=== PATIENT | male | born 1935 | race Caucasian/White ===

== ENCOUNTER → 2017-01-08 | Outpatient (CLI) | payer OTHER, BC ==
[~2017-01-08] MED LIST: CARV25TA PO; CEPH500C2 PO; FINA5TAB; LISI-725 PO; TAMS0.4C38 PO; TORS10TA14 PO; WARF5TAB7 PO
[2017-01-08 12:57] LABS: BLOOD UREA NITROGEN 21 mg/dl (7-18); BUN/CREATININE RATIO 17.6 (10-20); CALCIUM 8.4 mg/dl (8.5-10.1); CARBON DIOXIDE 27 mmol/L (21-32); CHLORIDE 108 mmol/L (98-107); GLUCOSE 103 mg/dl (70-99); POTASSIUM 4.4 mmol/L (3.5-5.1); SODIUM 141 mmol/L (136-145)
== END | disposition home or self-care (01) ==
LOC: C.LABPVFM 09:54
PROVIDERS: ATTEND Internal Medicine Cardiovascular Disease
DX: I42.9 Cardiomyopathy, unspecified (principal)

== ENCOUNTER 2017-12-16 11:05 | Emergency (ER) | payer OTHER, BC ==
[~2017-12-16] VITALS: Ht 182.9 cm; Wt 94.5 kg
[~2017-12-16 11:05] MED LIST changes: -CEPH500C2 PO; -FINA5TAB; -LISI-725 PO; +LSN10 PO; +PRS5 PO; -TORS10TA14 PO
[2017-12-16 11:09] VITALS: TEMP 36.6; Ht 182.9 cm; Wt 94.5 kg
[2017-12-16] MEDS ORDERED: DIPHTHERIA/TETANUS/PERTUSSIS 0.5 ML SYR/VIAL IM. ONE (11:45)
[2017-12-16] MEDS ORDERED: WARF10TA4 PO (12:32)
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
[2017-12-16 13:00] VITALS: PULSE 70; O2SAT 98
[2017-12-16 13:43] VITALS: BP 96/64
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
== END 2017-12-16 13:45 | disposition home or self-care (01) ==
LOC: C.EDB 11:07 → C.EDD 13:45
DX: S51.812A Laceration without foreign body of left forearm, initial encounter (principal); S50.11XA Contusion of right forearm, initial encounter; Y04.8XXA Assault by other bodily force, initial encounter; Y07.499 Other family member, perpetrator of maltreatment and neglect; Z87.442 Personal history of urinary calculi; I48.91 Unspecified atrial fibrillation; I11.0 Hypertensive heart disease with heart failure; I50.9 Heart failure, unspecified; N40.0 Benign prostatic hyperplasia without lower urinary tract symptoms; Z95.0 Presence of cardiac pacemaker; I42.9 Cardiomyopathy, unspecified; Z98.890 Other specified postprocedural states; Z80.0 Family history of malignant neoplasm of digestive organs; Z80.43 Family history of malignant neoplasm of testis; Z79.899 Other long term (current) drug therapy; Z79.01 Long term (current) use of anticoagulants; Z23 Encounter for immunization

== ENCOUNTER 2018-05-16 12:18 | Inpatient (IN) ==
[2018-05-16] MEDS ORDERED: SODIUM CHLORIDE 0.9% 1000ML 1,000 ML IV SCH ×2 (13:15→14:45)
[2018-05-16 13:52] LABS: iSTAT Hemoglobin 12.6 g/dl (14.0-18.0); iSTAT Ionized Calcium 1.1 mmol/l (1.12-1.32)
[2018-05-16 13:54] LABS: Hematocrit (blood only) 33.3 % (42-52); Hemoglobin 11.9 g/dL (14.0-18.0); Mean Corpuscular Hgb Conc 35.7 g/dL (32-36); Mean Corpuscular Volume 87.2 fL (80-100); RDW Coefficient of Variation 16.8 % (11.5-14.5); RDW Standard Deviation 54.1 fL (36.4-46.3); Red Blood Count 3.82 M/uL (4.7-6.1); White Blood Count 8.77 K/uL (4.8-10.8)
--- NOTE | 2018-05-16 14:08 | XRay Report ---
XR chest 1V portable HISTORY: 83 years-old Male Sepsis acute sepsis COMPARISON: Chest radiograph 03/06/2018 TECHNIQUE: Portable AP view of the chest FINDINGS: Cardiac silhouette is enlarged, unchanged. Calcification of the thoracic aortic arch. Stable position ing of left subclavian pacer/AICD. Mild pulmonary vascular congestion without pneumothorax. Mild blun ting of the costophrenic angles is unchanged. Subsegmental bibasilar opacities. Degenerative changes of the shoulders and spine. IMPRESSION: 1. Cardiomegaly with pulmonary vascular congestion. 2. Trace pleural effusions with bibasilar opacities suggesting atelectasis or pneumonitis. The above report was generated using voice recognition software. It may contain grammatical, syntax o r spelling errors. Electronically signed by: Robin Gautam M.D. 05/16/2018 2:06 PM
[2018-05-16 14:16] LABS: Albumin Globulin Ratio 0.8 (0.9-2); Albumin Level 2.9 gm/dl (3.4-5.0); Bilirubin,Total 3.3 mg/dl (0.2-1); Calcium 8.7 mg/dl (8.5-10.1); Creatinine Clr Calc Pharmacy 21.7 ml/min; Est GFR (African American) 22.8; Est GFR (Non-African American) 19.7; Globulin 3.9 gm/dl (2.5-4.0); Potassium 3.9 mmol/L (3.5-5.1); Total Protein 6.8 gm/dl (6.4-8.2)
[2018-05-16 14:19] LABS: Basophils # (auto) 0.01 K/uL (0-0.2); Basophils % (auto) 0.1 %; Echinocytes 1+; Eosinophils % (auto) 1.1 %; Immature Granulocytes # (auto) 0.04 K/uL (0.00-0.02); Immature Granulocytes % (auto) 0.5 %; Lymphocytes # (auto) 0.99 K/uL (1.2-3.4); Lymphocytes % (auto) 11.3 %; Monocytes % (auto) 10.3 %; Neutrophils # (auto) 6.73 K/uL (1.4-6.5); Neutrophils % (auto) 76.7 %; Platelet Count 93 K/uL (130-400)
[2018-05-16 14:25] LABS: Appearance Urine Clear (Clear); Color Urine Orange; Glucose Urine UA Negative (Negative); Ketones Urine Trace (Negative); Leukocyte Esterase Urine Negative (Negative); Nitrite Urine Negative (Negative); Protein Urine 1+ (Negative); Urobilinogen Urine Negative (Negative)
[2018-05-16 14:26] LABS: Bilirubin Urine 1+ (Negative)
[2018-05-16 14:26] LABS: INR 2.8 (0.9-1.1); Partial Thromboplastin Ratio 1.6; Partial Thromboplastin Time 41.4 Seconds (21.0-31.0); Prothrombin Time 26.5 Seconds (9.0-12.0)
[2018-05-16 14:29] LABS: Ictotest Urine Positive (Negative)
[2018-05-16 14:41] LABS: RBC Urine >30 /hpf (0-4)
[2018-05-16 14:42] LABS: Bacteria Urine 3+ (Negative); Hyaline Casts Urine 0-5 /lpf (0-5)
--- NOTE | 2018-05-16 15:49 | Ultrasound Report ---
US gallbladder HISTORY: 83 years-old Male ro jack acute right upper quadrant abdominal pain COMPARISON: CT 10/08/2017, CTA chest 01/08/2015, CT abdomen and pelvis 12/11/2012, CT abdomen 12/01/2005. TECHNIQUE: Multiple real-time sonogram images of the abdominal right upper quadrant were obtained ass essing grayscale appearance and color flow FINDINGS: Pancreas isn't secured by bowel gas. Marginal nodularity of the liver compatible with cirrhosis. Incr eased echogenicity of the liver. Hyperechoic mass of the posterior right hepatic lobe, 1.5 x 1.4 x 1. 6 cm. This lesion may correlate with the previously noted 10 mm hypodense lesion of the right hepatic lobe seen on study from 12/01/2005 no intrahepatic biliary ductal dilation. Pulsatile flow noted with in the main portal vein. Gallbladder wall is thickened, 6 mm. No shadowing cholelithiasis. Common tatianna e duct is normal, 5 mm. Mild volume right upper quadrant abdominal ascites. Small right pleural effusion. Imaged right kidney is unremarkable without hydronephrosis. IMPRESSION: 1. Cirrhotic morphology of the liver with upper abdominal ascites and small right pleural effusion. 2. Mild gallbladder wall thickening without cholelithiasis. 3. Indeterminate hyperechoic 1.6 cm lesion of the posterior right hepatic lobe. The above report was generated using voice recognition software. It may contain grammatical, syntax o r spelling errors. Electronically signed by: Robin Gautam M.D. 05/16/2018 3:48 PM
--- NOTE | 2018-05-16 16:45 | History & Physical Report ---
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 1. Neurologic - Patient is AA&O, answers questions appropriately. Diffusely weak but nonfocal exam. Presently in no pain. He did report some transient visual deficit last week - X's in his field of vision - which has since resolved. * Continue to monitor neurologic status * Pain control as needed 2. Respiratory - Patient with no respiratory distress. Adequate oxygenation and ventilation on room air. CXR with pulmonary edema and pleural effusions most likely secondary to decompensated CHF to be addressed below. * Continue to monitor respiratory status, supplemental O2 as needed to maintain sats > 92% 3. Cardiovascular - patient with extensive cardiac history, notably NICM with severely depressed EF < 20%, NSVT with BiV AICD in place, Hypertension. He presents today with vague symptoms and hypotension. I suspect acute decompensated CHF as underlying etiology of patient's symptoms. His extremities are cool and edematous and he is hypotensive. Uncertain if he is compliant with his home medications. Patient present similarly in September 2017 - he was diuresed 8L during that time and had a therapeutic thoracentesis in which 1200mL was removed from the patient's right hemithorax - negative for malignancy. I suspect that the abnormalities in his LFTs are secondary to hepatic congestion from his underlying CHF rather than from a primary hepatic condition as well as his elevated BUN and Cr. A bedside ultrasound was performed by ER physician - patient with a small pericardial effusion, no evidence of tamponade Acute decompensated CHF: * Will admit to MICU due to hypotension and potential need for vasoactive medications * Lasix 40mg IV x 1 dose now - monitor response. If patient becomes more hypotensive with administration of Lasix he may require ionotrope support * Check 2D echocardiogram * Check BNP * Trend troponins - presently 0.08, possibly secondary to strain in setting of decompensated CHF * Consider Cardiology consultation - patient may benefit from RHC * Will hold Carvedilol and Lisinopril for now given hypotension * Patient was prescribed Spironolactone in the past but is not currently taking it - would most likely benefit from this medication * Daily weights, strict I/Os, daily BMP * Low Na diet as tolerated Dilated NICM with poor EF, history of NSVT: * ICD in place * Diuresis as above * Closely monitor electrolytes and optimize as needed * Coumadin anticoagulation - INR=2.8 today, continue to monitor Atrial fibrillation, patient with PFO - s/p ablation, pacer in place. Patient anticoagulated with Coumadin * Holding metoprolol for now in setting of hypotension * Continue Coumadin * Monitor INR daily - presently 2.8 4. GI - patient with abnormal LFTs, Tbili=3.3, AST=60, XS=792. These have been abnormal in the past. RUQ US obtained which reveals cirrhotic morphology of the liver with ascites. Mild gallbladder wall thickening without cholelithiasis and hyperechoic lesion of right hepatic lobe. 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 - patient with history of BPH with severe urinary retention as well as hematuria. Walton was placed in the ER, 300mL of bloody urine in the bag. Patient had similar hematuria during last hospital stay thought to be secondary to traumatic Walton placement. It resolved during hospital stay. No evidence of UTI. He has CKD stage III, Cr 2.83 today from 1.3 prior * Maintain Walton catheter for now * Monitor CBC q 8 hours in setting of hematuria * Follow urine culture * Holding Flomax for now in setting of hypotension * Patient may require Urology evaluation for hematuria in the future * Monitor BUN and Cr * Avoid nephrotoxic agents, renal dosing where appropriate 6. Heme - WBC=8.77, baseline of 3-4. H/H and platelets near baseline as well. Patient with hematuria as mentioned above. On coumadin anticoagulation for AF * Continue to monitor with CBC q 8 hours 7. ID - patient afebrile, no leukocytosis, lactate WNL, serum HCO3=22. Does not appear to be grossly infected at this time * Follow blood and urine cultures * Continue to monitor for evidence of infection * No antibiotics at this time 8. Endocrine - Patient with hypothyroidism listed on problem list. Is presently not on Synthroid * Check TFTs F/E/N - Diuresis - will administer 40mg Lasix IV and monitor response. Will most likely need additional dosing. Monitor electrolytes and replete as needed. Low Na diet as tolerated Ppx - Patient anticoagulated with Coumadin for AF, INR therapeutic at 2.8 Code -Full per discussion with patient Dispo - Admit to MICU (2) NICM (nonischemic cardiomyopathy): (3) Abnormal LFTs: (4) Chronic kidney disease, stage 3a: (5) BPH (benign prostatic hyperplasia): (6) Hypothyroidism: (7) Nonsustained ventricular tachycardia: History of Present Illness Chief Complaint: weakness, fatigue Primary Care Provider: NO PCP Mr. Rojas is an 83yo male with longstanding history of dilated NICM thought to be secondary to tachycardia from uncontrolled AF, severely reduced EF < 20%. Patient presents today with complaints of 5 days of fatigue, lethargy, weakness, decreased exercise tolerance as well as muscle soreness, nausea with one episode of nonbloody/nonbilious vomiting. He has diffuse abdominal distention and progression of bilateral LE edema and orthopnea. He presents to the ER today as a "Code Sepsis" secondary to hypotension on arrival - BP 84/57. He was administered 2L NSS with no improvement in blood pressure. Patient denies fevers, chills, cough, SOB. Denies diarrhea/constipation/abdominal pain. Denies dysuria/back pain. He states he just feels "sick". ER Course: NSS x 2 L, bedside US performed by ER attending February 11, 2003 - CARDIAC CATHETERIZATION - no occlusive CAD, dilated LV with EF 15%, severe global hypokinesis March 13, 2006 - [place]UL[place]IN [place]OL[place] [facility] [place] [facility] [place] of external defibrillator due to low EF and presence of NSVT December 28, 2011 - BiV ICD implantation October 09, 2017 - ECHO- EF less than 20%, significant four-chamber dilation, global thinning of LV velasquez with global hypokinesis, moderate MR, moderate TR, dilated IVC, bilateral pleural effusions Allergies Allergy/AdvReac Type Severity Reaction Status Date / Time atorvastatin Allergy Unknown GI SYMPTOMS Verified 05/16/18 15:45 simvastatin Allergy Unknown GI SYMPTOMS Verified 05/16/18 15:45 Home Medications Home Medications Medication Instructions Recorded Confirmed Type carvedilol 25 mg PO BID 02/18/18 05/16/18 History warfarin [Jantoven] 2.5 mg PO QPM 03/06/18 05/16/18 History lisinopril 5 mg PO QAM #15 tab 03/10/18 05/16/18 Rx furosemide 40 mg PO DAILY 05/16/18 05/16/18 History tamsulosin 0.4 mg PO BID 05/16/18 05/16/18 History Past Med/Surg History Medical History Lower extremity edema Pacemaker (Acute) BPH (benign prostatic hyperplasia) CKD (chronic kidney disease) Hypertension CHF (congestive heart failure) (Chronic) 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 Acetabular fracture UTI (urinary tract infection) Urinary retention Urinary tract infection Surgical History Previous back surgery S/P knee surgery Status post placement of cardiac pacemaker (Resolved) Biventricular ICD Family History Other Cancer Heart attack Heart disease No pertinent family history Social History marital status: Current Living Situation: Spouse Other Information That Helps Us Care for You: No Feels Safe at Home: Yes Safety Concerns: Feels Safe At This Time Smoking Status: Never smoker Hx Alcohol Use: No Hx Substance Use: No Beliefs That Will Affect Care: None Preferred Language: Macedonian Communication Ability: Effective Review of Systems Constitutional: + body aches, + fatigue, + malaise, + weakness, + anorexia and + insomnia Eyes: + blind spots Ear, Nose, Mouth, Throat: + sore throat Respiratory: + dyspnea; no cough, no chest congestion, no sputum production and no wheezing Cardiovascular: + orthopnea, + lightheadedness and + edema; no chest pain, no chest pain with activity, no palpitations and no syncope Gastrointestinal: + bloating, + nausea and + vomiting; no abdominal pain, no constipation and no melena Genitourinary (Male): no urinary frequency Integumentary: no rash Neurologic: no numbness Physical Exam 2 Vital Signs (Past 24 Hours): Last Vital Signs Temp 36.4 C L 05/16/18 13:44 Pulse 72 05/16/18 15:31 Resp 18 05/16/18 15:31 BP 93/55 L 05/16/18 15:31 Pulse Ox 94 05/16/18 15:31 Physical Exam: General: frail, elderly male resting comfortably in bed, AA&O , answering questions appropriately, NAD Skin: thin, intact, no rashes/lesions HEENT: NC/AT, PERRL, mild scleral icterus, EOMI, external ear nontender to palpation, slight hearing loss, dry mucus membranes, neck supple, +JVD to jaw, no thyromegaly Heart: distant heart sounds, +S1/S2, regular with ectopy, no m/r/g Lungs: decreased breath sounds in bilateral bases, no rales/rhonchi/wheezes, poor inspiratory effort Abd: +BS, soft, NT, tympanic to percussion with bulging flanks, +fluid wave and ascites Ext: cool extremities, 1+ pulses in bilateral LE, 2+ in upper extremities, 2+ edema of bilateral LE Neuro: AA&O, speech clear and appropriate, no facial droop, diffuse muscular weakness, no focal deficits Results & Data Laboratory Results Lab Results 05/16/18 05/16/18 05/16/18 Range/Units 13:32 13:32 13:32 WBC 8.77 (4.8-10.8) K/uL RBC 3.82 L (4.7-6.1) M/uL Hgb 11.9 L (14.0-18.0) g/dL POC Hgb (14.0-18.0) g/dl Hct 33.3 L (42-52) % POC Hct (42-52) % MCV 87.2 (80-100) fL MCH 31.2 (25-34) pg MCHC 35.7 (32-36) g/dL RDW Std Deviation 54.1 H (36.4-46.3) fL RDW Coeff of Thor 16.8 H (11.5-14.5) % Plt Count 93 L (130-400) K/uL MPV 11.0 H (7.4-10.4) fL Immature Gran % (Auto) 0.5 % Neut % (Auto) 76.7 % Lymph % (Auto) 11.3 % Vilas % (Auto) 10.3 % Eos % (Auto) 1.1 % Baso % (Auto) 0.1 % Immature Gran # (Auto) 0.04 H (0.00-0.02) K/uL Neut # (Auto) 6.73 H (1.4-6.5) K/uL Lymph # (Auto) 0.99 L (1.2-3.4) K/uL Vilas # (Auto) 0.90 H (0.11-0.59) K/uL Eos # (Auto) 0.10 (0-0.5) K/uL Baso # (Auto) 0.01 (0-0.2) K/uL Platelet Estimate Decreased (Normal) Echinocytes 1+ PT 26.5 H (9.0-12.0) Seconds INR 2.8 H (0.9-1.1) APTT 41.4 H (21.0-31.0) Seconds PTT Ratio 1.6 POC Sodium (135-144) mEq/L Sodium 136 (136-145) mmol/L POC Potassium (3.3-5.0) mEq/L Potassium 3.9 (3.5-5.1) mmol/L POC Chloride (101-112) mEq/L Chloride 103 (98-107) mmol/L Carbon Dioxide 22 (21-32) mmol/L POC Total CO2 (24-31) mEq/l Anion Gap 10.0 (3-11) POC Anion Gap (16-25) mmol/L POC BUN (7-18) mg/dl BUN 62 H (7-18) mg/dl Creatinine 2.83 H (0.6-1.4) mg/dl POC Creatinine (0.6-1.3) mg/dl Est Cr Clr Drug Dosing 21.7 ml/min Est GFR ( Amer) 22.8 Est GFR (Non-Af Amer) 19.7 BUN/Creatinine Ratio 22.0 H (10-20) Glucose 77 (70-99) mg/dl POC Glucose (other) (70-99) mg/dl POC Lactic Acid Remberto (0.90-1.70) mmol/L Lactate (0.4-2.0) mmol/L Calcium 8.7 (8.5-10.1) mg/dl POC Ioniz Calcium Rosalia (1.12-1.32) mmol/l Total Bilirubin 3.3 H (0.2-1) mg/dl AST 60 H (15-37) U/L ALT 45 (12-78) U/L Alkaline Phosphatase 137 H (45-117) U/L POC Troponin I (0-0.045) ng/ml Total Protein 6.8 (6.4-8.2) gm/dl Albumin 2.9 L (3.4-5.0) gm/dl Globulin 3.9 (2.5-4.0) gm/dl Albumin/Globulin Ratio 0.8 L (0.9-2) Urine Color Urine Appearance (Clear) Urine pH (4.5-7.5) Ur Specific [place] (1.000-1.030) Urine Protein (Negative) Urine Glucose (UA) (Negative) Urine Ketones (Negative) Urine Blood (Negative) Urine Nitrite (Negative) Urine Bilirubin (Negative) Urine Urobilinogen (Negative) Ur Leukocyte Esterase (Negative) Urine RBC (0-4) /hpf Urine WBC (0-5) /hpf Ur Epithelial Cells (0-5) /lpf Ur Renal Epithelial Cell (0-5) /lpf Urine Bacteria (Negative) Hyaline Casts (0-5) /lpf 05/16/18 05/16/18 05/16/18 Range/Units 13:32 13:36 13:39 WBC (4.8-10.8) K/uL RBC (4.7-6.1) M/uL Hgb (14.0-18.0) g/dL POC Hgb 12.6 L (14.0-18.0) g/dl Hct (42-52) % POC Hct 37 L (42-52) % MCV (80-100) fL MCH (25-34) pg MCHC (32-36) g/dL RDW Std Deviation (36.4-46.3) fL RDW Coeff of Thor (11.5-14.5) % Plt Count (130-400) K/uL MPV (7.4-10.4) fL Immature Gran % (Auto) % Neut % (Auto) % Lymph % (Auto) % Vil[place] % (Auto) % Eos % (Auto) % Baso % (Auto) % Immature Gran # (Auto) (0.00-0.02) K/uL Neut # (Auto) (1.4-6.5) K/uL Lymph # (Auto) (1.2-3.4) K/uL Vilas # (Auto) (0.11-0.59) K/uL Eos # (Auto) (0-0.5) K/uL Baso # (Auto) (0-0.2) K/uL Platelet Estimate (Normal) Echinocytes PT (9.0-12.0) Seconds INR (0.9-1.1) APTT (21.0-31.0) Seconds PTT Ratio POC Sodium 138 (135-144) mEq/L Sodium (136-145) mmol/L POC Potassium 3.8 (3.3-5.0) mEq/L Potassium (3.5-5.1) mmol/L POC Chloride 101 (101-112) mEq/L Chloride (98-107) mmol/L Carbon Dioxide (21-32) mmol/L POC Total CO2 22 L (24-31) mEq/l Anion Gap (3-11) POC Anion Gap 20.0 (16-25) mmol/L POC BUN 52 H (7-18) mg/dl BUN (7-18) mg/dl Creatinine (0.6-1.4) mg/dl POC Creatinine 2.9 H (0.6-1.3) mg/dl Est Cr Clr Drug Dosing ml/min Est GFR ( Amer) Est GFR (Non-Af Amer) BUN/Creatinine Ratio (10-20) Glucose (70-99) mg/dl POC Glucose (other) 79 (70-99) mg/dl POC Lactic Acid Remberto (0.90-1.70) mmol/L Lactate 1.5 (0.4-2.0) mmol/L Calcium (8.5-10.1) mg/dl POC Ioniz Calcium Rosalia 1.10 L (1.12-1.32) mmol/l Total Bilirubin (0.2-1) mg/dl AST (15-37) U/L ALT (12-78) U/L Alkaline Phosphatase (45-117) U/L POC Troponin I 0.08 H (0-0.045) ng/ml Total Protein (6.4-8.2) gm/dl Albumin (3.4-5.0) gm/dl Globulin (2.5-4.0) gm/dl Albumin/Globulin Ratio (0.9-2) Urine Color Urine Appearance (Clear) Urine pH (4.5-7.5) Ur Specific [place] (1.000-1.030) Urine Protein (Negative) Urine Glucose (UA) (Negative) Urine Ketones (Negative) Urine Blood (Negative) Urine Nitrite (Negative) Urine Bilirubin (Negative) Urine Urobilinogen (Negative) Ur Leukocyte Esterase (Negative) Urine RBC (0-4) /hpf Urine WBC (0-5) /hpf Ur Epithelial Cells (0-5) /lpf Ur Renal Epithelial Cell (0-5) /lpf Urine Bacteria (Negative) Hyaline Casts (0-5) /lpf 05/16/18 05/16/18 Range/Units 13:41 13:42 WBC (4.8-10.8) K/uL RBC (4.7-6.1) M/uL Hgb (14.0-18.0) g/dL POC Hgb (14.0-18.0) g/dl Hct (42-52) % POC Hct (42-52) % MCV (80-100) fL MCH (25-34) pg MCHC (32-36) g/dL RDW Std Deviation (36.4-46.3) fL RDW Coeff of Thor (11.5-14.5) % Plt Count (130-400) K/uL MPV (7.4-10.4) fL Immature Gran % (Auto) % Neut % (Auto) % Lymph % (Auto) % Vilas % (Auto) % Eos % (Auto) % Baso % (Auto) % Immature Gran # (Auto) (0.00-0.02) K/uL Neut # (Auto) (1.4-6.5) K/uL Lymph # (Auto) (1.2-3.4) K/uL Vilas # (Auto) (0.11-0.59) K/uL Eos # (Auto) (0-0.5) K/uL Baso # (Auto) (0-0.2) K/uL Platelet Estimate (Normal) Echinocytes PT (9.0-12.0) Seconds INR (0.9-1.1) APTT (21.0-31.0) Seconds PTT Ratio POC Sodium (135-144) mEq/L Sodium (136-145) mmol/L POC Potassium (3.3-5.0) mEq/L Potassium (3.5-5.1) mmol/L POC Chloride (101-112) mEq/L Chloride (98-107) mmol/L Carbon Dioxide (21-32) mmol/L POC Total CO2 (24-31) mEq/l Anion Gap (3-11) POC Anion Gap (16-25) mmol/L POC BUN (7-18) mg/dl BUN (7-18) mg/dl Creatinine (0.6-1.4) mg/dl POC Creatinine (0.6-1.3) mg/dl Est Cr Clr Drug Dosing ml/min Est GFR ( Amer) Est GFR (Non-Af Amer) BUN/Creatinine Ratio (10-20) Glucose (70-99) mg/dl POC Glucose (other) (70-99) mg/dl POC Lactic Acid Remberto 1.35 (0.90-1.70) mmol/L Lactate (0.4-2.0) mmol/L Calcium (8.5-10.1) mg/dl POC Ioniz Calcium Rosalia (1.12-1.32) mmol/l Total Bilirubin (0.2-1) mg/dl AST (15-37) U/L ALT (12-78) U/L Alkaline Phosphatase (45-117) U/L POC Troponin I (0-0.045) ng/ml Total Protein (6.4-8.2) gm/dl Albumin (3.4-5.0) gm/dl Globulin (2.5-4.0) gm/dl Albumin/Globulin Ratio (0.9-2) Urine Color [place] Urine Appearance Clear (Clear) Urine pH 5.0 (4.5-7.5) Ur Specific [place] 1.010 (1.000-1.030) Urine Protein 1+ H (Negative) Urine Glucose (UA) Negative (Negative) Urine Ketones Trace H (Negative) Urine Blood 3+ H (Negative) Urine Nitrite Negative (Negative) Urine Bilirubin 1+ H (Negative) Urine Urobilinogen Negative (Negative) Ur Leukocyte Esterase Negative (Negative) Urine RBC >30 H (0-4) /hpf Urine WBC 10-30 H (0-5) /hpf Ur Epithelial Cells 20-30 H (0-5) /lpf Ur Renal Epithelial Cell 5-10 H (0-5) /lpf Urine Bacteria 3+ H (Negative) Hyaline Casts 0-5 (0-5) /lpf Diagnostic Findings US gallbladder HISTORY: 83 years-old Male ro jack acute right upper quadrant abdominal pain COMPARISON: CT 10/08/2017, CTA chest 01/08/2015, CT abdomen and pelvis 12/11/2012, CT abdomen 12/01/2005. TECHNIQUE: Multiple real-time sonogram images of the abdominal right upper quadrant were obtained assessing grayscale appearance and color flow FINDINGS: Pancreas isn't secured by bowel gas. Marginal nodularity of the liver compatible with cirrhosis. Increased echogenicity of the liver. Hyperechoic mass of the posterior right hepatic lobe, 1.5 x 1.4 x 1.6 cm. This lesion may correlate with the previously noted 10 mm hypodense lesion of the right hepatic lobe seen on study from 12/01/2005 no intrahepatic biliary ductal dilation. Pulsatile flow noted within the main portal vein. Gallbladder wall is thickened , 6 mm. No shadowing cholelithiasis. Common bile duct is normal, 5 mm. Mild volume right upper quadrant abdominal ascites. Small right pleural effusion. Imaged right kidney is unremarkable without hydronephrosis. IMPRESSION: 1. Cirrhotic morphology of the liver with upper abdominal ascites and small right pleural effusion. 2. Mild gallbladder wall thickening without cholelithiasis. 3. Indeterminate hyperechoic 1.6 cm lesion of the posterior right hepatic lobe. The above report was generated using voice recognition software. It may contain grammatical, syntax or spelling errors. Electronically signed by: Robin Gautam M.D. 05/16/2018 3:48 PM Dictated: 05/16/18 1542 Transcribed: 05/16/18 1542 XR chest 1V portable HISTORY: 83 years-old Male Sepsis acute sepsis COMPARISON: Chest radiograph 03/06/2018 TECHNIQUE: Portable AP view of the chest FINDINGS: Cardiac silhouette is enlarged, unchanged. Calcification of the thoracic aortic arch. Stable positioning of left subclavian pacer/AICD. Mild pulmonary vascular congestion without pneumothorax. Mild blunting of the costophrenic angles is unchanged. Subsegmental bibasilar opacities. Degenerative changes of the shoulders and spine. IMPRESSION: 1. Cardiomegaly with pulmonary vascular congestion. 2. Trace pleural effusions with bibasilar opacities suggesting atelectasis or pneumonitis. The above report was generated using voice recognition software. It may contain grammatical, syntax or spelling errors. Electronically signed by: Robin Gautam M.D. 05/16/2018 2:06 PM Dictated: 05/16/18 [id number] Transcribed: 05/16/18 140 ECG Additional Comments: The study shows paced rhythm at appx 80bpm, , right axis deviation, KW=296, QRS=94, CFq=167, low voltage Code Status & VTE Plan Code Status FULL VTE Prophylaxis Plan VTE Prophylaxis will be ordered: No Critical Care Time 45 min Critical Care Time: Yes _ (1) Hypothyroidism Hypothyroidism type: unspecified Qualified Code(s): E03.9 - Hypothyroidism, unspecified
[2018-05-16] MEDS ORDERED: ICU PROTOCOL FOR HYPERGLYCEMIA PRN (16:55)
[2018-05-16] MEDS ORDERED: FUROSEMIDE 40 MG/4 ML VIAL IV STA (16:55)
[2018-05-16] MEDS: WARFARIN SOD 2.5 MG TAB PO SCH ×2 (17:35→17:44)
[2018-05-16] MEDS ORDERED: SODIUM CHLORIDE 0.9% 1,000 ML IV SCH (17:45)
[2018-05-16 18:07] LABS: Magnesium 2.2 mg/dl (1.8-2.4); Phosphorus 3.7 mg/dl (2.5-4.9); Prealbumin 5.4 mg/dl (20-40); Troponin I 0.082 ng/ml (0-0.045)
--- NOTE | 2018-05-16 18:09 | Critical Care Consultation ---
Date of Consultation May 16, 2018 Assessment & Plan (1) Acute kidney injury: Impression: 1.Acute on chronic kidney insufficiency, the patient has been on Lasix, with poor oral intake for the past 5 days, this represents mostly dehydration rather than poor cardiac output. 2. Cardiomyopathy with ejection fraction of 20%, defibrillator in place. 3. History of A. fib, rate controlled, on Coumadin. INR is therapeutic. 4. History of urinary retention, Walton catheter is in place. Plan: 1. Although the patient has been on Lasix, I will hold off and start the patient on gentle hydration. 2. I will check sodium level in the urine. 3. I would hold off his blood pressure medications as he has been hypotensive including Coreg and lisinopril. 4. No evidence of pleural effusion on the chest x-ray. 5. Continue with Coumadin, it would serve as DVT prophylaxis as well. 6. The patient is monitored in the ICU due to the hypotension. 7. Monitor the urine output. 8. Walton catheter. 9. Continue oral intake. 10. Discussed with the staff on rounds and with , appreciate the input. Thank you, CCM time was 35 minutes. History of Present Illness Reason for Consultation: Hypertension Requesting Physician: Attending Physician: Chel Martin, DO History of Present Illness Dear : Thank you for the kind referral Mrs. Nickerson to critical care service. This is 83-year-old gentleman with history of cardiomyopathy, defibrillator in place, chronic congestive heart failure with a EF of 25%, has been maintained on Coumadin for A. fib, history of urinary retention secondary to enlarged prostate. The patient has not been feeling well for the past 5 days with generalized achiness and fatigue, the patient noted that he did not have as much urine output as he did before. The patient has been having nausea and vomiting as well. Could not maintain his oral intake. Patient was taken also Lasix and carvedilol in addition to lisinopril. The patient presented to the hospital with the above complaint. He denies any chest pain per se. He did have abdominal pain mainly in the right upper quadrant, the patient does have history of urolithiasis in the past but not amenable to surgery due to his comorbidity. Per patient. Review of system apart from the above was unremarkable. His past medical history as mentioned above, family history is noncontributory. The patient is non-smoker and does not have any history of industrial exposure in the past. Surgical history is consistent with previous placement of defibrillator. Allergies Allergy/AdvReac Type Severity Reaction Status Date / Time atorvastatin Allergy Unknown GI SYMPTOMS Verified 05/16/18 15:45 simvastatin Allergy Unknown GI SYMPTOMS Verified 05/16/18 15:45 Home Medications Home Medications Medication Instructions Recorded Confirmed Type carvedilol 25 mg PO BID 02/18/18 05/16/18 History warfarin [Jantoven] 2.5 mg PO QPM 03/06/18 05/16/18 History lisinopril 5 mg PO QAM #15 tab 03/10/18 05/16/18 Rx furosemide 40 mg PO DAILY 05/16/18 05/16/18 History tamsulosin 0.4 mg PO BID 05/16/18 05/16/18 History Patient History Medical History Lower extremity edema Pacemaker (Acute) BPH (benign prostatic hyperplasia) CKD (chronic kidney disease) Hypertension CHF (congestive heart failure) (Chronic) 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 Acetabular fracture UTI (urinary tract infection) Urinary retention Urinary tract infection Surgical History Previous back surgery S/P knee surgery Status post placement of cardiac pacemaker (Resolved) Biventricular ICD Family History Other Cancer Heart attack Heart disease No pertinent family history Social History marital status: Current Living Situation: Spouse Other Information That Helps Us Care for You: No Feels Safe at Home: Yes Safety Concerns: Feels Safe At This Time Smoking Status: Never smoker Hx Alcohol Use: No Hx Substance Use: No Beliefs That Will Affect Care: None Preferred Language: American Communication Ability: Effective Review of Systems 14 systems has been reviewed, the patient apart from the above, his review of system was unremarkable. Physical Exam 2 Vital Signs (Past 24 Hours): Last Vital Signs Temp 36.4 C 05/16/18 17:00 Pulse 87 05/16/18 17:00 Resp 18 05/16/18 17:00 BP 90/58 L 05/16/18 17:00 Pulse Ox 96 01/03/19 17:00 Physical Exam: Vital signs are stable, blood pressure is borderline, 86/55 with map of 64, heart rate is 71 mostly paced, S1-S2 systolic ejection murmur, A. fib, distant breath sounds but no crackles, laying comfortably in bed, abdomen is benign and does have vague tenderness mainly in the right upper quadrant, edema in the periphery 2+ but the patient mentioned that he has had it for the past 2 years. Neurologically he is well oriented and intact. Results & Data Laboratory Results Labs were reviewed which showed acute on chronic renal failure, the rest of his laboratory are within acceptable limits. No hyperkalemia and there is no acidosis. Diagnostic Findings Chest x-ray which I reviewed personally showed dilated cardiomyopathy, there is no signs of pulmonary vascular congestion or pleural effusion.
[2018-05-16] MEDS: SODIUM CHLORIDE 0.9% 1000ML 1,000 ML IV SCH (18:10)
[2018-05-16 18:28] LABS: T4 Free Thyroxine 1.11 ng/dl (0.8-1.6)
--- NOTE | 2018-05-16 19:25 | Emergency Department Note ---
Entered by Marta Rollins acting as a scribe for Douglas Reyna History of Present Illness General Chief complaint: Dehydration Stated complaint: PAIN ALL OVER,CAN'T EAT/DRINK OR SLEEP Time Seen by Provider: 05/16/18 13:08 Source: patient History of Present Illness Onset (ago): day(s) (a few days ago) Pain Consistency: + other (episode) Maximum Pain Intensity: 6 Quality: + other (dehydration) Exacerbated By: + movement (walking) Associated symptoms: + chest pain, + loss of appetite, + weakness and + other ( unsteady on feet, diffiuclty sleeping, abdominal pain) The patient is an 83 year old male who presents to the Emergency Room with complaints of an episode of dehydration starting a few days ago. The patient states that he has not been able to walk steadily on his feet. He states that he has felt very weak all over. He reports that he has not been able to eat or sleep because he has been having abdominal pain. He describes it as a sore pain. He notes that he also has this chest discomfort on the right side. He notes that he decided to come to the ED today when he was having difficulty breathing while sitting at the edge of his bed. The patient denies recent falls , a history of liver problems, any abdominal surgeries, and drinking alcohol. Home Medications Home Medications Medication Instructions Recorded Confirmed Type carvedilol 25 mg PO BID 02/18/18 05/16/18 History warfarin [Jantoven] 2.5 mg PO QPM 03/06/18 05/16/18 History lisinopril 5 mg PO QAM #15 tab 03/10/18 05/16/18 Rx furosemide 40 mg PO DAILY 05/16/18 05/16/18 History tamsulosin 0.4 mg PO BID 05/16/18 05/16/18 History Allergies Allergy/AdvReac Type Severity Reaction Status Date / Time atorvastatin Allergy Unknown GI SYMPTOMS Verified 05/16/18 15:45 simvastatin Allergy Unknown GI SYMPTOMS Verified 05/16/18 15:45 Past Med/Surg History Medical History Lower extremity edema Pacemaker (Acute) BPH (benign prostatic hyperplasia) CKD (chronic kidney disease) Hypertension CHF (congestive heart failure) (Chronic) 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 Acetabular fracture UTI (urinary tract infection) Urinary retention Urinary tract infection Surgical History Previous back surgery S/P knee surgery Status post placement of cardiac pacemaker (Resolved) Biventricular ICD Family History Other Cancer Heart attack Heart disease No pertinent family history Social History marital status: Current Living Situation: Spouse Other Information That Helps Us Care for You: No Feels Safe at Home: Yes Safety Concerns: Feels Safe At This Time Smoking Status: Never smoker Hx Alcohol Use: No Hx Substance Use: No Beliefs That Will Affect Care: None Preferred Language: Ukrainian Communication Ability: Effective Review of Systems See HPI for pertinent positives & negatives. and A total of 10 systems reviewed and were otherwise negative Physical Exam Vital Signs Vital Signs - 24 hr 05/16/18 13:00 05/16/18 13:26 05/16/18 13:44 Temperature 36.6 C 36.4 C L Temperature Source Oral Rectal Sepsis Recent Fever Within 48 Hours No Sepsis New/Unexplained Change in Mental Status No Sepsis Action Taken by Nursing No Action Required Pulse Rate 73 Pulse Rate [Apical] 82 86 Pulse Rhythm [Apical] Pulse Strength [Apical] Respiratory Rate 18 20 16 Respiratory Effort / Characteristics Non-Labored Spontaneous Respiratory Depth Normal Respiratory Pattern Blood Pressure 84/57 L Blood Pressure [Right Arm] 87/52 L 90/61 L Blood Pressure Mean 66 Blood Pressure Mean [Right Arm] 63 70 Blood Pressure Position [Right Arm] Pulse Oximetry 98 94 Oxygen Delivery Method Room Air Room Air 05/16/18 14:12 05/16/18 14:41 05/16/18 15:31 Temperature Temperature Source Sepsis Recent Fever Within 48 Hours Sepsis New/Unexplained Change in Mental Status Sepsis Action Taken by Nursing Pulse Rate Pulse Rate [Apical] 80 73 72 Pulse Rhythm [Apical] Pulse Strength [Apical] Respiratory Rate 18 20 18 Respiratory Effort / Characteristics Non-Labored Spontaneous Respiratory Depth Normal Respiratory Pattern Regular Blood Pressure Blood Pressure [Right Arm] 94/63 L 83/64 L 93/55 L Blood Pressure Mean Blood Pressure Mean [Right Arm] 73 70 67 Blood Pressure Position [Right Arm] Pulse Oximetry 92 96 94 Oxygen Delivery Method Room Air Room Air Room Air 05/16/18 16:03 05/16/18 16:55 05/16/18 17:00 Temperature 36.4 C 36.4 C Temperature Source Oral Oral Sepsis Recent Fever Within 48 Hours Sepsis New/Unexplained Change in Mental Status Sepsis Action Taken by Nursing Pulse Rate Pulse Rate [Apical] 72 76 87 Pulse Rhythm [Apical] Regular Regular Pulse Strength [Apical] Normal Normal Respiratory Rate 19 20 18 Respiratory Effort / Characteristics Non-Labored Non-Labored Respiratory Depth Normal Normal Respiratory Pattern Regular Regular Blood Pressure Blood Pressure [Right Arm] 89/58 L 88/56 L 90/58 L Blood Pressure Mean Blood Pressure Mean [Right Arm] 68 66 68 Blood Pressure Position [Right Arm] Lying Lying Pulse Oximetry 94 95 96 Oxygen Delivery Method Room Air Room Air Room Air 05/16/18 17:58 05/16/18 18:00 Temperature 36.4 C 36.4 C Temperature Source Oral Oral Sepsis Recent Fever Within 48 Hours Sepsis New/Unexplained Change in Mental Status Sepsis Action Taken by Nursing Pulse Rate Pulse Rate [Apical] 76 70 Pulse Rhythm [Apical] Regular Regular Pulse Strength [Apical] Normal Normal Respiratory Rate 20 18 Respiratory Effort / Characteristics Non-Labored Non-Labored Respiratory Depth Normal Normal Respiratory Pattern Regular Blood Pressure Blood Pressure [Right Arm] 90/58 L 86/55 L Blood Pressure Mean Blood Pressure Mean [Right Arm] 68 65 Blood Pressure Position [Right Arm] Lying Lying Pulse Oximetry 96 95 Oxygen Delivery Method Room Air Room Air Physical Exam GENERAL: He is oriented to person, place, and time. HENT: Exam performed. - Head: Normocephalic and atraumatic. - Right Ear: External ear normal. No mastoid tenderness. - Left Ear: External ear normal. No mastoid tenderness. - Mouth/Throat: The oropharynx is clear and dry. No trismus in the jaw. No dental abscesses or uvula swelling. No oropharyngeal exudate or tonsillar abscesses. EYES: Conjunctivae and EOM are normal. Pupils are equal, round, and reactive to light. Right eye exhibits no discharge. Left eye exhibits no discharge. Scleral icterus. NECK: Normal range of motion. Neck supple. No JVD present. No spinous process tenderness present. No carotid bruit present. No rigidity. No tracheal deviation and normal range of motion present. No Brudzinski's sign and no Kernig 's sign noted. CV: Normal rate, regular rhythm, normal heart sounds and intact distal pulses. There is no peripheral edema. Palpable radial pulses bue. PULM/CHEST: Effort normal and breath sounds normal. No respiratory distress. No stridor. He has no wheezes. He has rhonchi bilaterally with rales at the bases. - Chest Wall: He exhibits no tenderness. ABD: The abdomen is soft. Bowel sounds are normal. He has mild distension. No fluid wave. No mass is present. There is no tenderness. There is no rebound, no guarding, no Crowder's sign and no tenderness at McBurney's point. Rovsig negative. MUSC/SKEL: Normal range of motion. There is no peripheral edema, tenderness or deformity. LYMPH: No cervical adenopathy. NEURO: He is alert and oriented to person, place, and time. He has normal strength. No cranial nerve deficit or sensory deficit. Coordination and gait normal. GCS eye subscore is 4. GCS verbal subscore is 5. GCS motor subscore is 6. Cerebellar tests wnl. SKIN: Skin is warm and dry. He is not diaphoretic. Appears slightly jaundiced. PSYCH: He has a normal mood and affect. Behavior is normal. Judgment and thought content normal. Course 1309: Past medical records reviewed. The patient was evaluated in room C2B, and a complete history and physical examination were performed. Patient was hypotensive on arrival. A code sepsis was initiated at this time. 2 large- bore IV access sites were obtained. A bedside CASTLE ultrasound was performed at this time which showed a large amount of ascites in his abdomen. There was a right sided pleural effusion. He had a perdicardial effusion. No cardiac tamponode . NO AAA. His IVC was collapsed. Fluid bolus was initiated. 1348: I reevaluated the patient. His POC lactic acid was 1.35. His POC creatinine was 2.9 which is more than twice his baseline of 1.3. His rectal temperature is within normal limits. His blood pressure is improving and is now at 92/57 after 250 cc of fluid. 1430: I reevaluated the patient and his blood pressure has improved. It is currently 94/63. On EMR review, the patient's BP at the time of discharge in February was 95/60. His labs show no leukocytosis. It does show his INR is 2.8 which is up from his baseline of 2.3. His creatinine is 2.83 which is up form his baseline at 1.3. His alkaline phosphatase is elevated at 137, which is at baseline. His liver enzymes are also at baseline. A Walton will be placed and he will be continued on IV fluids. The patient denies pain on palpation of the abdomen at this time. I have little concern for SBP as he is afebrile. I updated him on his test results and the treatment plan. He verbally agrees and understands. I discussed the patient's case with Dr. Magdiel FIORE Hospitalist. She will evaluate the patient for further management, but is requesting an ultrasound be done of the right upper quadrant. Consultations Consultation #1: I discussed the patient's case with Dr. Magdiel FIORE Hopspitalist. She will evaluate the patient for further management, but is requesting an ultrasound be done of the right upper quadrant. Time: 14:30 Administered Medications Sodium Chloride (Nss 1000ml) 1,000 mls @ 80 mls/hr IV .[id number] [facility] Stop: 06/15/18 17:59 Last Admin: 05/16/18 18:10 Dose: 80 mls/hr Discontinued Medications Furosemide (Lasix) 40 mg IV NOW STA Stop: 05/16/18 16:56 Last Admin: 05/16/18 18:10 Dose: Not Given Sodium Chloride (Nss 1000ml) 1,000 mls @ 999 mls/hr IV .[id number] [facility] Stop: 05/16/18 14:15 Last Infusion: 05/16/18 14:31 Dose: 0 mls/hr Admin: 05/16/18 13:29 Dose: 999 mls/hr Sodium Chloride (Nss 1000ml) 1,000 mls @ 125 mls/hr IV .Q8H [facility] Stop: 06/15/18 14:44 Last Infusion: 05/16/18 17:20 Dose: Infusion: 05/16/18 17:00 Dose: 0 mls/hr Admin: 05/16/18 14:51 Dose: 125 mls/hr Warfarin Sodium (Coumadin) 2.5 mg PO DAILY@1600 [facility] Stop: 06/15/18 15:29 Last Admin: 05/16/18 17:44 Dose: Not Given Admin: 05/16/18 17:35 Dose: 2.5 mg Medical Decision Making Medical Records Attestation: I reviewed the patient's medical records. Home Medications Current Medication List: was personally reviewed by me Laboratory Data Attestation: I reviewed the patient's lab results. Result diagrams: 05/16/18 13:32 05/16/18 13:32 Lab Results 05/16/18 05/16/18 05/16/18 Range/Units 13:32 13:32 13:32 WBC 8.77 (4.8-10.8) K/uL RBC 3.82 L (4.7-6.1) M/uL Hgb 11.9 L (14.0-18.0) g/dL POC Hgb (14.0-18.0) g/dl Hct 33.3 L (42-52) % POC Hct (42-52) % MCV 87.2 (80-100) fL MCH 31.2 (25-34) pg MCHC 35.7 (32-36) g/dL RDW Std Deviation 54.1 H (36.4-46.3) fL RDW Coeff of Thor 16.8 H (11.5-14.5) % Plt Count 93 L (130-400) K/uL MPV 11.0 H (7.4-10.4) fL Immature Gran % (Auto) 0.5 % Neut % (Auto) 76.7 % Lymph % (Auto) 11.3 % Arthur % (Auto) 10.3 % Eos % (Auto) 1.1 % Baso % (Auto) 0.1 % Immature Gran # (Auto) 0.04 H (0.00-0.02) K/uL Neut # (Auto) 6.73 H (1.4-6.5) K/uL Lymph # (Auto) 0.99 L (1.2-3.4) K/uL Arthur # (Auto) 0.90 H (0.11-0.59) K/uL Eos # (Auto) 0.10 (0-0.5) K/uL Baso # (Auto) 0.01 (0-0.2) K/uL Platelet Estimate Decreased (Normal) Echinocytes 1+ PT 26.5 H (9.0-12.0) Seconds INR 2.8 H (0.9-1.1) APTT 41.4 H (21.0-31.0) Seconds PTT Ratio 1.6 POC Sodium (135-144) mEq/L Sodium 136 (136-145) mmol/L POC Potassium (3.3-5.0) mEq/L Potassium 3.9 (3.5-5.1) mmol/L POC Chloride (101-112) mEq/L Chloride 103 (98-107) mmol/L Carbon Dioxide 22 (21-32) mmol/L POC Total CO2 (24-31) mEq/l Anion Gap 10.0 (3-11) POC Anion Gap (16-25) mmol/L POC BUN (7-18) mg/dl BUN 62 H (7-18) mg/dl Creatinine 2.83 H (0.6-1.4) mg/dl POC Creatinine (0.6-1.3) mg/dl Est Cr Clr Drug Dosing 21.7 ml/min Est GFR ( Amer) 22.8 Est GFR (Non-Af Amer) 19.7 BUN/Creatinine Ratio 22.0 H (10-20) Glucose 77 (70-99) mg/dl POC Glucose (70-99) POC Glucose (other) (70-99) mg/dl POC Lactic Acid Remberto (0.90-1.70) mmol/L Lactate (0.4-2.0) mmol/L Calcium 8.7 (8.5-10.1) mg/dl POC Ioniz Calcium Rosalia (1.12-1.32) mmol/l Phosphorus (2.5-4.9) mg/dl Magnesium (1.8-2.4) mg/dl Total Bilirubin 3.3 H (0.2-1) mg/dl AST 60 H (15-37) U/L ALT 45 (12-78) U/L Alkaline Phosphatase 137 H (45-117) U/L POC Troponin I (0-0.045) ng/ml Troponin I (0-0.045) ng/ml NT-Pro-B Natriuret Pep (0-1800) pg/ml Total Protein 6.8 (6.4-8.2) gm/dl Albumin 2.9 L (3.4-5.0) gm/dl Globulin 3.9 (2.5-4.0) gm/dl Albumin/Globulin Ratio 0.8 L (0.9-2) Prealbumin (20-40) mg/dl TSH (0.300-4.500) uIu/ml Free T4 (0.8-1.6) ng/dl Random Cortisol mcg/dl Urine Color Urine Appearance (Clear) Urine pH (4.5-7.5) Ur Specific [place] (1.000-1.030) Urine Protein (Negative) Urine Glucose (UA) (Negative) Urine Ketones (Negative) Urine Blood (Negative) Urine Nitrite (Negative) Urine Bilirubin (Negative) Urine Urobilinogen (Negative) Ur Leukocyte Esterase (Negative) Urine RBC (0-4) /hpf Urine WBC (0-5) /hpf Ur Epithelial Cells (0-5) /lpf Ur Renal Epithelial Cell (0-5) /lpf Urine Bacteria (Negative) Hyaline Casts (0-5) /lpf Ur Random Sodium mmol/L Nasal Screen MRSA (PCR) (Negative) 05/16/18 05/16/18 05/16/18 Range/Units 13:32 13:36 13:39 WBC (4.8-10.8) K/uL RBC (4.7-6.1) M/uL Hgb (14.0-18.0) g/dL POC Hgb 12.6 L (14.0-18.0) g/dl Hct (42-52) % POC Hct 37 L (42-52) % MCV (80-100) fL MCH (25-34) pg MCHC (32-36) g/dL RDW Std Deviation (36.4-46.3) fL RDW Coeff of Thor (11.5-14.5) % Plt Count (130-400) K/uL MPV (7.4-10.4) fL Immature Gran % (Auto) % Neut % (Auto) % Lymph % (Auto) % Arthur % (Auto) % Eos % (Auto) % Baso % (Auto) % Immature Gran # (Auto) (0.00-0.02) K/uL Neut # (Auto) (1.4-6.5) K/uL Lymph # (Auto) (1.2-3.4) K/uL Arthur # (Auto) (0.11-0.59) K/uL Eos # (Auto) (0-0.5) K/uL Baso # (Auto) (0-0.2) K/uL Platelet Estimate (Normal) Echinocytes PT (9.0-12.0) Seconds INR (0.9-1.1) APTT (21.0-31.0) Seconds PTT Ratio POC Sodium 138 (135-144) mEq/L Sodium (136-145) mmol/L POC Potassium 3.8 (3.3-5.0) mEq/L Potassium (3.5-5.1) mmol/L POC Chloride 101 (101-112) mEq/L Chloride (98-107) mmol/L Carbon Dioxide (21-32) mmol/L POC Total CO2 22 L (24-31) mEq/l Anion Gap (3-11) POC Anion Gap 20.0 (16-25) mmol/L POC BUN 52 H (7-18) mg/dl BUN (7-18) mg/dl Creatinine (0.6-1.4) mg/dl POC Creatinine 2.9 H (0.6-1.3) mg/dl Est Cr Clr Drug Dosing ml/min Est GFR ( Amer) Est GFR (Non-Af Amer) BUN/Creatinine Ratio (10-20) Glucose (70-99) mg/dl POC Glucose (70-99) POC Glucose (other) 79 (70-99) mg/dl POC Lactic Acid Remberto (0.90-1.70) mmol/L Lactate 1.5 (0.4-2.0) mmol/L Calcium (8.5-10.1) mg/dl POC Ioniz Calcium Rosalia 1.10 L (1.12-1.32) mmol/l Phosphorus (2.5-4.9) mg/dl Magnesium (1.8-2.4) mg/dl Total Bilirubin (0.2-1) mg/dl AST (15-37) U/L ALT (12-78) U/L Alkaline Phosphatase (45-117) U/L POC Troponin I 0.08 H (0-0.045) ng/ml Troponin I (0-0.045) ng/ml NT-Pro-B Natriuret Pep (0-1800) pg/ml Total Protein (6.4-8.2) gm/dl Albumin (3.4-5.0) gm/dl Globulin (2.5-4.0) gm/dl Albumin/Globulin Ratio (0.9-2) Prealbumin (20-40) mg/dl TSH (0.300-4.500) uIu/ml Free T4 (0.8-1.6) ng/dl Random Cortisol mcg/dl Urine Color Urine Appearance (Clear) Urine pH (4.5-7.5) Ur Specific [place] (1.000-1.030) Urine Protein (Negative) Urine Glucose (UA) (Negative) Urine Ketones (Negative) Urine Blood (Negative) Urine Nitrite (Negative) Urine Bilirubin (Negative) Urine Urobilinogen (Negative) Ur Leukocyte Esterase (Negative) Urine RBC (0-4) /hpf Urine WBC (0-5) /hpf Ur Epithelial Cells (0-5) /lpf Ur Renal Epithelial Cell (0-5) /lpf Urine Bacteria (Negative) Hyaline Casts (0-5) /lpf Ur Random Sodium mmol/L Nasal Screen MRSA (PCR) (Negative) 05/16/18 05/16/18 05/16/18 Range/Units 13:41 13:42 16:48 WBC (4.8-10.8) K/uL RBC (4.7-6.1) M/uL Hgb (14.0-18.0) g/dL POC Hgb (14.0-18.0) g/dl Hct (42-52) % POC Hct (42-52) % MCV (80-100) fL MCH (25-34) pg MCHC (32-36) g/dL RDW Std Deviation (36.4-46.3) fL RDW Coeff of Thor (11.5-14.5) % Plt Count (130-400) K/uL MPV (7.4-10.4) fL Immature Gran % (Auto) % Neut % (Auto) % Lymph % (Auto) % Arthur % (Auto) % Eos % (Auto) % Baso % (Auto) % Immature Gran # (Auto) (0.00-0.02) K/uL Neut # (Auto) (1.4-6.5) K/uL Lymph # (Auto) (1.2-3.4) K/uL Arthur # (Auto) (0.11-0.59) K/uL Eos # (Auto) (0-0.5) K/uL Baso # (Auto) (0-0.2) K/uL Platelet Estimate (Normal) Echinocytes PT (9.0-12.0) Seconds INR (0.9-1.1) APTT (21.0-31.0) Seconds PTT Ratio POC Sodium (135-144) mEq/L Sodium (136-145) mmol/L POC Potassium (3.3-5.0) mEq/L Potassium (3.5-5.1) mmol/L POC Chloride (101-112) mEq/L Chloride (98-107) mmol/L Carbon Dioxide (21-32) mmol/L POC Total CO2 (24-31) mEq/l Anion Gap (3-11) POC Anion Gap (16-25) mmol/L POC BUN (7-18) mg/dl BUN (7-18) mg/dl Creatinine (0.6-1.4) mg/dl POC Creatinine (0.6-1.3) mg/dl Est Cr Clr Drug Dosing ml/min Est GFR ( Amer) Est GFR (Non-Af Amer) BUN/Creatinine Ratio (10-20) Glucose (70-99) mg/dl POC Glucose (70-99) POC Glucose (other) (70-99) mg/dl POC Lactic Acid Remberto 1.35 (0.90-1.70) mmol/L Lactate (0.4-2.0) mmol/L Calcium (8.5-10.1) mg/dl POC Ioniz Calcium Rosalia (1.12-1.32) mmol/l Phosphorus (2.5-4.9) mg/dl Magnesium (1.8-2.4) mg/dl Total Bilirubin (0.2-1) mg/dl AST (15-37) U/L ALT (12-78) U/L Alkaline Phosphatase (45-117) U/L POC Troponin I (0-0.045) ng/ml Troponin I (0-0.045) ng/ml NT-Pro-B Natriuret Pep (0-1800) pg/ml Total Protein (6.4-8.2) gm/dl Albumin (3.4-5.0) gm/dl Globulin (2.5-4.0) gm/dl Albumin/Globulin Ratio (0.9-2) Prealbumin (20-40) mg/dl TSH (0.300-4.500) uIu/ml Free T4 (0.8-1.6) ng/dl Random Cortisol mcg/dl Urine Color Garner Urine Appearance Clear (Clear) Urine pH 5.0 (4.5-7.5) Ur Specific [place] 1.010 (1.000-1.030) Urine Protein 1+ H (Negative) Urine Glucose (UA) Negative (Negative) Urine Ketones Trace H (Negative) Urine Blood 3+ H (Negative) Urine Nitrite Negative (Negative) Urine Bilirubin 1+ H (Negative) Urine Urobilinogen Negative (Negative) Ur Leukocyte Esterase Negative (Negative) Urine RBC >30 H (0-4) /hpf Urine WBC 10-30 H (0-5) /hpf Ur Epithelial Cells 20-30 H (0-5) /lpf Ur Renal Epithelial Cell 5-10 H (0-5) /lpf Urine Bacteria 3+ H (Negative) Hyaline Casts 0-5 (0-5) /lpf Ur Random Sodium mmol/L Nasal Screen MRSA (PCR) Negative (Negative) 05/16/18 05/16/18 05/16/18 Range/Units 17:13 17:13 17:16 WBC (4.8-10.8) K/uL RBC (4.7-6.1) M/uL Hgb (14.0-18.0) g/dL POC Hgb (14.0-18.0) g/dl Hct (42-52) % POC Hct (42-52) % MCV (80-100) fL MCH (25-34) pg MCHC (32-36) g/dL RDW Std Deviation (36.4-46.3) fL RDW Coeff of Thor (11.5-14.5) % Plt Count (130-400) K/uL MPV (7.4-10.4) fL Immature Gran % (Auto) % Neut % (Auto) % Lymph % (Auto) % Arthur % (Auto) % Eos % (Auto) % Baso % (Auto) % Immature Gran # (Auto) (0.00-0.02) K/uL Neut # (Auto) (1.4-6.5) K/uL Lymph # (Auto) (1.2-3.4) K/uL Arthur # (Auto) (0.11-0.59) K/uL Eos # (Auto) (0-0.5) K/uL Baso # (Auto) (0-0.2) K/uL Platelet Estimate (Normal) Echinocytes PT (9.0-12.0) Seconds INR (0.9-1.1) APTT (21.0-31.0) Seconds PTT Ratio POC Sodium (135-144) mEq/L Sodium (136-145) mmol/L POC Potassium (3.3-5.0) mEq/L Potassium (3.5-5.1) mmol/L POC Chloride (101-112) mEq/L Chloride (98-107) mmol/L Carbon Dioxide (21-32) mmol/L POC Total CO2 (24-31) mEq/l Anion Gap (3-11) POC Anion Gap (16-25) mmol/L POC BUN (7-18) mg/dl BUN (7-18) mg/dl Creatinine (0.6-1.4) mg/dl POC Creatinine (0.6-1.3) mg/dl Est Cr Clr Drug Dosing ml/min Est GFR ( Amer) Est GFR (Non-Af Amer) BUN/Creatinine Ratio (10-20) Glucose (70-99) mg/dl POC Glucose 78 (70-99) POC Glucose (other) (70-99) mg/dl POC Lactic Acid Remberto (0.90-1.70) mmol/L Lactate (0.4-2.0) mmol/L Calcium (8.5-10.1) mg/dl POC Ioniz Calcium Rosalia (1.12-1.32) mmol/l Phosphorus 3.7 (2.5-4.9) mg/dl Magnesium 2.2 (1.8-2.4) mg/dl Total Bilirubin (0.2-1) mg/dl AST (15-37) U/L ALT (12-78) U/L Alkaline Phosphatase (45-117) U/L POC Troponin I (0-0.045) ng/ml Troponin I 0.082 H* (0-0.045) ng/ml NT-Pro-B Natriuret Pep 27232 H (0-1800) pg/ml Total Protein (6.4-8.2) gm/dl Albumin (3.4-5.0) gm/dl Globulin (2.5-4.0) gm/dl Albumin/Globulin Ratio (0.9-2) Prealbumin 5.4 L (20-40) mg/dl TSH 10.000 H (0.300-4.500) uIu/ml Free T4 1.11 (0.8-1.6) ng/dl Random Cortisol 15.69 mcg/dl Urine Color Urine Appearance (Clear) Urine pH (4.5-7.5) Ur Specific [place] (1.000-1.030) Urine Protein (Negative) Urine Glucose (UA) (Negative) Urine Ketones (Negative) Urine Blood (Negative) Urine Nitrite (Negative) Urine Bilirubin (Negative) Urine Urobilinogen (Negative) Ur Leukocyte Esterase (Negative) Urine RBC (0-4) /hpf Urine WBC (0-5) /hpf Ur Epithelial Cells (0-5) /lpf Ur Renal Epithelial Cell (0-5) /lpf Urine Bacteria (Negative) Hyaline Casts (0-5) /lpf Ur Random Sodium mmol/L Nasal Screen MRSA (PCR) (Negative) 05/16/18 Range/Units 18:00 WBC (4.8-10.8) K/uL RBC (4.7-6.1) M/uL Hgb (14.0-18.0) g/dL POC Hgb (14.0-18.0) g/dl Hct (42-52) % POC Hct (42-52) % MCV (80-100) fL MCH (25-34) pg MCHC (32-36) g/dL RDW Std Deviation (36.4-46.3) fL RDW Coeff of Thor (11.5-14.5) % Plt Count (130-400) K/uL MPV (7.4-10.4) fL Immature Gran % (Auto) % Neut % (Auto) % Lymph % (Auto) % Arthur % (Auto) % Eos % (Auto) % Baso % (Auto) % Immature Gran # (Auto) (0.00-0.02) K/uL Neut # (Auto) (1.4-6.5) K/uL Lymph # (Auto) (1.2-3.4) K/uL Arthur # (Auto) (0.11-0.59) K/uL Eos # (Auto) (0-0.5) K/uL Baso # (Auto) (0-0.2) K/uL Platelet Estimate (Normal) Echinocytes PT (9.0-12.0) Seconds INR (0.9-1.1) APTT (21.0-31.0) Seconds PTT Ratio POC Sodium (135-144) mEq/L Sodium (136-145) mmol/L POC Potassium (3.3-5.0) mEq/L Potassium (3.5-5.1) mmol/L POC Chloride (101-112) mEq/L Chloride (98-107) mmol/L Carbon Dioxide (21-32) mmol/L POC Total CO2 (24-31) mEq/l Anion Gap (3-11) POC Anion Gap (16-25) mmol/L POC BUN (7-18) mg/dl BUN (7-18) mg/dl Creatinine (0.6-1.4) mg/dl POC Creatinine (0.6-1.3) mg/dl Est Cr Clr Drug Dosing ml/min Est GFR ( Amer) Est GFR (Non-Af Amer) BUN/Creatinine Ratio (10-20) Glucose (70-99) mg/dl POC Glucose (70-99) POC Glucose (other) (70-99) mg/dl POC Lactic Acid [place] (0.90-1.70) mmol/L Lactate (0.4-2.0) mmol/L Calcium (8.5-10.1) mg/dl POC Ioniz Calcium [place] (1.12-1.32) mmol/l Phosphorus (2.5-4.9) mg/dl Magnesium (1.8-2.4) mg/dl Total Bilirubin (0.2-1) mg/dl AST (15-37) U/L ALT (12-78) U/L Alkaline Phosphatase (45-117) U/L POC Troponin I (0-0.045) ng/ml Troponin I (0-0.045) ng/ml NT-Pro-B Natriuret Pep (0-1800) pg/ml Total Protein (6.4-8.2) gm/dl Albumin (3.4-5.0) gm/dl Globulin (2.5-4.0) gm/dl Albumin/Globulin Ratio (0.9-2) Prealbumin (20-40) mg/dl TSH (0.300-4.500) uIu/ml Free T4 (0.8-1.6) ng/dl Random Cortisol mcg/dl Urine Color Urine Appearance (Clear) Urine pH (4.5-7.5) Ur Specific [place] (1.000-1.030) Urine Protein (Negative) Urine Glucose (UA) (Negative) Urine Ketones (Negative) Urine Blood (Negative) Urine Nitrite (Negative) Urine Bilirubin (Negative) Urine Urobilinogen (Negative) Ur Leukocyte Esterase (Negative) Urine RBC (0-4) /hpf Urine WBC (0-5) /hpf Ur Epithelial Cells (0-5) /lpf Ur Renal Epithelial Cell (0-5) /lpf Urine Bacteria (Negative) Hyaline Casts (0-5) /lpf Ur Random Sodium 16 mmol/L Nasal Screen MRSA (PCR) (Negative) Imaging Data Radiologist's Impression: Radiology results as stated below per my review and the radiologist's interpretation: XR chest 1V portable HISTORY: 83 years-old Male Sepsis acute sepsis COMPARISON: Chest radiograph 03/06/2018 TECHNIQUE: Portable AP view of the chest FINDINGS: Cardiac silhouette is enlarged, unchanged. Calcification of the thoracic aortic arch. Stable positioning of left subclavian pacer/AICD. Mild pulmonary vascular congestion without pneumothorax. Mild blunting of the costophrenic angles is unchanged. Subsegmental bibasilar opacities. Degenerative changes of the shoulders and spine. IMPRESSION: 1. Cardiomegaly with pulmonary vascular congestion. 2. Trace pleural effusions with bibasilar opacities suggesting atelectasis or pneumonitis. The above report was generated using voice recognition software. It may contain grammatical, syntax or spelling errors. Electronically signed by: Robin Gautam M.D. 05/16/2018 2:06 PM US gallbladder HISTORY: 83 years-old Male ro jack acute right upper quadrant abdominal pain COMPARISON: CT 10/08/2017, CTA chest 01/08/2015, CT abdomen and pelvis 12/11/2012, CT abdomen 12/01/2005. TECHNIQUE: Multiple real-time sonogram images of the abdominal right upper quadrant were obtained assessing grayscale appearance and color flow FINDINGS: Pancreas isn't secured by bowel gas. Marginal nodularity of the liver compatible with cirrhosis. Increased echogenicity of the liver. Hyperechoic mass of the posterior right hepatic lobe, 1.5 x 1.4 x 1.6 cm. This lesion may correlate with the previously noted 10 mm hypodense lesion of the right hepatic lobe seen on study from 12/01/2005 no intrahepatic biliary ductal dilation. Pulsatile flow noted within the main portal vein. Gallbladder wall is thickened , 6 mm. No shadowing cholelithiasis. Common bile duct is normal, 5 mm. Mild volume right upper quadrant abdominal ascites. Small right pleural effusion. Imaged right kidney is unremarkable without hydronephrosis. IMPRESSION: 1. Cirrhotic morphology of the liver with upper abdominal ascites and small right pleural effusion. 2. Mild gallbladder wall thickening without cholelithiasis. 3. Indeterminate hyperechoic 1.6 cm lesion of the posterior right hepatic lobe. The above report was generated using voice recognition software. It may contain grammatical, syntax or spelling errors. Electronically signed by: Robin Gautam M.D. 05/16/2018 3:48 PM ECG Data Attestation: I personally reviewed and interpreted this ECG as follows: Indication: weakness Rate (beats per minute): 72 Rhythm: other (paced rhythm) Findings: + other (NJ interval 130, QRS interval 92, QT-c interval 299); no ST depression and no ST elevation Comparison ECG Date: from (03/06/2018) Change: no significant change Blood Pressure Blood Pressure Findings: Low blood pressure Blood Pressure Disposition: further management by hospitalist AMY Narrative 1309: Past medical records reviewed. The patient was evaluated in room C2B, and a complete history and physical examination were performed. Patient was hypotensive on arrival. A code sepsis was initiated at this time. 2 large- bore IV access sites were obtained. A bedside CASTLE ultrasound was performed at this time which showed a large amount of ascites in his abdomen. There was a right sided pleural effusion. He had a perdicardial effusion. No cardiac tamponode . NO AAA. His IVC was collapsed. Fluid bolus was initiated. 1348: I reevaluated the patient. His POC lactic acid was 1.35. His POC creatinine was 2.9 which is more than twice his baseline of 1.3. His rectal temperature is within normal limits. His blood pressure is improving and is now at 92/57 after 250 cc of fluid. 1430: I reevaluated the patient and his blood pressure has improved. It is currently 94/63. On EMR review, the patient's BP at the time of discharge in February was 95/60. His labs show no leukocytosis. It does show his INR is 2.8 which is up from his baseline of 2.3. His creatinine is 2.83 which is up form his baseline at 1.3. His alkaline phosphatase is elevated at 137, which is at baseline. His liver enzymes are also at baseline. A Walton will be placed and he will be continued on IV fluids. The patient denies pain on palpation of the abdomen at this time. I have little concern for SBP as he is afebrile. I updated him on his test results and the treatment plan. He verbally agrees and understands. I discussed the patient's case with Dr. Magdiel FIORE Hospitalist. She will evaluate the patient for further management, but is requesting an ultrasound be done of the right upper quadrant. Impression & Plan Acute kidney injury, Jaundice Discharge Plan Visit Data *Final* Discharge Date/Time: 05/16/18 16:50 Chief Complaint: Dehydration Stated Complaint: PAIN ALL OVER,CAN'T EAT/DRINK OR SLEEP ED Provider: Douglas Reyna Discharge Problem: Acute kidney injury, Jaundice Patient Disposition: Being Evaluated by Hospitalist Discharge Instructions Interventions: ED Discharge Assessment Last Done: 05/16/18 16:16 The emanuelibe's documentation has been prepared under my direction and personally reviewed by me in its entirety. I confirm that the note above accurately reflects all work, treatment, procedures, and medical decision making performed by me.
[2018-05-17] MEDS: SODIUM CHLORIDE 0.9% 1000ML 1,000 ML IV SCH ×2 (03:36→17:01)
[2018-05-17 05:12] LABS: Hematocrit (blood only) 31.5 % (42-52); Hemoglobin 11.3 g/dL (14.0-18.0); Mean Corpuscular Hgb Conc 35.9 g/dL (32-36); Mean Corpuscular Volume 87.5 fL (80-100); RDW Coefficient of Variation 16.9 % (11.5-14.5); RDW Standard Deviation 53.9 fL (36.4-46.3); White Blood Count 5.28 K/uL (4.8-10.8)
[2018-05-17 05:20] LABS: INR 3.2 (0.9-1.1); Prothrombin Time 30.1 Seconds (9.0-12.0)
[2018-05-17 05:30] LABS: Mean Platelet Volume 10.8 fL (7.4-10.4); Platelet Count 78 K/uL (130-400)
[2018-05-17 05:38] LABS: Basophils # (auto) 0.03 K/uL (0-0.2); Basophils % (auto) 0.6 %; Echinocytes 1+; Eosinophils # (auto) 0.12 K/uL (0-0.5); Eosinophils % (auto) 2.3 %; Immature Granulocytes # (auto) 0.02 K/uL (0.00-0.02); Immature Granulocytes % (auto) 0.4 %; Lymphocytes # (auto) 0.91 K/uL (1.2-3.4); Lymphocytes % (auto) 17.2 %; Monocytes # (auto) 0.73 K/uL (0.11-0.59); Monocytes % (auto) 13.8 %; Neutrophils # (auto) 3.47 K/uL (1.4-6.5); Neutrophils % (auto) 65.7 %; Ovalocytes 1+
[2018-05-17 05:40] LABS: Albumin Level 2.5 gm/dl (3.4-5.0); BUN Creatinine Ratio 25.6 (10-20); Calcium 7.8 mg/dl (8.5-10.1); Creatinine Clr Calc Pharmacy 26.1 ml/min; Est GFR (African American) 28.6; Est GFR (Non-African American) 24.7; Potassium 3.8 mmol/L (3.5-5.1)
[2018-05-17 05:45] LABS: Total Protein 6.3 gm/dl (6.4-8.2)
[2018-05-17] MEDS: DOBUTamine / D5W 500 MG/250 ML BAG IV SCH ×2 (08:57→20:02)
[2018-05-17] MEDS ORDERED: ONDANSETRON INJ 2 MG/ML 2 ML VIAL IV PRN (09:06)
--- NOTE | 2018-05-17 12:20 | Critical Care Progress Note ---
Date of Service May 17, 2018 Assessment & Plan (1) Acute kidney injury: Impression: 1.Acute on chronic kidney insufficiency, the patient has been on Lasix, with poor oral intake for the past 5 days, this represents mostly dehydration rather than poor cardiac output. 2. Cardiomyopathy with ejection fraction of 20%, defibrillator in place. And decompensating. 3. History of A. fib, rate controlled, on Coumadin. INR is therapeutic. 4. History of urinary retention, Walton catheter is in place. Plan: 1. Continue to hold off Lasix. 2. Urine sodium is 16 despite the fact patient is on normal saline. This speaks for prerenal lower than renal ATN. 3. Continue to hold off Coreg and lisinopril. 4. Start the patient on dobutamine, adjust the dose to map of 65 if possible. In fact he was started on 2.5 and reach 5 mics per KG per minute with map of 73. 5. Adjustment of INR and Coumadin dose. 6. I will consult Dr. Hameed from cardiology. Evaluation for cardiomyopathy, PA catheter. 7. Monitor the urine output. 8. Walton catheter. 9. Continue oral intake. The patient continues to have intermittent nausea likely related to poor cardiac output. 10. Discussed with the staff on rounds. 11. Zoan for bita. Thank you, CCM time was 35 minutes. Subjective The patient has been having persistent nausea, no vomiting, occasional abdominal discomfort, vague and he is refusing to eat due to the above symptoms. The patient did not have any chest pain per se, no increased shortness of breath, he is tolerating IV fluids, he denies any diarrhea, no melena, no cough or hemoptysis, the rest of his review of system was unremarkable. Physical Exam 2 Vital Signs (Past 24 Hours): Last Vital Signs Temp 36.5 C 05/17/18 11: Pulse 73 05/17/18 11: Resp 14 05/17/18 11:01 BP 94/60 L 05/17/18 11: Pulse Ox 94 05/17/18 11:01 Physical Exam: Chronically ill appearing, vital signs has been with low blood pressure, he is totally paced, positive JVP but minimally, S1-S2 regular rate and rhythm, distant breath sounds bilaterally, abdomen is benign, edema in the periphery 2+. Neurologically he is nonfocal. Results & Data Laboratory Results His labs showed slight improvement in his BUN and creatinine, white count are normal, hematocrit of 31 and platelets 78. Diagnostic Findings Chest x-ray showed cardiomegaly, there is haziness mainly at the bases likely reflecting bilateral small pleural effusion. IVCD in place. Echocardiogram was done dilated left ventricle, with ejection fraction of 15%, he had global hypokinesis which appeared to be severe as well. RVSP of 40+ CVP.
--- NOTE | 2018-05-17 13:04 | Hospitalist Progress Note ---
Date of Service May 17, 2018 Assessment & Plan (1) Hypotension: (2) NICM (nonischemic cardiomyopathy): (3) Abnormal LFTs: (4) Chronic kidney disease, stage 3a: (5) BPH (benign prostatic hyperplasia): (6) Hypothyroidism: (7) Nonsustained ventricular tachycardia: 83 yo male with history of dilated NICM, EF < 20% Admitted on May 16, 2017 Hypotensive Hypotension likely because of dehydration, acute on chronic kidney failure, other differential diagnosis for hypotension is cardiac, which is possible because patient has significant decreased LVEF, an d hx of , NICM, However patient has no acute IL for now Possible decompensated CHF exacerbation, Possible Cardiorenal syndrome is in the differential diagnosis,With an elevated BNP at 20,000 and elevated troponin, and worsening kidney function extensive cardiac history, NICM with severely depressed EF < 20%, 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 Hameed from cardiology. Evaluation for cardiomyopathy, PA catheter. Continue dobutamine drip, gentle IV fluid, Closely monitor electrolytes and optimize as needed A. fib on Coumadin, hypertherapeutic INR at 3.2 today Mild elevated troponin at 0.08 to 0.05, Negative troponin EKG because of acute on chronic kidney failure, Atrial fibrillation, patient with PFO - s/p ablation, pacer in place. Patient anticoagulated with Coumadin, Continue holding metoprolol, because of hypotensive, abnormal LFTs, Tbili=3.3, AST=60, OV=501 Likely from CHF exacerbation liver congestion, LFT have been abnormal in the past. RUQ US obtained which reveals cirrhotic morphology of the liver with ascites. Mild gallbladder wall thickening without cholelithiasis and hyperechoic lesion of right hepatic lobe. 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, hepatic congestion from right heart failure Continue monitor liver function history of BPH with severe urinary retention as well as hematuria Upon admission , Continue [employer] Work Program Director and cardiology on the case, for the care GI DVT px is covered Subjective Was having nausea this morning, help with Zofran, Blood pressure was low, dobutamine drip was started This morning, feeling generally better, Review of Systems Constitutional: Positive weakness, or fatigue Respiratory: no cough, sputum, wheezing, Cardiac: No chest pain, No orthopnea, Abdomen: No pain, No nausea, No vomiting, No diarrhea, Musculoskeletal: No joint pain, No muscle pain, : No dysuria, No urinary frequency, No incontinence, No hematuria Neurologic: No paralysis, No weakness, No numbness/tingling, Psychiatric: No depression symptoms, No anhedonism, No anxiety, No insomnia, No substance abuse Heme: No abnormal bleeding/bruising, No clotting problems, Skin: No rash, No itch, No new/changing skin lesions, No color change, No bleeding Constitutional: + body aches, + fatigue, + malaise, + weakness, + anorexia and + insomnia Eyes: + blind spots Ear, Nose, Mouth, Throat: + sore throat Respiratory: + dyspnea; no cough, no chest congestion, no sputum production and no wheezing Cardiovascular: + orthopnea, + lightheadedness and + edema; no chest pain, no chest pain with activity, no palpitations and no syncope Gastrointestinal: + bloating, + nausea and + vomiting; no abdominal pain, no constipation and no melena Physical Exam 2 Vital Signs (Past 24 Hours): Last Vital Signs Temp 36.5 C 05/17/18 11: Pulse 73 05/17/18 11: Resp 14 05/17/18 11: BP 94/60 L 05/17/18 11: Pulse Ox 94 05/17/18 11:01 Physical Exam: General Appearance: Looks tired and fatigued,WD/WN, no apparent distress, Eyes: normal inspection, PERRL, EOMI, sclerae normal ENT: normal ENT inspection, hearing grossly normal, pharynx normal Neck: supple, no adenopathy, thyroid normal, no JVD, no carotid bruits, trachea midline Respiratory/Chest: chest non-tender, normal breath sounds, no respiratory distress, no accessory muscle use, breath sounds, rales, wheezing Cardiovascular: s1, s2, regular rate, rhythm, no JVD, no murmur Abdomen: normal bowel sounds, non tender, soft, no organomegaly, Extremities: normal range of motion, non-tender, normal inspection, Trace pedal edema, no calf tenderness, normal capillary refill, pelvis stable, joint has no limited range of motion, capillary refill is normal, no cyanosis clubbing Neurologic/Psychiatric: animal rehabilitator II-XII nml as tested, no motor/sensory deficits, alert, normal mood/affect, oriented x 3 Skin: normal color, warm/dry, no rash Lymphatic: no adenopathy Results & Data Laboratory Results Laboratory Results - last 24 hr 05/16/18 05/16/18 05/16/18 13:32 13:32 13:32 WBC 8.77 RBC 3.82 L Hgb 11.9 L POC Hgb Hct 33.3 L POC Hct MCV 87.2 MCH 31.2 MCHC 35.7 RDW Std Deviation 54.1 H RDW Coeff of Thor 16.8 H Plt Count 93 L MPV 11.0 H Immature Gran % (Auto) 0.5 Neut % (Auto) 76.7 Lymph % (Auto) 11.3 Fannin % (Auto) 10.3 Eos % (Auto) 1.1 Baso % (Auto) 0.1 Immature Gran # (Auto) 0.04 H Neut # (Auto) 6.73 H Lymph # (Auto) 0.99 L Fannin # (Auto) 0.90 H Eos # (Auto) 0.10 Baso # (Auto) 0.01 Platelet Estimate Decreased Ovalocytes Echinocytes 1+ PT 26.5 H INR 2.8 H APTT 41.4 H PTT Ratio 1.6 POC Sodium Sodium 136 POC Potassium Potassium 3.9 POC Chloride Chloride 103 Carbon Dioxide 22 POC Total CO2 Anion Gap 10.0 POC Anion Gap POC BUN BUN 62 H Creatinine 2.83 H POC Creatinine Est Cr Clr Drug Dosing 21.7 Est GFR ( Amer) 22.8 Est GFR (Non-Af Amer) 19.7 BUN/Creatinine Ratio 22.0 H Glucose 77 POC Glucose POC Glucose (other) POC Lactic Acid Remberto Lactate Calcium 8.7 POC Ioniz Calcium Rosalia Phosphorus Magnesium Total Bilirubin 3.3 H Direct Bilirubin AST 60 H ALT 45 Alkaline Phosphatase 137 H POC Troponin I Troponin I NT-Pro-B Natriuret Pep Total Protein 6.8 Albumin 2.9 L Globulin 3.9 Albumin/Globulin Ratio 0.8 L Prealbumin TSH Free T4 Random Cortisol Urine Color Urine Appearance Urine pH Ur Specific [place] Urine Protein Urine Glucose (UA) Urine Ketones Urine Blood Urine Nitrite Urine Bilirubin Urine Urobilinogen Ur Leukocyte Esterase Urine RBC Urine WBC Ur Epithelial Cells Ur Renal Epithelial Cell Urine Bacteria Hyaline Casts Ur Random Sodium Nasal Screen MRSA (PCR) 05/16/18 05/16/18 05/16/18 13:32 13:36 13:39 WBC RBC Hgb POC Hgb 12.6 L Hct POC Hct 37 L MCV MCH MCHC RDW Std Deviation RDW Coeff of Thor Plt Count MPV Immature Gran % (Auto) Neut % (Auto) Lymph % (Auto) Fannin % (Auto) Eos % (Auto) Baso % (Auto) Immature Gran # (Auto) Neut # (Auto) Lymph # (Auto) Fannin # (Auto) Eos # (Auto) Baso # (Auto) Platelet Estimate Ovalocytes Echinocytes PT INR APTT PTT Ratio POC Sodium 138 Sodium POC Potassium 3.8 Potassium POC Chloride 101 Chloride Carbon Dioxide POC Total CO2 22 L Anion Gap POC Anion Gap 20.0 POC BUN 52 H BUN Creatinine POC Creatinine 2.9 H Est Cr Clr Drug Dosing Est GFR ( Amer) Est GFR (Non-Af Amer) BUN/Creatinine Ratio Glucose POC Glucose POC Glucose (other) 79 POC Lactic Acid Remberto Lactate 1.5 Calcium POC Ioniz Calcium Rosalia 1.10 L Phosphorus Magnesium Total Bilirubin Direct Bilirubin AST ALT Alkaline Phosphatase POC Troponin I 0.08 H Troponin I NT-Pro-B Natriuret Pep Total Protein Albumin Globulin Albumin/Globulin Ratio Prealbumin TSH Free T4 Random Cortisol Urine Color Urine Appearance Urine pH Ur Specific [place] Urine Protein Urine Glucose (UA) Urine Ketones Urine Blood Urine Nitrite Urine Bilirubin Urine Urobilinogen Ur Leukocyte Esterase Urine RBC Urine WBC Ur Epithelial Cells Ur Renal Epithelial Cell Urine Bacteria Hyaline Casts Ur Random Sodium Nasal Screen MRSA (PCR) 05/16/18 05/16/18 05/16/18 13:41 13:42 16:48 WBC RBC Hgb POC Hgb Hct POC Hct MCV MCH MCHC RDW Std Deviation RDW Coeff of Thor Plt Count MPV Immature Gran % (Auto) Neut % (Auto) Lymph % (Auto) Fannin % (Auto) Eos % (Auto) Baso % (Auto) Immature Gran # (Auto) Neut # (Auto) Lymph # (Auto) Fannin # (Auto) Eos # (Auto) Baso # (Auto) Platelet Estimate Ovalocytes Echinocytes PT INR APTT PTT Ratio POC Sodium Sodium POC Potassium Potassium POC Chloride Chloride Carbon Dioxide POC Total CO2 Anion Gap POC Anion Gap POC BUN BUN Creatinine POC Creatinine Est Cr Clr Drug Dosing Est GFR ( Amer) Est GFR (Non-Af Amer) BUN/Creatinine Ratio Glucose POC Glucose POC Glucose (other) POC Lactic Acid Remberto 1.35 Lactate Calcium POC Ioniz Calcium Rosalia Phosphorus Magnesium Total Bilirubin Direct Bilirubin AST ALT Alkaline Phosphatase POC Troponin I Troponin I NT-Pro-B Natriuret Pep Total Protein Albumin Globulin Albumin/Globulin Ratio Prealbumin TSH Free T4 Random Cortisol Urine Color [place] Urine Appearance Clear Urine pH 5.0 Ur Specific [place] 1.010 Urine Protein 1+ H Urine Glucose (UA) Negative Urine Ketones Trace H Urine Blood 3+ H Urine Nitrite Negative Urine Bilirubin 1+ H Urine Urobilinogen Negative Ur Leukocyte Esterase Negative Urine RBC >30 H Urine WBC 10-30 H Ur Epithelial Cells 20-30 H Ur Renal Epithelial Cell 5-10 H Urine Bacteria 3+ H Hyaline Casts 0-5 Ur Random Sodium Nasal Screen MRSA (PCR) Negative 05/16/18 05/16/18 05/16/18 17:13 17:13 17:16 WBC RBC Hgb POC Hgb Hct POC Hct MCV MCH MCHC RDW Std Deviation RDW Coeff of Thor Plt Count MPV Immature Gran % (Auto) Neut % (Auto) Lymph % (Auto) Fannin % (Auto) Eos % (Auto) Baso % (Auto) Immature Gran # (Auto) Neut # (Auto) Lymph # (Auto) Fannin # (Auto) Eos # (Auto) Baso # (Auto) Platelet Estimate Ovalocytes Echinocytes PT INR APTT PTT Ratio POC Sodium Sodium POC Potassium Potassium POC Chloride Chloride Carbon Dioxide POC Total CO2 Anion Gap POC Anion Gap POC BUN BUN Creatinine POC Creatinine Est Cr Clr Drug Dosing Est GFR ( Amer) Est GFR (Non-Af Amer) BUN/Creatinine Ratio Glucose POC Glucose 78 POC Glucose (other) POC Lactic Acid Remberto Lactate Calcium POC Ioniz Calcium Rosalia Phosphorus 3.7 Magnesium 2.2 Total Bilirubin Direct Bilirubin AST ALT Alkaline Phosphatase POC Troponin I Troponin I 0.082 H* NT-Pro-B Natriuret Pep 59468 H Total Protein Albumin Globulin Albumin/Globulin Ratio Prealbumin 5.4 L TSH 10.000 H Free T4 1.11 Random Cortisol 15.69 Urine Color Urine Appearance Urine pH Ur Specific [place] Urine Protein Urine Glucose (UA) Urine Ketones Urine Blood Urine Nitrite Urine Bilirubin Urine Urobilinogen Ur Leukocyte Esterase Urine RBC Urine WBC Ur Epithelial Cells Ur Renal Epithelial Cell Urine Bacteria Hyaline Casts Ur Random Sodium Nasal Screen MRSA (PCR) 05/16/18 05/16/18 05/17/18 18:00 20:26 00:39 WBC RBC Hgb POC Hgb Hct POC Hct MCV MCH MCHC RDW Std Deviation RDW Coeff of Thor Plt Count MPV Immature Gran % (Auto) Neut % (Auto) Lymph % (Auto) Fannin % (Auto) Eos % (Auto) Baso % (Auto) Immature Gran # (Auto) Neut # (Auto) Lymph # (Auto) Fannin # (Auto) Eos # (Auto) Baso # (Auto) Platelet Estimate Ovalocytes Echinocytes PT INR APTT PTT Ratio POC Sodium Sodium POC Potassium Potassium POC Chloride Chloride Carbon Dioxide POC Total CO2 Anion Gap POC Anion Gap POC BUN BUN Creatinine POC Creatinine Est Cr Clr Drug Dosing Est GFR ( Amer) Est GFR (Non-Af Amer) BUN/Creatinine Ratio Glucose POC Glucose 85 POC Glucose (other) POC Lactic Acid Remberto Lactate Calcium POC Ioniz Calcium Rosalia Phosphorus Magnesium Total Bilirubin Direct Bilirubin AST ALT Alkaline Phosphatase POC Troponin I Troponin I 0.057 H* NT-Pro-B Natriuret Pep Total Protein Albumin Globulin Albumin/Globulin Ratio Prealbumin TSH Free T4 Random Cortisol Urine Color Urine Appearance Urine pH Ur Specific [place] Urine Protein Urine Glucose (UA) Urine Ketones Urine Blood Urine Nitrite Urine Bilirubin Urine Urobilinogen Ur Leukocyte Esterase Urine RBC Urine WBC Ur Epithelial Cells Ur Renal Epithelial Cell Urine Bacteria Hyaline Casts Ur Random Sodium 16 Nasal Screen MRSA (PCR) 05/17/18 05/17/18 05/17/18 04:24 04:24 04:24 WBC 5.28 RBC 3.60 L Hgb 11.3 L POC Hgb Hct 31.5 L POC Hct MCV 87.5 MCH 31.4 MCHC 35.9 RDW Std Deviation 53.9 H RDW Coeff of Thor 16.9 H Plt Count 78 L MPV 10.8 H Immature Gran % (Auto) 0.4 Neut % (Auto) 65.7 Lymph % (Auto) 17.2 Fannin % (Auto) 13.8 Eos % (Auto) 2.3 Baso % (Auto) 0.6 Immature Gran # (Auto) 0.02 Neut # (Auto) 3.47 Lymph # (Auto) 0.91 L Fannin # (Auto) 0.73 H Eos # (Auto) 0.12 Baso # (Auto) 0.03 Platelet Estimate Ovalocytes 1+ Echinocytes 1+ PT 30.1 H INR 3.2 H APTT PTT Ratio POC Sodium Sodium 137 POC Potassium Potassium 3.8 POC Chloride Chloride 106 Carbon Dioxide 24 POC Total CO2 Anion Gap 7.0 POC Anion Gap POC BUN BUN 60 H Creatinine 2.35 H D POC Creatinine Est Cr Clr Drug Dosing 26.1 Est GFR ( Amer) 28.6 Est GFR (Non-Af Amer) 24.7 BUN/Creatinine Ratio 25.6 H Glucose 86 POC Glucose POC Glucose (other) POC Lactic Acid Remberto Lactate Calcium 7.8 L POC Ioniz Calcium Rosalia Phosphorus Magnesium Total Bilirubin 3.0 H Direct Bilirubin 2.0 H AST 41 H ALT 37 Alkaline Phosphatase 131 H POC Troponin I Troponin I NT-Pro-B Natriuret Pep Total Protein 6.3 L Albumin 2.5 L Globulin Albumin/Globulin Ratio Prealbumin TSH Free T4 Random Cortisol Urine Color Urine Appearance Urine pH Ur Specific [place] Urine Protein Urine Glucose (UA) Urine Ketones Urine Blood Urine Nitrite Urine Bilirubin Urine Urobilinogen Ur Leukocyte Esterase Urine RBC Urine WBC Ur Epithelial Cells Ur Renal Epithelial Cell Urine Bacteria Hyaline Casts Ur Random Sodium Nasal Screen MRSA (PCR) 05/17/18 05/17/18 08:49 10:54 WBC RBC Hgb POC Hgb Hct POC Hct MCV MCH MCHC RDW Std Deviation RDW Coeff of Thor Plt Count MPV Immature Gran % (Auto) Neut % (Auto) Lymph % (Auto) Fannin % (Auto) Eos % (Auto) Baso % (Auto) Immature Gran # (Auto) Neut # (Auto) Lymph # (Auto) Fannin # (Auto) Eos # (Auto) Baso # (Auto) Platelet Estimate Ovalocytes Echinocytes PT INR APTT PTT Ratio POC Sodium Sodium POC Potassium Potassium POC Chloride Chloride Carbon Dioxide POC Total CO2 Anion Gap POC Anion Gap POC BUN BUN Creatinine POC Creatinine Est Cr Clr Drug Dosing Est GFR ( Amer) Est GFR (Non-Af Amer) BUN/Creatinine Ratio Glucose POC Glucose 90 POC Glucose (other) POC Lactic Acid Remberto Lactate Calcium POC Ioniz Calcium Rosalia Phosphorus Magnesium Total Bilirubin Direct Bilirubin AST ALT Alkaline Phosphatase POC Troponin I Troponin I 0.053 H* NT-Pro-B Natriuret Pep Total Protein Albumin Globulin Albumin/Globulin Ratio Prealbumin TSH Free T4 Random Cortisol Urine Color Urine Appearance Urine pH Ur Specific [place] Urine Protein Urine Glucose (UA) Urine Ketones Urine Blood Urine Nitrite Urine Bilirubin Urine Urobilinogen Ur Leukocyte Esterase Urine RBC Urine WBC Ur Epithelial Cells Ur Renal Epithelial Cell Urine Bacteria Hyaline Casts Ur Random Sodium Nasal Screen MRSA (PCR) _ (1) Hypothyroidism Hypothyroidism type: unspecified Qualified Code(s): E03.9 - Hypothyroidism, unspecified
--- NOTE | 2018-05-17 13:52 | Cardiology Consultation ---
Date of Consultation May 17, 2018 Assessment & Plan (1) NICM (nonischemic cardiomyopathy): He is known to have severely reduced LV systolic function. He likely has an element of restrictive diastolic filling as well. Surprisingly, he does not appear to have significant pulmonary vascular congestion. Some of the renal dysfunction may be related to mildly reduced intravascular volume. He likely also has an element of cardiorenal syndrome. He has been started on a dobutamine infusion and some mild volume administration. Clearly he is hypervolemic overall. He has evidence of tissue edema and ascites. He has low albumin. He is also hypothyroid. He has gained approximately 12 lb by his report. I think we will need to be cautious regarding volume administration. I would agree with continue dobutamine infusion in order to improve renal perfusion and overall you euvolemia. Hopefully at some point we can affect an element of diuresis as well. I did discuss the option of right heart catheterization with the patient. This may help guide the need for diuresis. He undoubtedly has an element of high filling pressures which is likely compensatory given his known cardiomyopathy. Present on Admission?: Yes (2) Hypotension: Generally he has relatively low blood pressures. He has been slightly more hypotensive he currently. This may be related to an element of volume depletion intravascularly as well as his known cardiomyopathy. His antihypertensives have been discontinued. He is receiving some volume. He may require some dopamine in addition to dobutamine. Present on Admission?: Yes (3) Atrial fibrillation: Permanent. He has been on warfarin as an anticoagulant. He is supratherapeutic at the time of admission which may be related to his poor dietary intake recently with continued warfarin administration. Present on Admission?: Yes History of Present Illness Reason for Consultation: Hypotension, congestive heart failure Requesting Physician: Aurea Attending Physician: Murray Watts MD, PhD, [facility] History of Present Illness Patient is an 83-year-old gentleman with a known history of coronary artery disease and severe ischemic cardiomyopathy who was admitted to [facility] after 5 days of anorexia, vomiting and mild dizziness. The patient was discovered to be mildly hypotensive and suffering from some abdominal discomfort. He did not report any objective fevers or chills. He had some associated weakness and reduced exercise tolerance. Leading up to his admission the patient did report 2 episodes of paroxysmal nocturnal dyspnea. Both of these resolved with sitting in an upright position. He also noticed significant weight gain over the past month. According to his home scales he reports scanning 12 lb in that period of time. He had 1 episode of dizziness while descending some stairs at home. This was not presyncope and did not result in syncope. He has not noticed any palpitations. He does occasionally have symptoms of chest discomfort that are associated with exertion. He has not report similar symptoms at rest. He has no pleuritic chest pain. Currently he claims to be feeling weak. His abdominal discomfort has resolved entirely. He denies significant breathing trouble currently. He is not having symptoms of chest discomfort. His appetite has returned but he is somewhat cautious about eating. Allergies Allergy/AdvReac Type Severity Reaction Status Date / Time atorvastatin Allergy Unknown GI SYMPTOMS Verified 05/16/18 15:45 simvastatin Allergy Unknown GI SYMPTOMS Verified 05/16/18 15:45 Home Medications Home Medications Medication Instructions Recorded Confirmed Type carvedilol 25 mg PO BID 02/18/18 05/16/18 History warfarin [Jantoven] 2.5 mg PO QPM 03/06/18 05/16/18 History lisinopril 5 mg PO QAM #15 tab 03/10/18 05/16/18 Rx furosemide 40 mg PO DAILY 05/16/18 05/16/18 History tamsulosin 0.4 mg PO BID 05/16/18 05/16/18 History Patient History Medical History Lower extremity edema Pacemaker (Acute) BPH (benign prostatic hyperplasia) CKD (chronic kidney disease) Hypertension CHF (congestive heart failure) (Chronic) 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 Acetabular fracture UTI (urinary tract infection) Urinary retention Urinary tract infection Surgical History Previous back surgery S/P knee surgery Status post placement of cardiac pacemaker (Resolved) Biventricular ICD Family History Other Cancer Heart attack Heart disease No pertinent family history Social History marital status: Current Living Situation: Spouse Other Information That Helps Us Care for You: No Feels Safe at Home: Yes Safety Concerns: Feels Safe At This Time Smoking Status: Never smoker Hx Alcohol Use: No Hx Substance Use: No Beliefs That Will Affect Care: None Communication Ability: Effective Review of Systems Complete. Pertinent positives noted in history present illness Physical Exam 2 Vital Signs (Past 24 Hours): Last Vital Signs Temp 36.5 C 05/17/18 11:01 Pulse 73 05/17/18 11:01 Resp 14 05/17/18 11:01 BP 94/60 L 05/17/18 11:01 Pulse Ox 94 05/17/18 11:01 Physical Exam: The patient is alert and oriented. Mood and affect appeared normal. He answered all questions appropriately. HEENT: Pupils are equal and reactive to light and accommodation. Extraocular movements are intact. The sclerae are anicteric. Neuro: Cranial nerves intact Neck: Patient's neck is supple. He has palpable carotid pulses bilaterally without bruits on auscultation. The thyroid is not enlarged. Lungs: Clear to auscultation bilaterally. He has good air movement without use of accessory muscles. No rales wheezes or rhonchi. Cardiac: Heart demonstrates a regular rate and rhythm. Normal S1 and S2. Soft holosystolic murmur. Pulses: The patient has palpable radial pulses bilaterally that are equal in intensity Extremities: There was no evidence of hypoperfusion. There is no cyanosis or clubbing. Moderate bilateral lower extremity edema to the mid calf. Skin: I did not appreciate any rashes on examination today. Results & Data Laboratory Results Abnormal Lab Results 05/16/18 05/16/18 05/16/18 13:32 13:32 13:32 WBC 8.77 RBC 3.82 L Hgb 11.9 L POC Hgb Hct 33.3 L POC Hct MCV 87.2 MCH 31.2 MCHC 35.7 RDW Std Deviation 54.1 H RDW Coeff of Thor 16.8 H Plt Count 93 L MPV 11.0 H Immature Gran % (Auto) 0.5 Neut % (Auto) 76.7 Lymph % (Auto) 11.3 Waldo % (Auto) 10.3 Eos % (Auto) 1.1 Baso % (Auto) 0.1 Immature Gran # (Auto) 0.04 H Neut # (Auto) 6.73 H Lymph # (Auto) 0.99 L Waldo # (Auto) 0.90 H Eos # (Auto) 0.10 Baso # (Auto) 0.01 Platelet Estimate Decreased Ovalocytes Echinocytes 1+ PT 26.5 H INR 2.8 H APTT 41.4 H PTT Ratio 1.6 POC Sodium Sodium 136 POC Potassium Potassium 3.9 POC Chloride Chloride 103 Carbon Dioxide 22 POC Total CO2 Anion Gap 10.0 POC Anion Gap POC BUN BUN 62 H Creatinine 2.83 H POC Creatinine Est Cr Clr Drug Dosing 21.7 Est GFR ( Amer) 22.8 Est GFR (Non-Af Amer) 19.7 BUN/Creatinine Ratio 22.0 H Glucose 77 POC Glucose POC Glucose (other) POC Lactic Acid Remberto Lactate Calcium 8.7 POC Ioniz Calcium Rosalia Phosphorus Magnesium Total Bilirubin 3.3 H Direct Bilirubin AST 60 H ALT 45 Alkaline Phosphatase 137 H POC Troponin I Troponin I NT-Pro-B Natriuret Pep Total Protein 6.8 Albumin 2.9 L Globulin 3.9 Albumin/Globulin Ratio 0.8 L Prealbumin TSH Free T4 Random Cortisol Urine Color Urine Appearance Urine pH Ur Specific [place] Urine Protein Urine Glucose (UA) Urine Ketones Urine Blood Urine Nitrite Urine Bilirubin Urine Urobilinogen Ur Leukocyte Esterase Urine RBC Urine WBC Ur Epithelial Cells Ur Renal Epithelial Cell Urine Bacteria Hyaline Casts Ur Random Sodium Nasal Screen MRSA (PCR) 05/16/18 05/16/18 05/16/18 13:32 13:36 13:39 WBC RBC Hgb POC Hgb 12.6 L Hct POC Hct 37 L MCV MCH MCHC RDW Std Deviation RDW Coeff of Thor Plt Count MPV Immature Gran % (Auto) Neut % (Auto) Lymph % (Auto) [place] % (Auto) Eos % (Auto) Baso % (Auto) Immature Gran # (Auto) Neut # (Auto) Lymph # (Auto) Waldo # (Auto) Eos # (Auto) Baso # (Auto) Platelet Estimate Ovalocytes Echinocytes PT INR APTT PTT Ratio POC Sodium 138 Sodium POC Potassium 3.8 Potassium POC Chloride 101 Chloride Carbon Dioxide POC Total CO2 22 L Anion Gap POC Anion Gap 20.0 POC BUN 52 H BUN Creatinine POC Creatinine 2.9 H Est Cr Clr Drug Dosing Est GFR ( Amer) Est GFR (Non-Af Amer) BUN/Creatinine Ratio Glucose POC Glucose POC Glucose (other) 79 POC Lactic Acid Remberto Lactate 1.5 Calcium POC Ioniz Calcium Rosalia 1.10 L Phosphorus Magnesium Total Bilirubin Direct Bilirubin AST ALT Alkaline Phosphatase POC Troponin I 0.08 H Troponin I NT-Pro-B Natriuret Pep Total Protein Albumin Globulin Albumin/Globulin Ratio Prealbumin TSH Free T4 Random Cortisol Urine Color Urine Appearance Urine pH Ur Specific [place] Urine Protein Urine Glucose (UA) Urine Ketones Urine Blood Urine Nitrite Urine Bilirubin Urine Urobilinogen Ur Leukocyte Esterase Urine RBC Urine WBC Ur Epithelial Cells Ur Renal Epithelial Cell Urine Bacteria Hyaline Casts Ur Random Sodium Nasal Screen MRSA (PCR) 05/16/18 05/16/18 05/16/18 13:41 13:42 16:48 WBC RBC Hgb POC Hgb Hct POC Hct MCV MCH MCHC RDW Std Deviation RDW Coeff of Thor Plt Count MPV Immature Gran % (Auto) Neut % (Auto) Lymph % (Auto) [place] % (Auto) Eos % (Auto) Baso % (Auto) Immature Gran # (Auto) Neut # (Auto) Lymph # (Auto) Waldo # (Auto) Eos # (Auto) Baso # (Auto) Platelet Estimate Ovalocytes Echinocytes PT INR APTT PTT Ratio POC Sodium Sodium POC Potassium Potassium POC Chloride Chloride Carbon Dioxide POC Total CO2 Anion Gap POC Anion Gap POC BUN BUN Creatinine POC Creatinine Est Cr Clr Drug Dosing Est GFR ( Amer) Est GFR (Non-Af Amer) BUN/Creatinine Ratio Glucose POC Glucose POC Glucose (other) POC Lactic Acid Remberto 1.35 Lactate Calcium POC Ioniz Calcium [place] Phosphorus Magnesium Total Bilirubin Direct Bilirubin AST ALT Alkaline Phosphatase POC Troponin I Troponin I NT-Pro-B Natriuret Pep Total Protein Albumin Globulin Albumin/Globulin Ratio Prealbumin TSH Free T4 Random Cortisol Urine Color [place] Urine Appearance Clear Urine pH 5.0 Ur Specific [place] 1.010 Urine Protein 1+ H Urine Glucose (UA) Negative Urine Ketones Trace H Urine Blood 3+ H Urine Nitrite Negative Urine Bilirubin 1+ H Urine Urobilinogen Negative Ur Leukocyte Esterase Negative Urine RBC >30 H Urine WBC 10-30 H Ur Epithelial Cells 20-30 H Ur Renal Epithelial Cell 5-10 H Urine Bacteria 3+ H Hyaline Casts 0-5 Ur Random Sodium Nasal Screen MRSA (PCR) Negative 05/16/18 05/16/18 05/16/18 17:13 17:13 17:16 WBC RBC Hgb POC Hgb Hct POC Hct MCV MCH MCHC RDW Std Deviation RDW Coeff of Thor Plt Count MPV Immature Gran % (Auto) Neut % (Auto) Lymph % (Auto) Waldo % (Auto) Eos % (Auto) Baso % (Auto) Immature Gran # (Auto) Neut # (Auto) Lymph # (Auto) [place]do # (Auto) Eos # (Auto) Baso # (Auto) Platelet Estimate Ovalocytes Echinocytes PT INR APTT PTT Ratio POC Sodium Sodium POC Potassium Potassium POC Chloride Chloride Carbon Dioxide POC Total CO2 Anion Gap POC Anion Gap POC BUN BUN Creatinine POC Creatinine Est Cr Clr Drug Dosing Est GFR ( Amer) Est GFR (Non-Af Amer) BUN/Creatinine Ratio Glucose POC Glucose 78 POC Glucose (other) POC Lactic Acid Remberto Lactate Calcium POC Ioniz Calcium Rosalia Phosphorus 3.7 Magnesium 2.2 Total Bilirubin Direct Bilirubin AST ALT Alkaline Phosphatase POC Troponin I Troponin I 0.082 H* NT-Pro-B Natriuret Pep 21636 H Total Protein Albumin Globulin Albumin/Globulin Ratio Prealbumin 5.4 L TSH 10.000 H Free T4 1.11 Random Cortisol 15.69 Urine Color Urine Appearance Urine pH Ur Specific [place] Urine Protein Urine Glucose (UA) Urine Ketones Urine Blood Urine Nitrite Urine Bilirubin Urine Urobilinogen Ur Leukocyte Esterase Urine RBC Urine WBC Ur Epithelial Cells Ur Renal Epithelial Cell Urine Bacteria Hyaline Casts Ur Random Sodium Nasal Screen MRSA (PCR) 05/16/18 05/16/18 05/17/18 18:00 20:26 00:39 WBC RBC Hgb POC Hgb Hct POC Hct MCV MCH MCHC RDW Std Deviation RDW Coeff of Thor Plt Count MPV Immature Gran % (Auto) Neut % (Auto) Lymph % (Auto) [place] % (Auto) Eos % (Auto) Baso % (Auto) Immature Gran # (Auto) Neut # (Auto) Lymph # (Auto) [place]do # (Auto) Eos # (Auto) Baso # (Auto) Platelet Estimate Ovalocytes Echinocytes PT INR APTT PTT Ratio POC Sodium Sodium POC Potassium Potassium POC Chloride Chloride Carbon Dioxide POC Total CO2 Anion Gap POC Anion Gap POC BUN BUN Creatinine POC Creatinine Est Cr Clr Drug Dosing Est GFR ( Amer) Est GFR (Non-Af Amer) BUN/Creatinine Ratio Glucose POC Glucose 85 POC Glucose (other) POC Lactic Acid Remberto Lactate Calcium POC Ioniz Calcium [place] Phosphorus Magnesium Total Bilirubin Direct Bilirubin AST ALT Alkaline Phosphatase POC Troponin I Troponin I 0.057 H* NT-Pro-B Natriuret Pep Total Protein Albumin Globulin Albumin/Globulin Ratio Prealbumin TSH Free T4 Random Cortisol Urine Color Urine Appearance Urine pH Ur Specific [place] Urine Protein Urine Glucose (UA) Urine Ketones Urine Blood Urine Nitrite Urine Bilirubin Urine Urobilinogen Ur Leukocyte Esterase Urine RBC Urine WBC Ur Epithelial Cells Ur Renal Epithelial Cell Urine Bacteria Hyaline Casts Ur Random Sodium 16 Nasal Screen MRSA (PCR) 05/17/18 05/17/18 05/17/18 04:24 04:24 04:24 WBC 5.28 RBC 3.60 L Hgb 11.3 L POC Hgb Hct 31.5 L POC Hct MCV 87.5 MCH 31.4 MCHC 35.9 RDW Std Deviation 53.9 H RDW Coeff of Thor 16.9 H Plt Count 78 L MPV 10.8 H Immature Gran % (Auto) 0.4 Neut % (Auto) 65.7 Lymph % (Auto) 17.2 Waldo % (Auto) 13.8 Eos % (Auto) 2.3 Baso % (Auto) 0.6 Immature Gran # (Auto) 0.02 Neut # (Auto) 3.47 Lymph # (Auto) 0.91 L [place]do # (Auto) 0.73 H Eos # (Auto) 0.12 Baso # (Auto) 0.03 Platelet Estimate Ovalocytes 1+ Echinocytes 1+ PT 30.1 H INR 3.2 H APTT PTT Ratio POC Sodium Sodium 137 POC Potassium Potassium 3.8 POC Chloride Chloride 106 Carbon Dioxide 24 POC Total CO2 Anion Gap 7.0 POC Anion Gap POC BUN BUN 60 H Creatinine 2.35 H D POC Creatinine Est Cr Clr Drug Dosing 26.1 Est GFR ( Amer) 28.6 Est GFR (Non-Af Amer) 24.7 BUN/Creatinine Ratio 25.6 H Glucose 86 POC Glucose POC Glucose (other) POC Lactic Acid Remberto Lactate Calcium 7.8 L POC Ioniz Calcium Ros[place] Phosphorus Magnesium Total Bilirubin 3.0 H Direct Bilirubin 2.0 H AST 41 H ALT 37 Alkaline Phosphatase 131 H POC Troponin I Troponin I NT-Pro-B Natriuret Pep Total Protein 6.3 L Albumin 2.5 L Globulin Albumin/Globulin Ratio Prealbumin TSH Free T4 Random Cortisol Urine Color Urine Appearance Urine pH Ur Specific [place] Urine Protein Urine Glucose (UA) Urine Ketones Urine Blood Urine Nitrite Urine Bilirubin Urine Urobilinogen Ur Leukocyte Esterase Urine RBC Urine WBC Ur Epithelial Cells Ur Renal Epithelial Cell Urine Bacteria Hyaline Casts Ur Random Sodium Nasal Screen MRSA (PCR) 05/17/18 05/17/18 08:49 10:54 WBC RBC Hgb POC Hgb Hct POC Hct MCV MCH MCHC RDW Std Deviation RDW Coeff of Thor Plt Count MPV Immature Gran % (Auto) Neut % (Auto) Lymph % (Auto) [place] % (Auto) Eos % (Auto) Baso % (Auto) Immature Gran # (Auto) Neut # (Auto) Lymph # (Auto) [place] # (Auto) Eos # (Auto) Baso # (Auto) Platelet Estimate Ovalocytes Echinocytes PT INR APTT PTT Ratio POC Sodium Sodium POC Potassium Potassium POC Chloride Chloride Carbon Dioxide POC Total CO2 Anion Gap POC Anion Gap POC BUN BUN Creatinine POC Creatinine Est Cr Clr Drug Dosing Est GFR ( Amer) Est GFR (Non-Af Amer) BUN/Creatinine Ratio Glucose POC Glucose 90 POC Glucose (other) POC Lactic Acid Remberto Lactate Calcium POC Ioniz Calcium [place] Phosphorus Magnesium Total Bilirubin Direct Bilirubin AST ALT Alkaline Phosphatase POC Troponin I Troponin I 0.053 H* NT-Pro-B Natriuret Pep Total Protein Albumin Globulin Albumin/Globulin Ratio Prealbumin TSH Free T4 Random Cortisol Urine Color Urine Appearance Urine pH Ur Specific [place] Urine Protein Urine Glucose (UA) Urine Ketones Urine Blood Urine Nitrite Urine Bilirubin Urine Urobilinogen Ur Leukocyte Esterase Urine RBC Urine WBC Ur Epithelial Cells Ur Renal Epithelial Cell Urine Bacteria Hyaline Casts Ur Random Sodium Nasal Screen MRSA (PCR) Diagnostic Findings Chest x-ray the time of admission revealed cardiomegaly without overt pulmonary edema echocardiogram performed today reveals severely reduced LV systolic function with 4 chamber dilation. Restrictive diastolic filling I performed a complete device interrogation of his biventricular ICD. No significant arrhythmia events. Normal thresholds and function of both leads. I increased his pacing rate to 80 beats per minute. ECG Additional Comments: Atrial fibrillation with 100% ventricular pacing
[2018-05-17] MEDS ORDERED: WARFARIN SOD 2.5 MG TAB PO SCH (16:00)
[2018-05-18] MEDS: SODIUM CHLORIDE 0.9% 1000ML 1,000 ML IV SCH (03:43)
[2018-05-18 04:53] LABS: Hematocrit (blood only) 32.2 % (42-52); Hemoglobin 11.4 g/dL (14.0-18.0); Mean Corpuscular Hgb Conc 35.4 g/dL (32-36); Mean Corpuscular Volume 87.7 fL (80-100); RDW Coefficient of Variation 16.9 % (11.5-14.5); RDW Standard Deviation 54.3 fL (36.4-46.3); Red Blood Count 3.67 M/uL (4.7-6.1); White Blood Count 5.69 K/uL (4.8-10.8)
[2018-05-18 05:03] LABS: Mean Platelet Volume 10.4 fL (7.4-10.4); Platelet Count 92 K/uL (130-400)
[2018-05-18 05:06] LABS: Prothrombin Time 34.8 Seconds (9.0-12.0)
[2018-05-18 05:15] LABS: Basophils # (auto) 0.02 K/uL (0-0.2); Basophils % (auto) 0.4 %; Echinocytes 1+; Eosinophils # (auto) 0.08 K/uL (0-0.5); Eosinophils % (auto) 1.4 %; Immature Granulocytes % (auto) 1.8 %; Lymphocytes # (auto) 0.82 K/uL (1.2-3.4); Lymphocytes % (auto) 14.4 %; Monocytes # (auto) 0.92 K/uL (0.11-0.59); Monocytes % (auto) 16.2 %; Neutrophils # (auto) 3.75 K/uL (1.4-6.5); Neutrophils % (auto) 65.8 %; Ovalocytes 2+
[2018-05-18 05:25] LABS: Albumin Level 2.4 gm/dl (3.4-5.0); BUN Creatinine Ratio 30.2 (10-20); Bilirubin Direct 1.8 mg/dl (0-0.2); Calcium 7.8 mg/dl (8.5-10.1); Creatinine Clr Calc Pharmacy 39.1 ml/min; Est GFR (African American) 42.3; Est GFR (Non-African American) 36.5; Potassium 3.8 mmol/L (3.5-5.1)
[2018-05-18 05:28] LABS: Bilirubin,Total 2.9 mg/dl (0.2-1); Total Protein 5.9 gm/dl (6.4-8.2)
[2018-05-18 05:36] LABS: INR 3.7 (0.9-1.1)
[2018-05-18] MEDS: LEVOTHYROXINE SODIUM 75 MCG TABLET PO SCH (05:46)
[2018-05-18] MEDS: DOBUTamine / D5W 500 MG/250 ML BAG IV SCH ×3 (05:46→20:05)
[2018-05-18] MEDS ORDERED: SODIUM CHLORIDE 0.9% 1000ML 1,000 ML IV SCH (11:00)
--- NOTE | 2018-05-18 11:04 | Hospitalist Progress Note ---
Date of Service May 18, 2018 Assessment & Plan (1) Hypotension: (2) NICM (nonischemic cardiomyopathy): (3) Abnormal LFTs: (4) Chronic kidney disease, stage 3a: (5) BPH (benign prostatic hyperplasia): (6) Hypothyroidism: (7) Nonsustained ventricular tachycardia: 83 yo male with history of dilated NICM, EF < 20% Admitted on May 16, 2017 Hypotensive, relative to stable however remains severe sick Hypotension likely because of dehydration, acute on chronic kidney failure, other differential diagnosis for hypotension is cardiac, which is possible because patient has significant decreased LVEF, an d hx of NICM, However patient has no acute TN for now Possible decompensated acute on chronic CHF exacerbation, Possible Cardiorenal syndrome is in the differential diagnosis,With an elevated BNP at 20,000 and elevated troponin, and worsening kidney function extensive cardiac history, NICM with severely depressed EF < 20%, NSVT with BiV AICD in place, hx of Hypertension, Currently is hypotensive need pressor support, small pericardial effusion, no evidence of tamponade Discussed with 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 fib on Coumadin, hypertherapeutic INR at 3. 7 from 3.2, continue hold Coumadin Mild elevated troponin at 0.08 to 0.05, Negative troponin EKG because of acute on chronic kidney failure, Atrial fibrillation, patient with PFO - s/p ablation, pacer in place. Patient anticoagulated with Coumadin, Continue holding metoprolol, because of hypotensive, abnormal LFTs, Tbili=3.3, AST=60, BS=383 Likely from CHF exacerbation liver congestion, LFT have been abnormal in the past. RUQ US obtained which reveals cirrhotic morphology of the liver with ascites. Mild gallbladder wall thickening without cholelithiasis and hyperechoic lesion of right hepatic lobe. 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, hepatic congestion from right heart failure Continue monitor liver function, will repeat labs tomorrow history of BPH with severe urinary retention as well as hematuria Upon admission , Continue [place] Discussed with patient about her care plan, offered to talk to family members, patient declined GI DVT px is covered Subjective Blood pressure still low, dobutamine drip continue feeling generally tired, Review of Systems Constitutional: Positive weakness, or fatigue Respiratory: occassional cough, sputum, no wheezing, Cardiac: No chest pain, No orthopnea, Abdomen: No pain, No nausea, No vomiting, No diarrhea, Musculoskeletal: No joint pain, No muscle pain, : No dysuria, No urinary frequency, No incontinence, No hematuria Neurologic: No paralysis, No weakness, No numbness/tingling, Psychiatric: No depression symptoms, No anhedonism, No anxiety, No insomnia, No substance abuse Heme: No abnormal bleeding/bruising, No clotting problems, Skin: No rash, No itch, No new/changing skin lesions, No color change, No bleeding Physical Exam 2 Vital Signs (Past 24 Hours): Last Vital Signs Temp 36.6 C 05/18/18 08:00 Pulse 80 05/18/18 08:00 Resp 20 05/18/18 08:00 BP 96/51 L 05/18/18 08:00 Pulse Ox 91 05/18/18 08:00 Physical Exam: General Appearance: Looks tired and fatigued, flat, WD/WN, no apparent distress, Eyes: normal inspection, PERRL, EOMI, sclerae normal ENT: normal ENT inspection, hearing grossly normal, pharynx normal Neck: supple, no adenopathy, thyroid normal, + JVD, no carotid bruits, trachea midline Respiratory/Chest: chest non-tender,decreased breath sounds, no respiratory distress, no accessory muscle use, breath sounds, rales, wheezing Cardiovascular: s1, s2, regular rate, rhythm, no JVD, no murmur Abdomen: normal bowel sounds, non tender, soft, no organomegaly, Extremities: normal range of motion, non-tender, normal inspection, Trace pedal edema, no calf tenderness, normal capillary refill, pelvis stable, joint has no limited range of motion, capillary refill is normal, no cyanosis clubbing Neurologic/Psychiatric: commercial director II-XII nml as tested, no motor/sensory deficits, alert, normal mood/affect, oriented x 3 Skin: normal color, warm/dry, no rash Lymphatic: no adenopathy Results & Data Laboratory Results Laboratory Results - last 24 hr 05/17/18 05/17/18 05/17/18 10:54 13:12 13:12 WBC RBC Hgb Hct MCV MCH MCHC RDW Std Deviation RDW Coeff of Thor Plt Count MPV Immature Gran % (Auto) Neut % (Auto) Lymph % (Auto) [place] % (Auto) Eos % (Auto) Baso % (Auto) Immature Gran # (Auto) Neut # (Auto) Lymph # (Auto) [place] # (Auto) Eos # (Auto) Baso # (Auto) Ovalocytes Echinocytes PT INR Sodium Potassium Chloride Carbon Dioxide Anion Gap BUN Creatinine Est Cr Clr Drug Dosing Est GFR ( Amer) Est GFR (Non-Af Amer) BUN/Creatinine Ratio Glucose POC Glucose 90 Calcium Total Bilirubin Direct Bilirubin AST ALT Alkaline Phosphatase Total Protein Albumin Free T4 1.04 Free T3 1.35 L 05/17/18 05/17/18 05/18/18 16:28 21:08 04:13 WBC 5.69 RBC 3.67 L Hgb 11.4 L Hct 32.2 L MCV 87.7 MCH 31.1 MCHC 35.4 RDW Std Deviation 54.3 H RDW Coeff of Thor 16.9 H Plt Count 92 L MPV 10.4 Immature Gran % (Auto) 1.8 Neut % (Auto) 65.8 Lymph % (Auto) 14.4 [place] % (Auto) 16.2 Eos % (Auto) 1.4 Baso % (Auto) 0.4 Immature Gran # (Auto) 0.10 H Neut # (Auto) 3.75 Lymph # (Auto) 0.82 L [place] # (Auto) 0.92 H Eos # (Auto) 0.08 Baso # (Auto) 0.02 Ovalocytes 2+ Echinocytes 1+ PT INR Sodium Potassium Chloride Carbon Dioxide Anion Gap BUN Creatinine Est Cr Clr Drug Dosing Est GFR ( Amer) Est GFR (Non-Af Amer) BUN/Creatinine Ratio Glucose POC Glucose 89 80 Calcium Total Bilirubin Direct Bilirubin AST ALT Alkaline Phosphatase Total Protein Albumin Free T4 Free T3 05/18/18 05/18/18 04:13 04:13 WBC RBC Hgb Hct MCV MCH MCHC RDW Std Deviation RDW Coeff of Thor Plt Count MPV Immature Gran % (Auto) Neut % (Auto) Lymph % (Auto) [place] % (Auto) Eos % (Auto) Baso % (Auto) Immature Gran # (Auto) Neut # (Auto) Lymph # (Auto) [place] # (Auto) Eos # (Auto) Baso # (Auto) Ovalocytes Echinocytes PT 34.8 H INR 3.7 H Sodium 137 Potassium 3.8 Chloride 108 H Carbon Dioxide 23 Anion Gap 6.0 BUN 51 H Creatinine 1.70 H D Est Cr Clr Drug Dosing 39.1 Est GFR ( Amer) 42.3 Est GFR (Non-Af Amer) 36.5 BUN/Creatinine Ratio 30.2 H Glucose 74 POC Glucose Calcium 7.8 L Total Bilirubin 2.9 H Direct Bilirubin 1.8 H AST 24 ALT 29 Alkaline Phosphatase 136 H Total Protein 5.9 L Albumin 2.4 L Free T4 Free T3 Microbiology 05/16/18 13:42 Urine,Clean Catch Urine Culture - Preliminary Streptococcus species Diptheroids 05/16/18 13:33 Blood Blood Culture - Preliminary No growth to date. 05/16/18 13:36 Blood Blood Culture - Preliminary No growth to date. _ (1) Hypothyroidism Hypothyroidism type: unspecified Qualified Code(s): E03.9 - Hypothyroidism, unspecified
--- NOTE | 2018-05-18 11:49 | Cardiology Progress Note ---
Date of Service May 18, 2018 Assessment & Plan (1) Acute on chronic systolic (congestive) heart failure: Patient currently stable on intravenous dobutamine. Has been receiving gentle hydration, however, does demonstrate evidence of hypervolemia. Would discontinue hydration at this time. We will need to initiate IV diuretics once blood pressure allows. (2) Hypotension: Patient currently stable on intravenous dobutamine. (3) Cardiomyopathy: Dilated nonischemic cardiomyopathy. (4) Atrial fibrillation: Permanent atrial fibrillation on long-term anticoagulation with warfarin. Subjective The patient denies chest pain and dyspnea. He is frustrated that so many doctors are involved. Physical Exam 2 Vital Signs (Past 24 Hours): Last Vital Signs Temp 36.6 C 05/18/18 08:00 Pulse 80 05/18/18 08:00 Resp 20 05/18/18 08:00 BP 96/51 L 05/18/18 08:00 Pulse Ox 91 05/18/18 08:00 Physical Exam: In general this is a well-developed well-nourished white male in no acute distress. HEENT exam is negative. Neck is supple with full carotid upstrokes. No obvious bruits. Jugular venous pressure is elevated to the angle of the jaw at 90 degrees. Cardiovascular exam reveals an irregular rhythm with distant heart sounds. Lungs note decreased breath sounds at the bases. Chest reveals a palpable device in the left subclavicular region. Abdomen is soft without bruits. Extremities reveal 1+ pretibial edema bilaterally. Results & Data Laboratory Results Laboratory Results - last 24 hr 05/17/18 05/17/18 05/17/18 13:12 13:12 16:28 WBC RBC Hgb Hct MCV MCH MCHC RDW Std Deviation RDW Coeff of Thor Plt Count MPV Immature Gran % (Auto) Neut % (Auto) Lymph % (Auto) [place] % (Auto) Eos % (Auto) Baso % (Auto) Immature Gran # (Auto) Neut # (Auto) Lymph # (Auto) [place] # (Auto) Eos # (Auto) Baso # (Auto) Ovalocytes Echinocytes PT INR Sodium Potassium Chloride Carbon Dioxide Anion Gap BUN Creatinine Est Cr Clr Drug Dosing Est GFR ( Amer) Est GFR (Non-Af Amer) BUN/Creatinine Ratio Glucose POC Glucose 89 Calcium Total Bilirubin Direct Bilirubin AST ALT Alkaline Phosphatase Total Protein Albumin Free T4 1.04 Free T3 1.35 L 05/17/18 05/18/18 05/18/18 21:08 04:13 04:13 WBC 5.69 RBC 3.67 L Hgb 11.4 L Hct 32.2 L MCV 87.7 MCH 31.1 MCHC 35.4 RDW Std Deviation 54.3 H RDW Coeff of Thor 16.9 H Plt Count 92 L MPV 10.4 Immature Gran % (Auto) 1.8 Neut % (Auto) 65.8 Lymph % (Auto) 14.4 [place] % (Auto) 16.2 Eos % (Auto) 1.4 Baso % (Auto) 0.4 Immature Gran # (Auto) 0.10 H Neut # (Auto) 3.75 Lymph # (Auto) 0.82 L [place] # (Auto) 0.92 H Eos # (Auto) 0.08 Baso # (Auto) 0.02 Ovalocytes 2+ Echinocytes 1+ PT 34.8 H INR 3.7 H Sodium Potassium Chloride Carbon Dioxide Anion Gap BUN Creatinine Est Cr Clr Drug Dosing Est GFR ( Amer) Est GFR (Non-Af Amer) BUN/Creatinine Ratio Glucose POC Glucose 80 Calcium Total Bilirubin Direct Bilirubin AST ALT Alkaline Phosphatase Total Protein Albumin Free T4 Free T3 05/18/18 05/18/18 04:13 11:41 WBC RBC Hgb Hct MCV MCH MCHC RDW Std Deviation RDW Coeff of Thor Plt Count MPV Immature Gran % (Auto) Neut % (Auto) Lymph % (Auto) [place] % (Auto) Eos % (Auto) Baso % (Auto) Immature Gran # (Auto) Neut # (Auto) Lymph # (Auto) [place] # (Auto) Eos # (Auto) Baso # (Auto) Ovalocytes Echinocytes PT INR Sodium 137 Potassium 3.8 Chloride 108 H Carbon Dioxide 23 Anion Gap 6.0 BUN 51 H Creatinine 1.70 H D Est Cr Clr Drug Dosing 39.1 Est GFR ( Amer) 42.3 Est GFR (Non-Af Amer) 36.5 BUN/Creatinine Ratio 30.2 H Glucose 74 POC Glucose 95 Calcium 7.8 L Total Bilirubin 2.9 H Direct Bilirubin 1.8 H AST 24 ALT 29 Alkaline Phosphatase 136 H Total Protein 5.9 L Albumin 2.4 L Free T4 Free T3 Diagnostic Findings surveillance system monitor notes rate controlled atrial fibrillation.
--- NOTE | 2018-05-18 18:41 | Critical Care Progress Note ---
Date of Service May 18, 2018 Assessment & Plan (1) Acute kidney injury: Impression: 1.Acute on chronic kidney insufficiency, the patient has been on Lasix, with poor oral intake for the past 5 days, this represents mostly dehydration rather than poor cardiac output. 2. Cardiomyopathy with ejection fraction of 20%, defibrillator in place. And decompensating. 3. History of A. fib, rate controlled, on Coumadin. INR is therapeutic. 4. History of urinary retention, Walton catheter is in place. 5. Possible depression. Plan: 1. I will continue to hold off Lasix, and started later. 2. Keep dobutamine 7.5 mics per KG per minute at fixed dose. It can be weaned off later and slowly. 3. Continue to hold off Coreg and lisinopril until blood pressure improved.. 4. Decrease IV fluid to 40 mL of normal saline per hour and complete the current bag then stop it. 5. Coumadin is on hold as INR is still 3.7. 6. Discussed with Dr. Cedillo from cardiology, appreciate their input.. 7. Monitor the urine output. 8. Walton catheter if needed. 9. Continue oral intake. Encouraged the patient to take orals. 10. Discussed with the staff on rounds. 11. Zofran for nausia. 12. Transfer the patient to telemetry floor. Discussed with Dr. Watts, appreciate his acceptance. 13. Discussed with the patient, all his questions been answered. Thank you, CCM time was 35 minutes. Subjective The patient overall feels better, his blood pressure has been improving, his kidney function also improved and urine output as well. He is currently on dobutamine 7.5 mics per KG per minute. He denies any overall pain or fatigue. He continued to refuse oral intake. Somewhat depressed. The rest of his review of system otherwise was unremarkable. Physical Exam 2 Vital Signs (Past 24 Hours): Last Vital Signs Temp 36.9 C 05/18/18 16:00 Pulse 84 05/18/18 16:00 Resp 22 05/18/18 16:00 BP 100/60 05/18/18 16:00 Pulse Ox 94 05/18/18 16:00 Physical Exam: Vital signs are stable, S1-S2 regular rate and rhythm, distant breath sounds bilaterally, the patient is based on the rhythm, abdomen is benign , positive JVP, 2+ edema in the periphery. Results & Data Laboratory Results Labs were reviewed and showed improvement in his renal function. Diagnostic Findings No new imaging.
[2018-05-19] MEDS: DOBUTamine / D5W 500 MG/250 ML BAG IV SCH ×3 (00:23→07:56)
[2018-05-19 04:45] LABS: Basophils # (auto) 0.03 K/uL (0-0.2); Basophils % (auto) 0.5 %; Eosinophils % (auto) 1.7 %; Hematocrit (blood only) 35.3 % (42-52); Hemoglobin 12.1 g/dL (14.0-18.0); Immature Granulocytes % (auto) 1.7 %; Lymphocytes # (auto) 0.83 K/uL (1.2-3.4); Mean Corpuscular Hgb Conc 34.3 g/dL (32-36); Mean Corpuscular Volume 89.1 fL (80-100); Mean Platelet Volume 10.1 fL (7.4-10.4); Monocytes % (auto) 10.1 %; Neutrophils # (auto) 4.26 K/uL (1.4-6.5); Platelet Count 113 K/uL (130-400); RDW Standard Deviation 55.6 fL (36.4-46.3); Red Blood Count 3.96 M/uL (4.7-6.1); White Blood Count 5.92 K/uL (4.8-10.8)
[2018-05-19 04:51] LABS: INR 3.5 (0.9-1.1); Prothrombin Time 32.8 Seconds (9.0-12.0)
[2018-05-19 05:01] LABS: Albumin Level 2.5 gm/dl (3.4-5.0); BUN Creatinine Ratio 26.2 (10-20); Bilirubin Direct 1.8 mg/dl (0-0.2); Est GFR (African American) 56.9; Est GFR (Non-African American) 49.1; Magnesium 2.1 mg/dl (1.8-2.4); Potassium 3.8 mmol/L (3.5-5.1)
[2018-05-19 05:06] LABS: Phosphorus 2.3 mg/dl (2.5-4.9); Total Protein 6.3 gm/dl (6.4-8.2)
[2018-05-19] MEDS: LEVOTHYROXINE SODIUM 75 MCG TABLET PO SCH (07:56)
--- NOTE | 2018-05-19 11:48 | Critical Care Progress Note ---
Date of Service May 19, 2018 Assessment & Plan (1) Acute kidney injury: Impression: 1.Acute on chronic kidney insufficiency, the patient has been on Lasix, with poor oral intake for the past 5 days, this represents mostly dehydration rather than poor cardiac output. 2. Cardiomyopathy with ejection fraction of 20%, defibrillator in place. And decompensating. 3. History of A. fib, rate controlled, on Coumadin. INR is therapeutic. 4. History of urinary retention, Walton catheter is in place. 5. depression. Plan: 1. I will continue to hold off Lasix, and started later. 2. Decrease dobutamine to 5 mics per KG per minute. If the blood pressure with a map more than 65, decrease it to 2.5 mics per KG per minute. 3. Continue to hold off Coreg and lisinopril until blood pressure improved. 4. Discontinue IV fluid. 5. Coumadin is on hold as INR is still 3.5. 6. Discussed with Dr. Cedillo from cardiology, appreciated. 7. Monitor the urine output. 8. Walton catheter if needed. 9. Consider psych consult or [facility] psych consult due to depression with advanced cardiac disease. 10. Discussed with the staff on rounds. 11. Transfer the patient to telemetry. Discussed with Dr. Simon, appreciated. Thank you, CCM time was 35 minutes. Subjective The patient is very unpromoted, does not want to walk out of the bed, does not want to eat as well, he denies any chest pain or shortness of breath, no abdominal pain, no dysuria, no diarrhea, no fever or constitutional symptoms, review of system otherwise was unremarkable. Physical Exam 2 Vital Signs (Past 24 Hours): Last Vital Signs Temp 36.6 C 05/19/18 08:06 Pulse 81 05/19/18 10:17 Resp 24 05/19/18 10:17 BP 101/62 05/19/18 10:17 Pulse Ox 97 05/19/18 08:06 Physical Exam: Elderly gentleman, appears very depressed, does not appear to be in distress, S1-S2 paced, lungs are clear, abdomen is benign, edema 2+ in the periphery. Blood pressure has been maintained at 100/62 with a map of 67. Neurologically he is intact and competent, psychiatrically he appeared deeply depressed. Results & Data Laboratory Results His labs were reviewed. Maintained BUN and creatinine. Diagnostic Findings No new imaging.
--- NOTE | 2018-05-19 11:55 | Hospitalist Progress Note ---
Date of Service May 19, 2018 Assessment & Plan (1) Hypotension: (2) NICM (nonischemic cardiomyopathy): (3) Abnormal LFTs: (4) Chronic kidney disease, stage 3a: (5) BPH (benign prostatic hyperplasia): (6) Hypothyroidism: (7) Nonsustained ventricular tachycardia: 83 yo male with history of dilated NICM, EF < 20% Admitted on May 16, 2017 Hypotensive, relative to stable however remains severe sick Hypotension likely because of dehydration, acute on chronic kidney failure, other differential diagnosis for hypotension is cardiac, which is possible because patient has significant decreased LVEF, an d hx of NICM, However patient has no acute DC for now Possible decompensated acute on chronic CHF exacerbation, Possible Cardiorenal syndrome is in the differential diagnosis,With an elevated BNP at 20,000 and elevated troponin, and worsening kidney function upon admission, today's creatinine improved from 1.7-1.3, after gentle IV fluid and hold off Lasix, extensive cardiac history, NICM with severely depressed EF < 20%, NSVT with BiV AICD in place, hx of Hypertension, Currently is hypotensive need pressor support, small pericardial effusion, no evidence of tamponade Discussed with electronic coils supervisor, abatement worker, fixed dose dobutamine drip, no more IV fluid, but no lasix for now Closely monitor electrolytes and optimize as needed A. fib on Coumadin, hypertherapeutic INR at 3. 5 continue hold Coumadin Mild elevated troponin at 0.08 to 0.05, Negative troponin EKG because of acute on chronic kidney failure, Atrial fibrillation, patient with PFO - s/p ablation, pacer in place. Patient anticoagulated with Coumadin, Continue holding metoprolol, because of was hypotensive, abnormal LFTs, Tbili=3.3, AST=60, BA=458, continue stable today Likely from CHF exacerbation liver congestion, LFT have been abnormal in the past. RUQ US obtained which reveals cirrhotic morphology of the liver with ascites. Mild gallbladder wall thickening without cholelithiasis and hyperechoic lesion of right hepatic lobe. 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, hepatic congestion from right heart failure Continue monitor liver function, will repeat labs tomorrow Poor appetite and malnutrition, dietitian consult, start Megace, enterococus UTI, history of BPH with severe urinary retention as well as hematuria Upon admission, Plan to discontinue Walton, start Augmentin will need 7-10 days,, today's date 1 out of 10 Discussed with patient about care plan, offered to talk to family members, patient declined, need to address CODE STATUS, possible patient is deconditioning, will have palliative care to talk about CODE STATUS and goal of care GI DVT px is covered (8) UTI (urinary tract infection): (9) Cardiomyopathy: (10) Atrial fibrillation: (11) Coronary artery disease: Subjective Report tired, oral dry, no appetite, poor oral intake, hypotension is resolved ICU team has decreased dobutamine dose from 7.5 to 5 Serg Review of Systems Constitutional: Positive weakness, or fatigue Respiratory: occassional cough, sputum, no wheezing, Cardiac: No chest pain, No orthopnea, Abdomen: No pain, No nausea, No vomiting, No diarrhea, Musculoskeletal: No joint pain, No muscle pain, : No dysuria, No urinary frequency, No incontinence, No hematuria Neurologic: No paralysis, No weakness, No numbness/tingling, Psychiatric: No anhedonism, No anxiety, No insomnia, Heme: No abnormal bleeding/bruising, No clotting problems, Skin: No rash, No itch, No new/changing skin lesions, No color change, No bleeding Physical Exam 2 Vital Signs (Past 24 Hours): Last Vital Signs Temp 36.6 C 05/19/18 08:06 Pulse 81 05/19/18 10:17 Resp 24 05/19/18 10:17 BP 101/62 05/19/18 10:17 Pulse Ox 97 05/19/18 08:06 Results & Data Laboratory Results Laboratory Results - last 24 hr 05/19/18 05/19/18 05/19/18 04:07 04:07 04:07 WBC 5.92 RBC 3.96 L Hgb 12.1 L Hct 35.3 L MCV 89.1 MCH 30.6 MCHC 34.3 RDW Std Deviation 55.6 H RDW Coeff of Thor 17.0 H Plt Count 113 L MPV 10.1 Immature Gran % (Auto) 1.7 Neut % (Auto) 72.0 Lymph % (Auto) 14.0 [place] % (Auto) 10.1 Eos % (Auto) 1.7 Baso % (Auto) 0.5 Immature Gran # (Auto) 0.10 H Neut # (Auto) 4.26 Lymph # (Auto) 0.83 L [place] # (Auto) 0.60 H Eos # (Auto) 0.10 Baso # (Auto) 0.03 PT 32.8 H INR 3.5 H Sodium 137 Potassium 3.8 Chloride 109 H Carbon Dioxide 25 Anion Gap 3.0 BUN 35 H Creatinine 1.33 D Est Cr Clr Drug Dosing 50.0 Est GFR ( Amer) 56.9 Est GFR (Non-Af Amer) 49.1 BUN/Creatinine Ratio 26.2 H Glucose 99 Calcium 8.0 L Phosphorus 2.3 L Magnesium 2.1 Total Bilirubin 3.0 H Direct Bilirubin 1.8 H AST 20 ALT 24 Alkaline Phosphatase 140 H NT-Pro-B Natriuret Pep 88786 H Total Protein 6.3 L Albumin 2.5 L Microbiology 05/16/18 13:42 Urine,Clean Catch Urine Culture - Final Enterococcus faecalis Diptheroids 05/16/18 13:33 Blood Blood Culture - Preliminary No growth to date. 05/16/18 13:36 Blood Blood Culture - Preliminary No growth to date. _ (1) Hypothyroidism Hypothyroidism type: unspecified Qualified Code(s): E03.9 - Hypothyroidism, unspecified
--- NOTE | 2018-05-19 12:01 | Cardiology Progress Note ---
Date of Service May 19, 2018 Assessment & Plan (1) Acute on chronic systolic (congestive) heart failure: Patient is stable this morning. His dobutamine is being weaned currently. He will require intravenous diuretics once his blood pressure allows. Fortunately, he is fairly well compensated at this time. (2) Hypotension: Stable on low-dose intravenous dobutamine. That infusion is currently being weaned. (3) Cardiomyopathy: Dilated nonischemic cardiomyopathy. (4) Atrial fibrillation: Permanent atrial fibrillation on long-term anticoagulation with warfarin. INR is supratherapeutic today. Subjective The patient denies chest pain, dyspnea, and palpitations. Physical Exam 2 Vital Signs (Past 24 Hours): Last Vital Signs Temp 36.6 C 05/19/18 08:06 Pulse 81 05/19/18 10:17 Resp 24 05/19/18 10:17 BP 101/62 05/19/18 10:17 Pulse Ox 97 05/19/18 08:06 Physical Exam: In general this is a well-developed well-nourished white male in no acute distress. HEENT exam is negative. Neck is supple with full carotid upstrokes. No obvious bruits. Jugular venous pressure is elevated to the angle of the jaw at 45 degrees. Cardiovascular exam reveals an irregular rhythm with distant heart sounds. Lungs note decreased breath sounds at the bases. Chest reveals a palpable device in the left subclavicular region. Abdomen is soft without bruits. Extremities reveal 1+ pretibial edema bilaterally. Results & Data Laboratory Results Laboratory Results - last 24 hr 05/19/18 05/19/18 05/19/18 04:07 04:07 04:07 WBC 5.92 RBC 3.96 L Hgb 12.1 L Hct 35.3 L MCV 89.1 MCH 30.6 MCHC 34.3 RDW Std Deviation 55.6 H RDW Coeff of Thor 17.0 H Plt Count 113 L MPV 10.1 Immature Gran % (Auto) 1.7 Neut % (Auto) 72.0 Lymph % (Auto) 14.0 [place] % (Auto) 10.1 Eos % (Auto) 1.7 Baso % (Auto) 0.5 Immature Gran # (Auto) 0.10 H Neut # (Auto) 4.26 Lymph # (Auto) 0.83 L [place] # (Auto) 0.60 H Eos # (Auto) 0.10 Baso # (Auto) 0.03 PT 32.8 H INR 3.5 H Sodium 137 Potassium 3.8 Chloride 109 H Carbon Dioxide 25 Anion Gap 3.0 BUN 35 H Creatinine 1.33 D Est Cr Clr Drug Dosing 50.0 Est GFR ( Amer) 56.9 Est GFR (Non-Af Amer) 49.1 BUN/Creatinine Ratio 26.2 H Glucose 99 Calcium 8.0 L Phosphorus 2.3 L Magnesium 2.1 Total Bilirubin 3.0 H Direct Bilirubin 1.8 H AST 20 ALT 24 Alkaline Phosphatase 140 H NT-Pro-B Natriuret Pep 83704 H Total Protein 6.3 L Albumin 2.5 L Diagnostic Findings media monitor notes rate controlled atrial fibrillation.
[2018-05-19] MEDS: AMOXICILLIN/CLAVULANATE 875 MG TAB PO SCH (16:50)
[2018-05-19] MEDS: MEGESTROL ACETATE SUSP 400 MG/10 ML UDC PO SCH (20:28)
[2018-05-20] MEDS: DOBUTamine / D5W 500 MG/250 ML BAG IV SCH ×2 (00:42→18:32)
[2018-05-20] MEDS: LEVOTHYROXINE SODIUM 75 MCG TABLET PO SCH (06:06)
[2018-05-20 06:16] LABS: Basophils # (auto) 0.03 K/uL (0-0.2); Basophils % (auto) 0.4 %; Eosinophils # (auto) 0.12 K/uL (0-0.5); Eosinophils % (auto) 1.7 %; Hematocrit (blood only) 31.9 % (42-52); Hemoglobin 11.1 g/dL (14.0-18.0); Immature Granulocytes # (auto) 0.08 K/uL (0.00-0.02); Immature Granulocytes % (auto) 1.1 %; Lymphocytes # (auto) 0.76 K/uL (1.2-3.4); Lymphocytes % (auto) 10.9 %; Mean Corpuscular Hgb Conc 34.8 g/dL (32-36); Mean Corpuscular Volume 88.9 fL (80-100); Mean Platelet Volume 10.5 fL (7.4-10.4); Monocytes # (auto) 0.64 K/uL (0.11-0.59); Monocytes % (auto) 9.2 %; Neutrophils # (auto) 5.36 K/uL (1.4-6.5); Neutrophils % (auto) 76.7 %; Platelet Count 130 K/uL (130-400); RDW Coefficient of Variation 17.1 % (11.5-14.5); RDW Standard Deviation 55.1 fL (36.4-46.3); Red Blood Count 3.59 M/uL (4.7-6.1); White Blood Count 6.99 K/uL (4.8-10.8)
[2018-05-20 06:50] LABS: BUN Creatinine Ratio 26.9 (10-20); Calcium 7.8 mg/dl (8.5-10.1); Creatinine Clr Calc Pharmacy 55.3 ml/min; Est GFR (African American) 70.8; Est GFR (Non-African American) 61.1; Phosphorus 2.5 mg/dl (2.5-4.9); Potassium 3.9 mmol/L (3.5-5.1)
[2018-05-20] MEDS: MEGESTROL ACETATE SUSP 400 MG/10 ML UDC PO SCH ×2 (07:40→21:09)
[2018-05-20] MEDS: AMOXICILLIN/CLAVULANATE 875 MG TAB PO SCH ×2 (07:41→17:22)
--- NOTE | 2018-05-20 09:43 | Cardiology Progress Note ---
Date of Service May 20, 2018 Assessment & Plan (1) Acute on chronic systolic (congestive) heart failure: Patient appears compensated from a heart failure standpoint. His dobutamine is being weaned currently. -- Resume Carvedilol when BP allows. -- Resume Lisinopril as an outpatient after BP is adequate. -- Resume diuretics when BP allows. (2) Hypotension: Stable on low-dose intravenous dobutamine. That infusion is currently being weaned. (3) Cardiomyopathy: Dilated nonischemic cardiomyopathy. -- Resume Carvedilol when BP allows. -- Resume Lisinopril as an outpatient after BP is adequate. -- Resume diuretics when BP allows. (4) Atrial fibrillation: Permanent atrial fibrillation: -- Continue long-term anticoagulation with warfarin. -- Recheck INR. Supervising Physician Co-Signing Physician Notes Fernando Amin MD Patient seen and examined, agree with above. Subjective Mr. 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 His hypotension and CHF symptoms required Dobutamine Drip -- initially at 21 mcg/Kg/min and he is now down to 5 mcg/Kg/min. Fortunately his SBP's are being maintained in the upper 90's, and low 100's. Patient was out of bed yesterday and did not have any lightheadedness or dizziness. His abdominal bloating has resdolved although appetite has not returned to baseline yet. He feels that his breathing is at baseline. He denies any chest pain or discomfort. He has minimal leg edema. Physical Exam 2 Vital Signs (Past 24 Hours): Last Vital Signs Temp 37.0 C 05/20/18 07:12 Pulse 88 05/20/18 07:12 Resp 20 05/20/18 07:12 BP 100/63 05/20/18 07:12 Pulse Ox 93 05/20/18 07:12 Physical Exam: General: Patient in no acute distress. HEENT: Head is atraumatic, normocephalic. EOMs intact. Sclerae anicteric. Facies symmetric. No perioral cyanosis. Neck: No JVD. Carotid upstrokes +2 bilaterally without bruits. JVP is not elevated. Chest and Lungs: Mildly diminished breath sounds in bilateral bases, no rales or wheezes. CVS: S1 and S2 are irregularly irregular with a controlled V rate. PMI is laterally displaced. No abdominal aortic or renal bruits. Abdominal Exam: Abdomen is mildly distended. Bowel sounds present. No masses, organomegaly, or tenderness. Extremities: No clubbing or cyanosis. Trace pretibial edema. Intact posterior tibial and radial pulses bilaterally. Neurologic Exam: Patient is awake, alert, and oriented. Pleasant and cooperative. Answers questions appropriately. Speech is clear. Normal movement in all 4 extremities. Gait pattern was not assessed. Results & Data Laboratory Results Laboratory Results - last 24 hr 05/20/18 05/20/18 05:47 05:47 WBC 6.99 RBC 3.59 L Hgb 11.1 L Hct 31.9 L MCV 88.9 MCH 30.9 MCHC 34.8 RDW Std Deviation 55.1 H RDW Coeff of Thor 17.1 H Plt Count 130 MPV 10.5 H Immature Gran % (Auto) 1.1 Neut % (Auto) 76.7 Lymph % (Auto) 10.9 [place] % (Auto) 9.2 Eos % (Auto) 1.7 Baso % (Auto) 0.4 Immature Gran # (Auto) 0.08 H Neut # (Auto) 5.36 Lymph # (Auto) 0.76 L [place] # (Auto) 0.64 H Eos # (Auto) 0.12 Baso # (Auto) 0.03 Sodium 137 Potassium 3.9 Chloride 108 H Carbon Dioxide 22 Anion Gap 7.0 BUN 30 H Creatinine 1.11 Est Cr Clr Drug Dosing 55.3 Est GFR ( Amer) 70.8 Est GFR (Non-Af Amer) 61.1 BUN/Creatinine Ratio 26.9 H Glucose 82 Calcium 7.8 L Phosphorus 2.5 Magnesium 2.0 Medications Administered Active Medications Generic Name Dose Route Start Last Admin Trade Name Freq PRN Reason Stop Dose Admin Amoxicillin/Clavulanate Potassium 1 tab 05/19/18 17:00 05/20/18 07:41 Augmentin 875mg PO 05/24/18 16:59 1 tab BIDM LENNY Administration Dobutamine HCl/Dextrose 500 mg in 250 mls @ 13.995 mls/hr 05/17/18 08:05 11/29 00:42 Dobutamine / D5w IV 06/16/18 08:04 5 mcg/kg/min .[id number] LENNY 14 mls/hr Administration Protocol 5 MCG/KG/MIN Levothyroxine Sodium 75 mcg 05/18/18 06:30 05/20/18 06:06 Synthroid PO 06/17/18 06:29 75 mcg DAILYBB LENNY Administration Megestrol Acetate 400 mg 05/19/18 21:00 05/20/18 07:40 Megace PO 06/18/18 20:59 400 mg Q12 LENNY Administration Ondansetron HCl 4 mg 05/17/18 09:06 05/17/18 09:20 Zofran IV 06/16/18 09:05 4 mg Q6H PRN Administration Nausea Warfarin Sodium 2.5 mg 05/17/18 16:00 Coumadin PO 06/16/18 15:59 DAILY@1600 LENNY
--- NOTE | 2018-05-20 09:52 | Palliative Care Consultation ---
Date of Consultation May 20, 2018 History of Present Illness Attending Physician: Michael Marcos MD Allergies Allergy/AdvReac Type Severity Reaction Status Date / Time atorvastatin Allergy Unknown GI SYMPTOMS Verified 05/16/18 15:45 simvastatin Allergy Unknown GI SYMPTOMS Verified 05/16/18 15:45 Home Medications Home Medications Medication Instructions Recorded Confirmed Type carvedilol 25 mg PO BID 02/18/18 05/16/18 History warfarin [Jantoven] 2.5 mg PO QPM 03/06/18 05/16/18 History lisinopril 5 mg PO QAM #15 tab 03/10/18 05/16/18 Rx furosemide 40 mg PO DAILY 05/16/18 05/16/18 History tamsulosin 0.4 mg PO BID 05/16/18 05/16/18 History Patient History Medical History Lower extremity edema Pacemaker (Acute) BPH (benign prostatic hyperplasia) CKD (chronic kidney disease) Hypertension CHF (congestive heart failure) (Chronic) 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 Acetabular fracture UTI (urinary tract infection) Urinary retention Urinary tract infection Surgical History Previous back surgery S/P knee surgery Status post placement of cardiac pacemaker (Resolved) Biventricular ICD Family History Other Cancer Heart attack Heart disease No pertinent family history Social History marital status: Current Living Situation: Spouse Other Information That Helps Us Care for You: No Feels Safe at Home: Yes Safety Concerns: Feels Safe At This Time Smoking Status: Never smoker Hx Alcohol Use: No Hx Substance Use: No Beliefs That Will Affect Care: None Communication Ability: Effective Physical Exam 2 Vital Signs (Past 24 Hours): Last Vital Signs Temp 37.0 C 05/20/18 07:12 Pulse 88 05/20/18 07:12 Resp 20 05/20/18 07:12 BP 100/63 05/20/18 07:12 Pulse Ox 93 05/20/18 07:12
--- NOTE | 2018-05-20 15:49 | Hospitalist Progress Note ---
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 AICD in place. Was started on dobutamine on admission due to low BPs. - Continue dobutamine gtt - Weaned to 2.5 mcg/kg/min on 05/20 with plan to stop tomorrow - Holding beta-neha, Lasix, ACEi for low blood pressure (2) Atrial fibrillation: Patient with PFO - s/p ablation, pacer in place. Patient anticoagulated with Coumadin. - Holding Coreg for low BP - HR within acceptable range - INR was 3.5 on 05/19 - Holding warfarin at this time (3) Abnormal LFTs: AST/ALT were initially mildly elevated at 60/45 on admission (05/16); however, they trended down to normal. Tbili still elevated at 3.0, but stable. Likely hepatic congestion from his cardiac disease. - Trend LFTs (4) Chronic kidney disease, stage 3a: Baseline Cr is ~1.3. It was 2.8 on admission due to cardiorenal syndrome/ ATN from his hypotension. - Cr down to 1.1 (baseline) - Monitor Cr (5) BPH (benign prostatic hyperplasia): History of BPH with severe urinary retention as well as hematuria. - Walton in place as of admission (05/16) - Consider urology evaluation if he retains after Walton removal (6) UTI (urinary tract infection): Augmentin started on 05/19 for concern for UTI. - Continue Augmentin (End date: 05/26) (7) Hypothyroidism: TSH was 10.0 and FT4 was 1.1 on 05/16. Started on Synthroid. - Continue Synthroid 75 mcg daily. (8) DVT prophylaxis: On warfarin for his afib Subjective 83yo M w/ hx of ICM with low EF who presented with fatigue. This morning, he is in a poor mood and requests that I leave him alone. Reports no fevers/chills, chest pain, shortness of breath, abdominal pain, nausea, or vomiting. Physical Exam 2 Vital Signs (Past 24 Hours): Last Vital Signs Temp 36.9 C 05/20/18 15:04 Pulse 87 05/20/18 15:04 Resp 18 05/20/18 15:04 BP 97/56 L 05/20/18 15:04 Pulse Ox 99 05/20/18 15:04 Constitutional: WD/WN, vitals as above + thin, + cachectic and + physical limitations; no acute distress Eyes: EOM intact bilaterally; no conjunctival abnormality ENMT: external ear and nose normal, oropharynx normal Neck: trachea midline, no thyromegaly normal visual inspection Respiratory: normal respiratory effort, lungs clear to auscultation no respiratory distress Cardiovascular: RRR, no murmur, no edema Gastrointestinal (Abdomen): Inspection/Auscultation: abdomen normal to inspection; abdomen not distended Musculoskeletal: no cyanosis or clubbing, extremities motor strength 5/5 Skin: no rashes, warm and dry Neurologic: moves all extremities and awake Psychiatric: Orientation: alert, oriented to person and cooperative _ (1) Hypothyroidism Hypothyroidism type: unspecified Qualified Code(s): E03.9 - Hypothyroidism, unspecified
--- NOTE | 2018-05-20 16:42 | Palliative Care Consultation ---
Date of Consultation May 20, 2018 Assessment & Plan (1) Palliative care encounter: Patient is an 83-year-old male with a history of idiopathic cardiomyopathy -with an EF of 15-20%, status post biventricular AICD, chronic systolic heart failure, A. fib-status post ablation, and CKD who presented to the ER on 05/16 with increased abdominal bloating with pain, increased lower extremity edema, loss of appetite and decreased p.o. intake. Patient's initial blood pressure in the emergency room was 84/57, sats were 98% on room air, patient's creatinine was 2.83-baseline approximately 1.2. Patient was admitted, put on dobutamine and diuresed. Patient seen and examined with his at bedside. Patient and state that his edema is back to his baseline, his respiratory status has improved. Patient is being slowly weaned off dobutamine as his blood pressure allows. 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 Patient and understand that his heart failure is worsening- but do not know his general prognosis. He is in end-stage heart failure-it would be helpful for them to know if his prognosis is in a number of months or a year or 2. Discussed that he is now having more frequent hospitalizations despite aggressive medical management-patient states he weighs himself daily and takes diuretics if weight is up per cardiology parameters. Patient and have 2 children-the son helps with the farm however he is not planning to take over the farm when his parents are no longer able to work the farm, they have another daughter who lives locally. Asked patient how he felt his general health and heart status for he felt his health was stable. Patient would like to return home with the -she has set up a bedroom for him downstairs near the bathroom to minimize exertion. Patient states he feels he will improve better at home-with improved sleep, being able to eat when he wants, etc. 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 Discussed making plans for his continued care as his health declines. -Idiopathic cardiomyopathy-EF 15-20%-initiate discussion regarding goals of care-patient at this time would plan to return to the hospital if needed- discussed hospice care when coming to the hospital is no longer beneficial -Acute on chronic CHF-patient improving with dobutamine and gentle diuresis- patient reports he is back to his baseline lower extremity edema. -Will need to have further conversations once cardiology is able to give the patient a more defined prognosis -At this point patient wishes to remain a FULL CODE. (2) Cardiomyopathy: Continue medical management as per cardiology (3) Acute on chronic systolic (congestive) heart failure: Abdominal bloating and lower extremity edema improved with dobutamine and gentle diuresis (4) Acute kidney injury: Improving-creatinine 2.83 on admission-down to 1.11 today, baseline is approximately 1.2 (5) Lower extremity edema: Patient's lower extremity edema at baseline-1+ pitting edema to midshin History of Present Illness Reason for Consultation: Address goals of care Requesting Physician: Dr Watts Attending Physician: Michael Marcos MD History of Present Illness Patient is an 83-year-old male with a history of idiopathic cardiomyopathy-with an EF of 15-20%, status post biventricular AICD, chronic systolic heart failure , A. fib-status post ablation, and CKD who presented to the ER on 05/16 with increased abdominal bloating with pain, increased lower extremity edema, loss of appetite and decreased p.o. intake. Patient's initial blood pressure in the emergency room was 84/57, sats were 98% on room air, patient's creatinine was 2.83-baseline approximately 1.2. Patient was admitted, put on dobutamine and diuresed. Patient seen and examined with his at bedside. Patient and state that his edema is back to his baseline, his respiratory status has improved. Patient is being slowly weaned off dobutamine as his blood pressure allows. 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 Patient and understand that his heart failure is worsening- but do not know his general prognosis. He is in end-stage heart failure-it would be helpful for them to know if his prognosis is in a number of months or a year or 2. Discussed that he is now having more frequent hospitalizations despite aggressive medical management-patient states he weighs himself daily and takes diuretics if weight is up per cardiology parameters. Patient and have 2 children-the son helps with the farm however he is not planning to take over the farm when his parents are no longer able to work the farm, they have another daughter who lives locally. Asked patient how he felt his general health and heart status for he felt his health was stable. Patient would like to return home with the -she has set up a bedroom for him downstairs near the bathroom to minimize exertion. Patient states he feels he will improve better at home-with improved sleep, being able to eat when he wants, etc. 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 Discussed making plans for his continued care as his health declines. Allergies Allergy/AdvReac Type Severity Reaction Status Date / Time atorvastatin Allergy Unknown GI SYMPTOMS Verified 05/16/18 15:45 simvastatin Allergy Unknown GI SYMPTOMS Verified 05/16/18 15:45 Home Medications Home Medications Medication Instructions Recorded Confirmed Type carvedilol 25 mg PO BID 02/18/18 05/16/18 History warfarin [Jantoven] 2.5 mg PO QPM 03/06/18 05/16/18 History lisinopril 5 mg PO QAM #15 tab 03/10/18 05/16/18 Rx furosemide 40 mg PO DAILY 05/16/18 05/16/18 History tamsulosin 0.4 mg PO BID 05/16/18 05/16/18 History Patient History Medical History Lower extremity edema Pacemaker (Acute) BPH (benign prostatic hyperplasia) CKD (chronic kidney disease) Hypertension CHF (congestive heart failure) (Chronic) 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 Acetabular fracture UTI (urinary tract infection) Urinary retention Urinary tract infection Surgical History Previous back surgery S/P knee surgery Status post placement of cardiac pacemaker (Resolved) Biventricular ICD Family History Other Cancer Heart attack Heart disease No pertinent family history Social History marital status: Current Living Situation: Spouse Other Information That Helps Us Care for You: No Feels Safe at Home: Yes Safety Concerns: Feels Safe At This Time Smoking Status: Never smoker Hx Alcohol Use: No Hx Substance Use: No Beliefs That Will Affect Care: None Communication Ability: Effective Review of Systems Constitutional: + weakness Eyes: no problem reported Ear, Nose, Mouth, Throat: no problem reported Respiratory: + dyspnea on exertion Cardiovascular: + edema Gastrointestinal: + bloating Musculoskeletal: + muscle weakness Integumentary: no problem reported Neurologic: + generalized weakness Hypothyroid Physical Exam 2 Vital Signs (Past 24 Hours): Last Vital Signs Temp 36.9 C 05/20/18 15:04 Pulse 87 05/20/18 15:04 Resp 18 05/20/18 15:04 BP 97/56 L 05/20/18 15:04 Pulse Ox 99 05/20/18 15:04 Constitutional: NAD, mild SOB with conversation Eyes: EOMI Respiratory: clear on exam Cardiovascular: Irreg. 1+ pitting edema to mid whitehead Gastrointestinal (Abdomen): soft, NT Skin: no pallor Neurologic: A&O X 4 Psychiatric: appropriate mood Time Spent Attending Total time spent 75 minutes with greater than 50% of the time spent at bedside discussing patient's current status, and goals of care.
[2018-05-21] MEDS: LEVOTHYROXINE SODIUM 75 MCG TABLET PO SCH (05:49)
[2018-05-21 07:42] LABS: Basophils # (auto) 0.02 K/uL (0-0.2); Basophils % (auto) 0.3 %; Eosinophils # (auto) 0.15 K/uL (0-0.5); Eosinophils % (auto) 2.4 %; Hematocrit (blood only) 31.6 % (42-52); Immature Granulocytes # (auto) 0.06 K/uL (0.00-0.02); Lymphocytes # (auto) 0.75 K/uL (1.2-3.4); Lymphocytes % (auto) 11.9 %; Mean Corpuscular Hgb Conc 34.8 g/dL (32-36); Mean Corpuscular Volume 88.8 fL (80-100); Mean Platelet Volume 10.1 fL (7.4-10.4); Monocytes # (auto) 0.53 K/uL (0.11-0.59); Monocytes % (auto) 8.4 %; Neutrophils # (auto) 4.77 K/uL (1.4-6.5); Platelet Count 150 K/uL (130-400); RDW Coefficient of Variation 17.2 % (11.5-14.5); Red Blood Count 3.56 M/uL (4.7-6.1); White Blood Count 6.28 K/uL (4.8-10.8)
[2018-05-21] MEDS: AMOXICILLIN/CLAVULANATE 875 MG TAB PO SCH ×2 (07:58→16:40)
[2018-05-21] MEDS: MEGESTROL ACETATE SUSP 400 MG/10 ML UDC PO SCH ×2 (07:58→19:54)
[2018-05-21 08:14] LABS: BUN Creatinine Ratio 25.2 (10-20); Creatinine Clr Calc Pharmacy 62.1 ml/min; Est GFR (African American) 81.3; Est GFR (Non-African American) 70.1; Magnesium 2.1 mg/dl (1.8-2.4); Phosphorus 2.9 mg/dl (2.5-4.9); Potassium 3.8 mmol/L (3.5-5.1)
[2018-05-21] MEDS ORDERED: FUROSEMIDE 40 MG in SYRINGE 0 ML IV ONE (11:30)
--- NOTE | 2018-05-21 11:30 | Cardiology Progress Note ---
Date of Service May 21, 2018 Assessment & Plan (1) Acute on chronic systolic (congestive) heart failure: Patient appears hypervolemic and his body weight is still 4 to 5 Kg above his "dry weight". Patient's BPs remain borderline but he is asymptomatic. Patient ambulated yesterday and was out of bed for approximately 5 hours -- and he did not have any lightheadedness, dizziness, or near syncope. He still has some orthopnea, but his breathing while upright and when walking is tolerable / close to baseline. -- Hold Dobutamine for now. -- Give IV Lasix 40 mg x 1 dose now and monitor HR/BP after receiving it. -- If patient tolerates IV Lasix without symptomatic hypotension -- send home on oral Lasix. -- Resume Carvedilol when BP allows -- we will likely restart as an outpatient. -- Resume Lisinopril as an outpatient after BP is adequate. -- Monitor daily I&O's, body weights. -- Follow up at [facility] within 2 to 3 days of discharge. Supervising Physician Co-Signing Physician Notes Patient seen and examined. Discussed with Mr. davis. Agree with above. Subjective Mr. Rojas is an 83-year-old male with a history of an Idiopathic Cardiomyopathy (EF=15% to 20%) s/p Bi-V AICD, Chronic Systolic CHF, Permanent Atrial Fibrillation s/p A-Fib Ablation 2005 (on Warfarin / Carvedilol), and Dyslipidemia who was admitted to [facility] on 05/16/2018 complaining of general achiness, weakness, abdominal bloating, poor appetite, vomiting x 2, leg edema, dyspnea, and hypotension. His hypotension and CHF symptoms required Dobutamine Drip -- initially at 21 mcg/Kg/min and he is now down to 2.5 mcg/Kg/min. Fortunately his SBP's are still predominantly in the 90's and low 100's. Patient was out of bed for 5 hours yesterday, and was ambulating in his room -- He did not have any lightheadedness or dizziness. He feels that his breathing is at baseline overall, but he still experiences orthopnea. His body weight is also about 4 to 5 Kg above his dry weight. He denies any chest pain or discomfort. Physical Exam 2 Vital Signs (Past 24 Hours): Last Vital Signs Temp 37.1 C 05/21/18 11:00 Pulse 87 05/21/18 11:00 Resp 16 05/21/18 11:00 BP 105/67 05/21/18 11:00 Pulse Ox 97 05/21/18 11:00 Physical Exam: General: Patient in no acute distress. HEENT: Head is atraumatic, normocephalic. EOMs intact. Sclerae anicteric. Facies symmetric. No perioral cyanosis. Neck: No JVD. Carotid upstrokes +2 bilaterally without bruits. JVP is approximately 1/[address] to the angle of the jaw lying at a 30 degree angle. Chest and Lungs: Mildly diminished breath sounds in bilateral bases, no rales or wheezes. CVS: S1 and S2 are irregularly irregular with a controlled V rate. PMI is laterally displaced. No abdominal aortic or renal bruits. Abdominal Exam: Abdomen is mildly distended. Bowel sounds present. No masses, organomegaly, or tenderness. Extremities: No clubbing or cyanosis. Trace pretibial edema. Intact posterior tibial and radial pulses bilaterally. Neurologic Exam: Patient is awake, alert, and oriented. Cooperative. Answers questions appropriately. Speech is clear. Normal movement in all 4 extremities. Gait pattern was not assessed. Patient is anxious to be discharged to home. Telemetry: -- Underlying rhythm is A-Fib with Bi-V pacing. Results & Data Laboratory Results Laboratory Results - last 24 hr 05/21/18 05/21/18 06:53 06:53 WBC 6.28 RBC 3.56 L Hgb 11.0 L Hct 31.6 L MCV 88.8 MCH 30.9 MCHC 34.8 RDW Std Deviation 55.0 H RDW Coeff of Thor 17.2 H Plt Count 150 MPV 10.1 Immature Gran % (Auto) 1.0 Neut % (Auto) 76.0 Lymph % (Auto) 11.9 [place] % (Auto) 8.4 Eos % (Auto) 2.4 Baso % (Auto) 0.3 Immature Gran # (Auto) 0.06 H Neut # (Auto) 4.77 Lymph # (Auto) 0.75 L [place] # (Auto) 0.53 Eos # (Auto) 0.15 Baso # (Auto) 0.02 Sodium 137 Potassium 3.8 Chloride 108 H Carbon Dioxide 21 Anion Gap 8.0 BUN 25 H Creatinine 0.99 Est Cr Clr Drug Dosing 62.1 Est GFR ( Amer) 81.3 Est GFR (Non-Af Amer) 70.1 BUN/Creatinine Ratio 25.2 H Glucose 80 Calcium 8.0 L Phosphorus 2.9 Magnesium 2.1 Medications Administered Active Medications Generic Name Dose Route Start Last Admin Trade Name Freq PRN Reason Stop Dose Admin Amoxicillin/Clavulanate Potassium 1 tab 05/19/18 17:00 05/21/18 07:58 Augmentin 875mg PO 05/24/18 16:59 1 tab BIDM LENNY Administration Dobutamine HCl/Dextrose 500 mg in 250 mls @ 6.998 mls/hr 05/17/18 08:05 05/21 07:02 Dobutamine / D5w IV 06/16/18 08:04 5 mcg/kg/min .Q24H LENNY 14 mls/hr Titration Protocol 2.5 MCG/KG/MIN Levothyroxine Sodium 75 mcg 05/18/18 06:30 05/21/18 05:49 Synthroid PO 06/17/18 06:29 75 mcg DAILYBB LENNY Administration Megestrol Acetate 400 mg 05/19/18 21:00 05/21/18 07:58 Megace PO 06/18/18 20:59 400 mg Q12 LENNY Administration Ondansetron HCl 4 mg 05/17/18 09:06 05/17/18 09:20 Zofran IV 06/16/18 09:05 4 mg Q6H PRN Administration Nausea Warfarin Sodium 2.5 mg 05/17/18 16:00 Coumadin PO 06/16/18 15:59 DAILY@1600 [facility]
--- NOTE | 2018-05-21 13:37 | Hospitalist Progress Note ---
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 AICD in place. Was started on dobutamine on admission due to low BPs. Weaned and stopped on 05/21 with Lasix restarted. - Off dobutamine gtt as of 05/21 - Holding beta-neha & ACEi for low blood pressure - Given Lasix 40mg IV x 1 by cardiology on 05/21 (2) Atrial fibrillation: Patient with PFO - s/p ablation, pacer in place. Patient anticoagulated with Coumadin. - Holding Coreg for low BP - HR within acceptable range - INR was 3.5 on 05/19 - Holding warfarin at this time (3) Abnormal LFTs: AST/ALT were initially mildly elevated at 60/45 on admission (05/16); however, they trended down to normal. Tbili still elevated at 3.0 on 05/19, but stable. Likely hepatic congestion from his cardiac disease. - Trend LFTs (4) Chronic kidney disease, stage 3a: Baseline Cr is ~1.3. It was 2.8 on admission due to cardiorenal syndrome/ ATN from his hypotension. - Cr down to baseline - Monitor Cr (5) BPH (benign prostatic hyperplasia): History of BPH with severe urinary retention as well as hematuria. - Walton in place as of admission (05/16); removed on 05/20. - Consider urology evaluation if he retains after Walton removal (6) UTI (urinary tract infection): Augmentin started on 05/19 for concern for UTI. - Continue Augmentin (End date: 05/26) (7) Hypothyroidism: TSH was 10.0 and FT4 was 1.1 on 05/16. Started on Synthroid. - Continue Synthroid 75 mcg daily. (8) DVT prophylaxis: On warfarin for his afib Subjective 83yo M w/ hx of ICM with low EF who presented with fatigue. This morning, he is in a better mood, but somewhat downcast about his poor prognosis. Reports no fevers/chills, chest pain, shortness of breath, abdominal pain, nausea, or vomiting. Physical Exam 2 Vital Signs (Past 24 Hours): Last Vital Signs Temp 37.1 C 05/21/18 11:00 Pulse 87 05/21/18 11:00 Resp 16 05/21/18 11:00 BP 102/63 05/21/18 12:37 Pulse Ox 97 05/21/18 11:00 Constitutional: WD/WN, vitals as above + thin; no acute distress Eyes: EOM intact bilaterally; no conjunctival abnormality ENMT: external ear and nose normal, oropharynx normal Neck: trachea midline, no thyromegaly normal visual inspection Respiratory: normal respiratory effort, lungs clear to auscultation no respiratory distress Cardiovascular: RRR, no murmur, no edema Gastrointestinal (Abdomen): Inspection/Auscultation: abdomen normal to inspection; abdomen not distended Musculoskeletal: no cyanosis or clubbing, extremities motor strength 5/5 Skin: no rashes, warm and dry Neurologic: moves all extremities and awake Psychiatric: Orientation: alert, oriented to person and cooperative _ (1) Hypothyroidism Hypothyroidism type: unspecified Qualified Code(s): E03.9 - Hypothyroidism, unspecified
[2018-05-21] MEDS ORDERED: ACETAMINOPHEN 325 MG TAB PO PRN (16:12)
--- NOTE | 2018-05-21 16:15 | Palliative Care Progress Note ---
Date of Service May 21, 2018 Assessment & Plan (1) Palliative care encounter: Patient is an 83-year-old male with a history of idiopathic cardiomyopathy -with an EF of 15-20%, status post biventricular AICD, chronic systolic heart failure, A. fib-status post ablation, and CKD who presented to the ER on 05/16 with increased abdominal bloating with pain, increased lower extremity edema, loss of appetite and decreased p.o. intake. Patient's initial blood pressure in the emergency room was 84/57, sats were 98% on room air, patient's creatinine was 2.83-baseline approximately 1.2. Patient was admitted, put on dobutamine and diuresed. Patient seen and examined, his was not at bedside. Patient hopes to return home today or tomorrow-feels he is nearly back to his prior baseline. Offered patient outpatient follow-up if his condition or health changes to discuss further plans -Idiopathic cardiomyopathy-EF 15-20%-initiate discussion regarding goals of care-patient at this time would plan to return to the hospital if needed- discussed hospice care when coming to the hospital is no longer beneficial -Acute on chronic CHF-patient improving with dobutamine and gentle diuresis- patient reports he is back to his baseline lower extremity edema. -Will need to have further conversations once cardiology is able to give the patient a more defined prognosis-this can be done as an outpatient -At this point patient wishes to remain a FULL CODE. (2) Cardiomyopathy: Continue medical management as per cardiology (3) Acute on chronic systolic (congestive) heart failure: Abdominal bloating and lower extremity edema improved with dobutamine and gentle diuresis (4) Acute kidney injury: Improving-creatinine 2.83 on admission-down to 0.9 today, (5) Lower extremity edema: Patient's lower extremity edema at baseline-1+ pitting edema to just below midshin Subjective Patient is awake and alert, no acute distress. Patient denies fever, chills, chest pain, increased shortness of breath, or GI issues. Patient states his lower extremity edema is at his prior baseline. Patient given information to set up outpatient appointment if he wishes to follow-up with palliative care. Physical Exam 2 Vital Signs (Past 24 Hours): Last Vital Signs Temp 37.0 C 05/21/18 15:07 Pulse 83 05/21/18 15:07 Resp 18 05/21/18 15:07 BP 96/64 L 05/21/18 15:07 Pulse Ox 97 05/21/18 15:07 Constitutional: Appears comfortable Eyes: EOMI ENMT: Mild [place] Respiratory: Unlabored Cardiovascular: Irregular Gastrointestinal (Abdomen): Distended, soft, nontender Musculoskeletal: Pedal edema improved Skin: No increased pallor Neurologic: Alert and oriented x4 Psychiatric: Appropriate mood Time Spent Attending Total time spent 25 minutes with greater than 50% of the time spent at bedside discussing patient's goals of care as well as follow-up after discharge.
[2018-05-22] MEDS: LEVOTHYROXINE SODIUM 75 MCG TABLET PO SCH (05:43)
[2018-05-22 07:00] VITALS: O2SAT 100
[2018-05-22] MEDS: MEGESTROL ACETATE SUSP 400 MG/10 ML UDC PO SCH (08:15)
[2018-05-22] MEDS: AMOXICILLIN/CLAVULANATE 875 MG TAB PO SCH (08:15)
[2018-05-22 09:43] LABS: Hematocrit (blood only) 35.4 % (42-52); Hemoglobin 12.1 g/dL (14.0-18.0); Mean Corpuscular Hgb Conc 34.2 g/dL (32-36); Mean Corpuscular Volume 89.6 fL (80-100); Platelet Count 175 K/uL (130-400); RDW Coefficient of Variation 17.7 % (11.5-14.5); RDW Standard Deviation 57.6 fL (36.4-46.3); Red Blood Count 3.95 M/uL (4.7-6.1); White Blood Count 6.61 K/uL (4.8-10.8)
[2018-05-22 09:54] LABS: INR 1.9 (0.9-1.1); Prothrombin Time 18.7 Seconds (9.0-12.0)
[2018-05-22 10:15] LABS: Albumin Level 2.8 gm/dl (3.4-5.0); BUN Creatinine Ratio 22.4 (10-20); Calcium 8.4 mg/dl (8.5-10.1); Creatinine Clr Calc Pharmacy 58.4 ml/min; Est GFR (African American) 68.5; Est GFR (Non-African American) 59.1; Magnesium 2.2 mg/dl (1.8-2.4); Potassium 4.1 mmol/L (3.5-5.1)
[2018-05-22 10:17] LABS: Albumin Globulin Ratio 0.7 (0.9-2); Bilirubin,Total 2.9 mg/dl (0.2-1); Globulin 4.3 gm/dl (2.5-4.0); Total Protein 7.1 gm/dl (6.4-8.2)
[2018-05-22 11:11] VITALS: TEMP 98.1
[2018-05-22 12:49] VITALS: BP 97/65; PULSE 82
--- NOTE | 2018-05-22 20:28 | Discharge Summary ---
Date of Service May 22, 2018 Admission HPI Per Admitting Provider Mr. Rojas is an 83yo male with longstanding history of dilated NICM thought to be secondary to tachycardia from uncontrolled AF, severely reduced EF < 20%. Patient presents today with complaints of 5 days of fatigue, lethargy, weakness, decreased exercise tolerance as well as muscle soreness, nausea with one episode of nonbloody/nonbilious vomiting. He has diffuse abdominal distention and progression of bilateral LE edema and orthopnea. He presents to the ER today as a "Code Sepsis" secondary to hypotension on arrival - BP 84/57. He was administered 2L NSS with no improvement in blood pressure. Patient denies fevers, chills, cough, SOB. Denies diarrhea/constipation/abdominal pain. Denies dysuria/back pain. He states he just feels "sick". ER Course: NSS x 2 L, bedside US performed by ER attending February 11, 2003 - CARDIAC CATHETERIZATION - no occlusive CAD, dilated LV with EF 15%, severe global hypokinesis March 13, 2006 - PULMONARY VEIN ISOLATION [place] [facility] - [place] [facility] of external defibrillator due to low EF and presence of NSVT December 28, 2011 - BiV ICD implantation October 09, 2017 - ECHO- EF less than 20%, significant four-chamber dilation, global thinning of LV velasquez with global hypokinesis, moderate MR, moderate TR, dilated IVC, bilateral pleural effusions Principal Diagnosis Heart failure Discharge Exam Constitutional WD/WN, vitals as above + thin, + cachectic and + physical limitations; no acute distress Eyes EOM intact bilaterally; no conjunctival abnormality ENMT external ear and nose normal, oropharynx normal Neck trachea midline, no thyromegaly normal visual inspection Respiratory normal respiratory effort, lungs clear to auscultation no respiratory distress Cardiovascular RRR, no murmur, no edema Gastrointestinal (Abdomen) Inspection/Auscultation: abdomen normal to inspection; abdomen not distended Musculoskeletal no cyanosis or clubbing, extremities motor strength 5/5 Skin no rashes, warm and dry Neurologic moves all extremities and awake Psychiatric Orientation: alert, oriented to person and cooperative Discharge Data Allergies Allergy/AdvReac Type Severity Reaction Status Date / Time atorvastatin Allergy Unknown GI SYMPTOMS Verified 05/16/18 15:45 simvastatin Allergy Unknown GI SYMPTOMS Verified 05/16/18 15:45 Consultations 05/16/18 14:38 ED Decision to Admit Stat 05/16/18 16:55 Consult Case Management - Discharge Planning Routine Consult Director Of Housing And Energy Services Routine 05/17/18 11:55 Consult Cardiology Routine 05/18/18 11:06 Consult Palliative Care Routine 05/19/18 12:07 Consult Palliative Care Routine Ordered Studies 05/16/18 14:35 US gallbladder Stat Hospital Course (1) NICM (nonischemic cardiomyopathy): 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 AICD in place. Was started on dobutamine on admission due to low BPs. Weaned and stopped on 05/21 with Lasix restarted. - Off dobutamine gtt as of 05/21 - On discharge, was restarted on low-dose Toprol XL to reduce effect on blood pressure. (Compared to his prior Coreg). - Given Lasix 40mg IV x 1 by cardiology on 05/21 - On discharge, BPs were ~100/60 - Discharged on home Lasix to prevent volume overload. (2) Atrial fibrillation: Patient with PFO - s/p ablation, pacer in place. Patient anticoagulated with Coumadin. - Holding Coreg for low BP - HR within acceptable range - INR was 3.5 on 05/19 and warfarin was held - Down to 1.9 on discharge, and warfarin resumed on discharge. (3) Abnormal LFTs: AST/ALT were initially mildly elevated at 60/45 on admission (05/16); however, they trended down to normal. Tbili still elevated at 3.0 on 05/19, but stable. Likely hepatic congestion from his cardiac disease. - Recheck LFTs at next office visit. (4) Chronic kidney disease, stage 3a: Baseline Cr is ~1.3. It was 2.8 on admission due to cardiorenal syndrome/ ATN from his hypotension. - Cr down to baseline by discharge (5) BPH (benign prostatic hyperplasia): History of BPH with severe urinary retention as well as hematuria. - Had Walton removed the day prior to discharge, but had to have it re-inserted for continued retention. Willing to be discharged with a Walton and restart his home Flomax. Will try to have the Walton removed at his next office visit. Will follow up with urology. (6) UTI (urinary tract infection): Augmentin started on 05/19 for concern for UTI. Urine culture was positive. Was discharged on Augmentin (End date: 05/26) given he also had to be discharged with a Walton in place. (7) Hypothyroidism: TSH was 10.0 and FT4 was 1.1 on 05/16. Started on Synthroid by admitting doctor, but given his normal FT4, he actually qualifies as "subclinical" hypothyroidism. Unless he has symptoms, guidelines indicate not to treat. He did not endorse symptoms to me, so I stopped the Synthroid. He can follow up with his PCP for repeat testing in 4-6 weeks. (8) DVT prophylaxis: On warfarin for his afib Total Time Total Time Spent Total Time Spent (In Minutes): 45 Total Time Includes: Examination of the Patient, Discharge Planning, Medication Reconciliation and Communication With Other Providers Discharge Plan Discharge Items Patient Disposition: Home - Self-Care Reason For Visit: HYPOTENSION Discharge Diagnosis: Heart failure Condition: Fair Discharge Goals: Decrease discomfort and Improve function Activity: Resume your previous activity Non-emergency contact: Primary Care Provider and [place] Call non-emergency contact if: your symptoms worsen Follow-up/Referrals: Marcio Nixon MD [Hospitalist] - (Please follow up with the urology office for your Walton.) Fernando Amin MD [Physician] - (Please see Dr. Amin or Edmundo Echavarria in the office in a week.) Nuvia Lima MD [Primary Care Provider] - 05/27/18 11:30 am (Please, follow up at [facility] with Dr. Lima on SundayMay 27 at 11:30 am. *If you need to change this appointment, call the office at [phone].) Diet: Heart Healthy and Low Sodium (2gm) Fluids: 1800ml (7 cups) Addtl Provider Instructions: Mr. Rojas, you were admitted with heart failure. Your blood pressure was low, and we had to give you an IV medication to keep it high enough. We were able to slowly stop it, and restarted some of your heart medications. Please follow up with the CHF clinic and Dr. Amin or Edmundo Echavarria to get continued care for your heart issues. You were retaining urine in the hospital, so we kept your Walton in on discharge. Please restart your home Flomax when you get home, and drain your bag as needed. Please finish the antibiotics we started to help prevent any UTI and treat the positive urine culture we found when you first were admitted to the hospital. Please get the last 3 days worth at your pharmacy. Call your Primary Care doctor if any of the following symptoms or problems start or get worse: * Shortness of breath or difficulty breathing * Wake up at night short of breath * Chest pain * Cough * Swelling of your hands, feet, or legs * More fatigued or tired with your normal activity * Palpitations - sudden fast heart beats WEIGHT * Weigh yourself every morning after using the bathroom. * Use the same scale. * Wear the same amount of clothing. * Write your weight down on a chart. * Call your Primary Care doctor if you gain more than 2-3 pounds in 1-2 days. MEDICATIONS * Use this discharge instruction sheet for medication instructions. * Take your medications at the time your doctor ordered. * Do not skip a dose of your medicines. * If you miss a dose of medicine, take it as soon as possible, but DO NOT DOUBLE A DOSE. * Read your medicine information when you get home. * Know all of the side effects of your medicine. If in doubt, ask your pharmacist * Call your Primary Care doctor's office if you have any side effects. * Be sure all of your doctors know what medicine and herbs you take (including cold, flu, and herbal medicine). Take the following with you to your follow-up doctor appointments: * Weight Chart * Medication List * List of questions Do not drink excessive alcohol, beer or wine. FOLLOW UP WITH HEART FAILURE PROGRAM/[facility]ER APPROXIMATELY 1 WEEK FROM DISCHARGE. [phone] Prescriptions: New amoxicillin-pot clavulanate 875-125 mg Tablet 1 tab PO BIDM Qty: 6 RF: 0 metoprolol succinate 25 mg tablet extended release 24 hr 12.5 mg PO DAILY Qty: 30 RF: 0 Continue warfarin [Jantoven] 5 mg tablet 2.5 mg PO QPM RF: 0 tamsulosin 0.4 mg Capsule 0.4 mg PO BID RF: 0 furosemide 40 mg tablet 40 mg PO DAILY RF: 0 Discontinued carvedilol 25 mg tablet 25 mg PO BID RF: 0 lisinopril 10 mg tablet 5 mg PO QAM Qty: 15 RF: 0 Visit Report Forms: My [facility] Digital Perception Portal Stand-Alone Forms: My [facility] [employer] Discharge Orders: Discharge Order (Routine); Ordered 05/22/18 Ordered By: Michael Marcos Admission Data Admit Date/Time: 05/16/18 15:40 Attending Provider: Michael Marcos Admit Provider: Chel Martin Primary Care Provider: Nuvia Lima Other Providers: Mandy Villar ; Jayesh Hameed ; Evette Rayo ; Cynthia Huynh ; Rosio Valentin ; Michael Marcos Service: Intensive Care Unit Other Interventions: Discharge Summary Assessment (RN) Last Done: 05/22/18 12:47 DC Date/Time DO NOT enter until pt leaves facility: 05/22/18 13:39
== END 2018-05-22 13:39 | disposition home or self-care (01) | DRG 291 ==
LOC: ED 12:18 → 1E 15:40 → SUATTDRO 15:40 → 2S 05-19 17:51
DX: E03.9 Hypothyroidism, unspecified; N18.3 Chronic kidney disease, stage 3 (moderate); N17.9 Acute kidney failure, unspecified; I47.2 Ventricular tachycardia; I42.9 Cardiomyopathy, unspecified; I50.23 Acute on chronic systolic (congestive) heart failure; N40.0 Benign prostatic hyperplasia without lower urinary tract symptoms; I95.9 Hypotension, unspecified; Z79.01 Long term (current) use of anticoagulants; N39.0 Urinary tract infection, site not specified; I13.0 Hypertensive heart and chronic kidney disease with heart failure and stage 1 through stage 4 chronic kidney disease, or unspecified chronic kidney disease; Z51.5 Encounter for palliative care; I48.91 Unspecified atrial fibrillation

== ENCOUNTER 2018-08-22 10:50 | Inpatient (IN) ==
--- NOTE | 2018-08-22 11:30 | XRay Report ---
XR chest 1V portable CLINICAL HISTORY: Dyspnea COMPARISON STUDY: 05/16/2018 FINDINGS: Cardiomegaly and progressive from the prior study. Small bilateral pleural effusions. Promi nent pulmonary vasculature. Permanent cardiac pacemaker/defibrillator. IMPRESSION: Congestive heart failure. The above report was generated using voice recognition software. It may contain grammatical, syntax or spelling errors. Electronically signed by: Tomi Rivas M.D. 08/22/2018 11:29 AM
[2018-08-22 11:49] LABS: Basophils # (auto) 0.02 K/uL (0-0.2); Basophils % (auto) 0.3 %; Eosinophils # (auto) 0.06 K/uL (0-0.5); Hematocrit (blood only) 41.5 % (42-52); Hemoglobin 14.5 g/dL (14.0-18.0); Immature Granulocytes # (auto) 0.01 K/uL (0.00-0.02); Immature Granulocytes % (auto) 0.2 %; Lymphocytes # (auto) 0.76 K/uL (1.2-3.4); Lymphocytes % (auto) 12.6 %; Mean Corpuscular Hgb Conc 34.9 g/dL (32-36); Mean Corpuscular Volume 90.2 fL (80-100); Mean Platelet Volume 10.3 fL (7.4-10.4); Monocytes # (auto) 0.61 K/uL (0.11-0.59); Monocytes % (auto) 10.1 %; Neutrophils # (auto) 4.55 K/uL (1.4-6.5); Neutrophils % (auto) 75.8 %; Platelet Count 131 K/uL (130-400); RDW Coefficient of Variation 19.4 % (11.5-14.5); RDW Standard Deviation 62.3 fL (36.4-46.3); White Blood Count 6.01 K/uL (4.8-10.8)
[2018-08-22 12:11] LABS: Creatinine Clr Calc Pharmacy 52.1 ml/min; Est GFR (African American) 59.6; Est GFR (Non-African American) 51.4; Potassium 3.6 mmol/L (3.5-5.1)
[2018-08-22 12:19] LABS: Albumin Globulin Ratio 0.7 (0.9-2); Bilirubin,Total 4.2 mg/dl (0.2-1); Globulin 4.3 gm/dl (2.5-4.0); Total Protein 7.3 gm/dl (6.4-8.2)
[2018-08-22] MEDS ORDERED: FUROSEMIDE 40 MG/4 ML VIAL IV STA (12:34)
[2018-08-22] MEDS ORDERED: ASPIRIN CHEW 324 MG PO STA (12:34)
--- NOTE | 2018-08-22 12:45 | History & Physical Report ---
Date of Service August 22, 2018 Assessment & Plan (1) CHF (congestive heart failure): Pt has a history of chronic systolic heart failure with EF of 20%, he sees sona for pacemaker, has had trial of b neha in the last few months and has had pacer adjustment, admits to not checking his weights at home and eating whatever his prepares. Does have chronic CXR changes, massive LE edema and elevated trop, but does not have JVD or hypoxia, does have minor rales on exam. will continue IV lasix and follow for lower extremity improvement as does have some new stage 2 ulcers on lateral right ankle. Will check troponin in am but feel its elevation is demand ischemia Patient is underlying atrial fibrillation he is on Coumadin for secondary thromboembolic prevention (2) CKD (chronic kidney disease): Pt has stable BUN/Cr will follow with diuresis (3) Status post placement of cardiac pacemaker: with recent adjustment will consult Dr Amin (4) BPH (benign prostatic hyperplasia): pt has no urinary symptoms but due to his complaints of weakness of his lower extremities, will continue flomax and proscar and check ua (5) Abnormal LFTs: Pt has had elevated bili in the past, this was felt to be secondary to congestive hepatopathy, this is slightly higher than last time, will repeat. (6) DVT prophylaxis: Pt is on daily coumadin, INR is near 2, will continue History of Present Illness Primary Care Provider: NO PCP Mr. Rojas is an 83-year-old male with a history of an Idiopathic Cardiomyopathy (EF=15% to 20%) s/p Bi-V AICD, Chronic Systolic CHF, Permanent Atrial Fibrillation s/p A-Fib Ablation 2005 (on Warfarin / Carvedilol), patient states he had his called the ambulance today as he was feeling increasing weakness of his lower extremities and difficulty getting out of his chair. The patient suffers from the above listed heart failure with massive lower extremity edema and most recently has developed some ulcerations on his right lateral ankle. He says he is having some disagreement with his and she is complaining that she does not know how to take care of his ankle wound. When please the patient regarding his weights if he monitors them he says no he does not like numbers and I asked about eating a low-salt diet he says he eats whatever his gives him. Upon evaluation in the emergency department physician was concerned he may have heart failure however despite having an abnormal chest x-ray his oxygen saturations were 98% on room air on intake he was in a paced rhythm blood pressure was stable on my examination had very little JVD. The patient also states he is able lay flat in bed at night. He states that his legs are about the usual size for him to the left one may be slightly bigger than it has been typically. Because of the massive lower extremity edema difficulty ambulation and elevation of his troponin as well as a likely congestive hepatopathy with bilirubin being elevated the patient will be brought in our facility for wound care attention attempts of diuresis and reevaluation by cardiology Allergies Allergy/AdvReac Type Severity Reaction Status Date / Time atorvastatin Allergy Unknown GI SYMPTOMS Verified 08/22/18 11:26 simvastatin Allergy Unknown GI SYMPTOMS Verified 08/22/18 11:26 Home Medications Home Medications Medication Instructions Recorded Confirmed Type furosemide 40 mg PO DAILY 05/16/18 08/22/18 History tamsulosin 0.4 mg PO BID 05/16/18 08/22/18 History finasteride 5 mg PO DAILY 08/22/18 08/22/18 History warfarin 2.5 mg PO DAILY 08/22/18 08/22/18 History Past Med/Surg History Family History Other Cancer Heart attack Heart disease No pertinent family history Social History Preferred Language: Kazakh Communication Ability: Effective 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: No Beliefs That Will Affect Care: None marital status: Current Living Situation: Spouse Other Information That Helps Us Care for You: No Feels Safe at Home: Yes Safety Concerns: Feels Safe At This Time Smoking Status: Never smoker Hx Alcohol Use: No Hx Substance Use: No Review of Systems ROS: Patient is dark skin tone almost as a dialysis patient would be he is fatigued he is irritated and angry No double vision blurry vision No problems with speech or swallowing No palpitations, chest pain or pressure Patient states that at rest his breathing is easy but he becomes dyspneic with exertion No abdominal pain nausea vomiting diarrhea No burning urine urine frequency or changes in color patient had a Walton catheter during his last admission which was since removed Patient has focal pain to his mid whitehead anteriorly Open areas to his right lateral ankle No unusual bruising or bleeding No focused back pain no radicular discomfort but he does have weakness and cannot get out of a chair easily No changes in memory or confusion Physical Exam Vital Signs (Past 24 Hours): Last Vital Signs Temp 36.5 C 08/22/18 10:50 Pulse 81 08/22/18 10:50 Resp 16 08/22/18 10:50 BP 108/74 08/22/18 10:50 Pulse Ox 98 08/22/18 10:50 The patient appeared chronically ill Vital signs as documented. He was not hypoxic on room air Head exam is unremarkable. normocephalic, atraumatic Neck is without jugular venous distension, thyromegaly, or lymphademopathy Lungs he has some mild rales at the base dullness towards the left base good air movement Cardiac exam reveals a tachycardic rhythm with a systolic murmur and a displaced lateral enlarged PMI Abdominal exam reveals normal bowel sounds, no masses, I could not appreciate hepatomegaly but the patient may have had some HJR Extremities are massively edematous bilaterally capillary refill is preserved to his toes Neurologic exam is A&Ox3, no focal deficits, strength is equal bilateral Psychologically seems neither anxious or depressed Skin is warm Dry patient has no changes of chronic venous stasis however there is 3 dime to brigid shaped ulcerations on the right lateral ankle which are through the first layer skin Aquacel was applied by ER nursing Results & Data Diagnostic Findings Chest x-ray is read as progressive CHF. Patient is a large cardiomegaly he has a device in his left upper chest which looks to be his pacemaker and he does have some mild pulmonary edema seen ECG Additional Comments: Patient is a ventricularly paced rhythm
[2018-08-22 12:48] LABS: Troponin I 0.084 ng/ml (0-0.045)
[2018-08-22 13:05] LABS: INR 1.6 (0.9-1.1); Partial Thromboplastin Ratio 1.2; Partial Thromboplastin Time 32.5 Seconds (21.0-31.0); Prothrombin Time 15.9 Seconds (9.0-12.0)
[2018-08-22 14:14] LABS: Appearance Urine Slightly Cloudy (Clear); Color Urine Orange; Protein Urine Positive (Negative)
[2018-08-22 14:15] LABS: Specific Gravity Urine 1.019 (1.000-1.030)
[2018-08-22 14:19] LABS: Epithelial Cell Urine >30 /lpf (0-5); WBC Urine >30 /hpf (0-5)
[2018-08-22 14:22] LABS: Bacteria Urine 4+ (Negative)
--- NOTE | 2018-08-22 14:45 | Emergency Department Note ---
Entered by Darcy Meredith acting as a scribe for Patrick Clay DO History of Present Illness General Chief complaint: Edema To Extremity Time Seen by Provider: 08/22/18 10:51 Source: patient and EMS Mode of arrival: EMS History of Present Illness Provider complaint: leg swelling Onset (ago): month(s) 5 Location: lower extremity Pain Consistency: + other (persistent) Quality: + other (persistent) Associated symptoms: + other (ankle blisters, abdominal swelling, shortness of breath) The patient is an 83 year old male who presents to the Emergency Room with complaints of persistent leg swelling beginning 5 months ago. He notes blisters around his ankles, which are seeping fluid. The patient reports abdominal swelling. He states he experiences shortness of breath when walking. The patient notes he did not take his Lasix this morning, and is unsure if he took them yesterday. He sees Dr. Gil's office for cardiology. Patient is that he has been intermittently taking his Lasix. He denies any chest pain. No other exac erbating or remitting factors. Home Medications Home Medications Medication Instructions Recorded Confirmed Type furosemide 40 mg PO DAILY 05/16/18 08/22/18 History tamsulosin 0.4 mg PO BID 05/16/18 08/22/18 History finasteride 5 mg PO DAILY 08/22/18 08/22/18 History warfarin 2.5 mg PO DAILY 08/22/18 08/22/18 History Allergies Allergy/AdvReac Type Severity Reaction Status Date / Time atorvastatin Allergy Unknown GI SYMPTOMS Verified 08/22/18 11:26 simvastatin Allergy Unknown GI SYMPTOMS Verified 08/22/18 11:26 Past Med/Surg History Family History Other Cancer Heart attack Heart disease No pertinent family history Social History Preferred Language: Japanese Communication Ability: Effective Group Therapy Counselor Required: No Beliefs That Will Affect Care: None marital status: Current Living Situation: Spouse Other Information That Helps Us Care for You: No Feels Safe at Home: Yes Safety Concerns: Feels Safe At This Time Smoking Status: Never smoker Hx Alcohol Use: No Hx Substance Use: No Review of Systems See HPI for pertinent positives & negatives. and A total of 10 systems reviewed and were otherwise negative Physical Exam Vital Signs Vital Signs - 24 hr 08/22/18 10:50 08/22/18 11:05 08/22/18 12:16 Temperature 36.5 C Temperature Source Oral Sepsis Recent Fever Within 48 Hours No Sepsis New/Unexplained Change in Mental Status No Sepsis Action Taken by Nursing No Action Required Pulse Rate 81 84 93 H Pulse Rate from SpO2 Sensor 80 Pulse Rhythm Regular Respiratory Rate 16 7 L 3 L Respiratory Effort / Characteristics Non-Labored Spontaneous Respiratory Depth Normal Respiratory Pattern Regular Blood Pressure 108/74 108/74 108/74 Blood Pressure Mean 85 85 85 Pulse Oximetry 98 97 95 Oxygen Delivery Method Room Air Room Air Room Air 08/22/18 13:11 08/22/18 13:17 08/22/18 13:30 Temperature Temperature Source Sepsis Recent Fever Within 48 Hours Sepsis New/Unexplained Change in Mental Status Sepsis Action Taken by Nursing Pulse Rate 92 H 80 Pulse Rate from SpO2 Sensor 92 H 119 H Pulse Rhythm Respiratory Rate 28 H 31 H Respiratory Effort / Characteristics Respiratory Depth Respiratory Pattern Regular Blood Pressure 107/68 122/72 Blood Pressure Mean 81 88 Pulse Oximetry 96 95 Oxygen Delivery Method Room Air Room Air Room Air 08/22/18 14:01 08/22/18 14:08 Temperature Temperature Source Sepsis Recent Fever Within 48 Hours Sepsis New/Unexplained Change in Mental Status Sepsis Action Taken by Nursing Pulse Rate 91 H 91 H Pulse Rate from SpO2 Sensor Pulse Rhythm Respiratory Rate 24 24 Respiratory Effort / Characteristics Respiratory Depth Respiratory Pattern Blood Pressure 95/54 L 95/54 L Blood Pressure Mean 67 Pulse Oximetry 94 94 Oxygen Delivery Method Room Air Room Air GENERAL: Sitting up in bed, chronically ill-appearing, no distress, non-toxic. EYE EXAM: normal conjunctiva. OROPHARYNX: no exudate, no erythema, lips, buccal mucosa, and tongue normal and mucous membranes are moist NECK: supple, no nuchal rigidity, no adenopathy, non-tender LUNGS: Diminished at bases. Normal chest wall mechanics HEART: no murmurs, S1 normal and S2 normal ABDOMEN: abdomen soft, non-tender, normo-active bowel, sounds, no masses, no rebound or guarding. BACK: Back is symmetrical on inspection and there is no deformity, no midline tenderness, no CVA tenderness. SKIN: no rashes and no bruising UPPER EXTREMITIES: upper extremities are grossly normal. LOWER EXTREMITIES: Pitting edema tracking up to abdomen, +4 NEURO EXAM: Normal sensorium, cranial nerves II-XII grossly intact, normal speech, no gross weakness of arms, no gross weakness of legs. Course ED COURSE: Vital signs were reviewed and showed no abnormalities. The patients medical record was reviewed The above diagnostic studies were performed and reviewed. ED treatments and interventions as stated above. 1051: The patient was evaluated in room C10. A complete history and physical examination was performed. 1237: I reviewed the patient's case with Dr. Parks, [facility] hospitalist. He will evaluate the patient for further management. 1238: Upon reevaluation, the patient is resting. I discussed my findings with the patient and he understands and agrees with the treatment plan. Based on the patients age, coexisting illnesses, exam and lab findings the decision to treat as an inpatient was made. The patient remained stable while under my care. The patient will be evaluated for further management. Consultations Consultation #1: Dr. Parks, [facility] hospitalist. Time: 12:37 Administered Medications Discontinued Medications Aspirin (Aspirin) 324 mg PO NOW STA Stop: 08/22/18 12:35 Last Admin: 08/22/18 13:19 Dose: 324 mg Documented by: [id number] Furosemide (Lasix) 40 mg IV NOW STA Stop: 08/22/18 12:35 Last Admin: 08/22/18 13:19 Dose: 40 mg Documented by: [id number] Medical Decision Making Differential Diagnosis Etiologies such as infections, reactive airway disease, COPD, pneumonia, pleural effusion, pulmonary edema, ARDS, pneumothorax, CHF, cardiac ischemia, cardiac tamponade, dysrhythmia, anemia, pulmonary embolism, musculoskeletal, gastrointestinal process, as well as others were entertained. Medical Records Attestation: I reviewed the patient's medical records. Home Medications Current Medication List: was personally reviewed by me Laboratory Data Attestation: I reviewed the patient's lab results. Result diagrams: 08/22/18 11:40 08/22/18 11:40 Lab Results 08/22/18 08/22/18 08/22/18 Range/Units 11:40 11:40 11:40 WBC 6.01 (4.8-10.8) K/uL RBC 4.60 L (4.7-6.1) M/uL Hgb 14.5 (14.0-18.0) g/dL Hct 41.5 L (42-52) % MCV 90.2 (80-100) fL MCH 31.5 (25-34) pg MCHC 34.9 (32-36) g/dL RDW Std Deviation 62.3 H (36.4-46.3) fL RDW Coeff of Thor 19.4 H (11.5-14.5) % Plt Count 131 (130-400) K/uL MPV 10.3 (7.4-10.4) fL Immature Gran % (Auto) 0.2 % Neut % (Auto) 75.8 % Lymph % (Auto) 12.6 % [place] % (Auto) 10.1 % Eos % (Auto) 1.0 % Baso % (Auto) 0.3 % Immature Gran # (Auto) 0.01 (0.00-0.02) K/uL Neut # (Auto) 4.55 (1.4-6.5) K/uL Lymph # (Auto) 0.76 L (1.2-3.4) K/uL [place] # (Auto) 0.61 H (0.11-0.59) K/uL Eos # (Auto) 0.06 (0-0.5) K/uL Baso # (Auto) 0.02 (0-0.2) K/uL PT Cancelled INR Cancelled APTT Cancelled PTT Ratio Cancelled Sodium 137 (136-145) mmol/L Potassium 3.6 (3.5-5.1) mmol/L Chloride 103 (98-107) mmol/L Carbon Dioxide 25 (21-32) mmol/L Anion Gap 9.0 (3-11) BUN 27 H (7-18) mg/dl Creatinine 1.28 (0.6-1.4) mg/dl Est Cr Clr Drug Dosing 52.1 ml/min Est GFR ( Amer) 59.6 Est GFR (Non-Af Amer) 51.4 BUN/Creatinine Ratio 21.0 H (10-20) Glucose 95 (70-99) mg/dl Calcium 9.0 (8.5-10.1) mg/dl Total Bilirubin 4.2 H (0.2-1) mg/dl AST 32 (15-37) U/L ALT 15 (12-78) U/L Alkaline Phosphatase 122 H (45-117) U/L Troponin I 0.084 H* (0-0.045) ng/ml NT-Pro-B Natriuret Pep 8394 H (0-1800) pg/ml Total Protein 7.3 (6.4-8.2) gm/dl Albumin 3.0 L (3.4-5.0) gm/dl Globulin 4.3 H (2.5-4.0) gm/dl Albumin/Globulin Ratio 0.7 L (0.9-2) Urine Color Urine Appearance (Clear) Urine pH (4.5-7.5) Ur Specific Jeff (1.000-1.030) Urine Protein (Negative) Urine Glucose (UA) (Negative) Urine Ketones (Negative) Urine Blood (Negative) Urine Nitrite (Negative) Urine Bilirubin (Negative) Urine Urobilinogen (Negative) Ur Leukocyte Esterase (Negative) Urine RBC (0-4) /hpf Urine WBC (0-5) /hpf Ur Epithelial Cells (0-5) /lpf Urine Bacteria (Negative) 08/22/18 08/22/18 Range/Units 12:20 12:42 WBC (4.8-10.8) K/uL RBC (4.7-6.1) M/uL Hgb (14.0-18.0) g/dL Hct (42-52) % MCV (80-100) fL MCH (25-34) pg MCHC (32-36) g/dL RDW Std Deviation (36.4-46.3) fL RDW Coeff of Thor (11.5-14.5) % Plt Count (130-400) K/uL MPV (7.4-10.4) fL Immature Gran % (Auto) % Neut % (Auto) % Lymph % (Auto) % [place] % (Auto) % Eos % (Auto) % Baso % (Auto) % Immature Gran # (Auto) (0.00-0.02) K/uL Neut # (Auto) (1.4-6.5) K/uL Lymph # (Auto) (1.2-3.4) K/uL [place] # (Auto) (0.11-0.59) K/uL Eos # (Auto) (0-0.5) K/uL Baso # (Auto) (0-0.2) K/uL PT 15.9 H INR 1.6 H APTT 32.5 H PTT Ratio 1.2 Sodium (136-145) mmol/L Potassium (3.5-5.1) mmol/L Chloride (98-107) mmol/L Carbon Dioxide (21-32) mmol/L Anion Gap (3-11) BUN (7-18) mg/dl Creatinine (0.6-1.4) mg/dl Est Cr Clr Drug Dosing ml/min Est GFR ( Amer) Est GFR (Non-Af Amer) BUN/Creatinine Ratio (10-20) Glucose (70-99) mg/dl Calcium (8.5-10.1) mg/dl Total Bilirubin (0.2-1) mg/dl AST (15-37) U/L ALT (12-78) U/L Alkaline Phosphatase (45-117) U/L Troponin I (0-0.045) ng/ml NT-Pro-B Natriuret Pep (0-1800) pg/ml Total Protein (6.4-8.2) gm/dl Albumin (3.4-5.0) gm/dl Globulin (2.5-4.0) gm/dl Albumin/Globulin Ratio (0.9-2) Urine Color [place] Urine Appearance Slightly Cloudy H (Clear) Urine pH (4.5-7.5) Ur Specific Jeff 1.019 (1.000-1.030) Urine Protein Positive H (Negative) Urine Glucose (UA) (Negative) Urine Ketones (Negative) Urine Blood (Negative) Urine Nitrite (Negative) Urine Bilirubin (Negative) Urine Urobilinogen (Negative) Ur Leukocyte Esterase (Negative) Urine RBC 5-10 H (0-4) /hpf Urine WBC >30 H (0-5) /hpf Ur Epithelial Cells >30 H (0-5) /lpf Urine Bacteria 4+ H (Negative) Imaging Data Radiologist's Impression: Radiology results as stated below per my review and the radiologist's interpretation: XR chest 1V portable CLINICAL HISTORY: Dyspnea COMPARISON STUDY: 05/16/2018 FINDINGS: Cardiomegaly and progressive from the prior study. Small bilateral pleural effusions. Prominent pulmonary vasculature. Permanent cardiac pacemaker/defibrillator. IMPRESSION: Congestive heart failure. The above report was generated using voice recognition software. It may contain grammatical, syntax or spelling errors. Electronically signed by: oTmi Rivas M.D. 08/22/2018 11:29 AM ECG Data Attestation: I personally reviewed and interpreted this ECG as follows: Indication: SOB/dyspnea Rate (beats per minute): 115 Rhythm: other (v-paced) Findings: + LBBB, + PVC and + left axis deviation Blood Pressure Blood Pressure Findings: Normal blood pressure Blood Pressure Disposition: did not require urgent referral MDM Narrative Patient is an 83-year-old male who presents the ER swelling in his lower extremities associated with some mild shortness of breath. Labs were obtained and showed no significant leukocytosis or anemia. INR was slightly subtherapeutic at 1.6. BMP was unremarkable with exception of a elevated bilirubin of 4.2 with a baseline on previous which appeared to be around 3. Troponin was elevated at 0.084 which is higher than his baseline. BNP was elevated as well. UA was contaminated with multiple epithelial cells. Chest x- ray supports CHF as well as his exam. Patient was given IV Lasix. He was updated bedside. Discussed case with the hospitalist and patient will be admitted for further workup. Impression & Plan CHF (congestive heart failure), Elevated troponin Discharge Plan Visit Data Chief Complaint: Edema To Extremity ED Provider: Patrick Clay Discharge Problem: CHF (congestive heart failure), Elevated troponin Patient Disposition: Being Evaluated by Hospitalist Discharge Instructions Interventions: ED Discharge Assessment Last Done: 08/22/18 14:08 Discharge Problem: CHF (congestive heart failure) Qualifiers: Heart failure type: unspecified Heart failure chronicity: acute on chronic Qualified Code(s): I50.9 - Heart failure, unspecified The scribe's documentation has been prepared under my direction and personally reviewed by me in its entirety. I confirm that the note above accurately reflects all work, treatment, procedures, and medical decision making performed by me.
[2018-08-22] MEDS ORDERED: ACETAMINOPHEN 325 MG TAB PO PRN (15:04)
[2018-08-22] MEDS ORDERED: NITROGLYCERIN SL 0.4 MG/TAB TAB SL PRN (15:04)
[2018-08-22] MEDS ORDERED: ALUMINUM/MAGNESIUM SUSP 30 ML UDC PO PRN (15:04)
[2018-08-22] MEDS ORDERED: ONDANSETRON INJ 2 MG/ML 2 ML VIAL IV PRN (15:04)
[2018-08-22] MEDS ORDERED: MoRPHine SULFATE 2 MG/ML CARP IV PRN (15:04)
[2018-08-22 17:18] LABS: Appearance Urine Cloudy (Clear); Bacteria Urine Automated 2+ (Negative); Bilirubin Urine Negative (Negative); Blood Urine 2+ (Negative); Color Urine Dark Yellow; Glucose Urine UA Negative (Negative); Ketones Urine Negative (Negative); Leukocyte Esterase Urine 2+ (Negative); Nitrite Urine Positive (Negative); Protein Urine 1+ (Negative); RBC Urine Automated 0-4 /hpf (0-4); Specific Gravity Urine 1.014 (1.000-1.030); Urobilinogen Urine Negative (Negative); WBC Urine Automated >30 /hpf (0-5)
--- NOTE | 2018-08-22 18:24 | Cardiology Consultation ---
Date of Consultation August 22, 2018 Assessment & Plan (1) Acute on chronic systolic (congestive) heart failure: He is significantly hypervolemic and will likely take several days and possibly a few weeks to completely diurese to euvolemic state. He states that he is willing to remain hospitalized to reach that goal. Will increase Lasix to 80 mg IV b.i.d.. Start spironolactone 25 mg daily for potassium sparing diuretic. Monitor electrolytes and renal function closely while aggressively diuresing. If he does not have significant output with current dosing, could consider further titration or add addition of thiazide diuretic, or perhaps even Lasix drip. Strict I&Os. Daily weights. Low-sodium diet. We also discussed the importance of a low-sodium diet and the avoidance of canned goods such as soup, which he often eats. Recommend that he reestablish with heart failure program. (2) NICM (nonischemic cardiomyopathy): He had been on guideline directed therapy in the past but has not been taking these medications recently. He may have been taking beta-neha. Will restart low-dose carvedilol 3.125 mg twice daily as metoprolol is listed on his home medications. This can be titrated as he improves from a heart failure standpoint. Would also consider restarting Entresto after some diuresis is achieved. He has biventricular ICD in place for primary prevention. Spironolactone added as above. (3) Atrial fibrillation: Permanent atrial fibrillation. On anticoagulation therapy. Monitor INR periodically. Goal INR 2-3. Beta-neha as above. (4) Elevated troponin: Likely secondary to CHF. No ischemic evaluation recommended at this time. (5) Mitral regurgitation: Has a history of moderate mitral regurgitation, but most recently mild in May of 2018. He did have moderate to severe tricuspid regurgitation as well. Degree of MR and TR may fluctuate with volume status. This can be followed over time. Disposition: Cardiology will continue to follow. Aggressive diuresis as above. Expect prolonged hospital stay and recommend close follow-up with the Heart failure program. Highly complex medical issues. Thank you for allowing me to participate in the care of your patient. Please call for any other questions or concerns. Sincerely, Derrek Tang M.D. History of Present Illness Reason for Consultation: CHF Requesting Physician: Waqar Parks MD Attending Physician: Waqar Parks MD History of Present Illness Mr. Rojas is a very pleasant 83-year-old gentleman with a history significant for nonischemic cardiomyopathy (coronary angiography 02/11/2003), chronic systolic CHF, permanent atrial fibrillation despite ablation 2005, bi V ICD, and mitral regurgitation. His primary director of engineering is Dr. Amin and Dr. Gil. He has also been seen in the Heart failure program in May but has not since followed up with heart failure program. He reported to the emergency department today due to significant lower extremity edema and dyspnea with exertion. For the past 3 weeks or so he has noted worsening edema and dyspnea with exertion. Even during conversation today, he appeared to be dyspneic. He denies orthopnea but has had PND intermittently. He denies chest pain, syncope, near-syncope, palpitations or bleeding such as melena, hematochezia, or hematuria. He stated that he does not eat a lot of salt but did add salt recently to his aches. More specifically, however, he has been eating a lot of canned soup, not realizing high sodium content. He takes Lasix 40 mg once daily at home. In the past he had been on carvedilol, spironolactone, and Entresto. Now he states he only takes 3 medications. According to the office chart he takes finasteride, warfarin, tamsulosin, Lasix, and metoprolol tartrate, but he does not recall the medications that he actually takes. He states that he is willing to remain hospitalized the rest of the year if it can help him breathe better and improve his lower extremity edema. He feels very tired and weak when trying to walk. Review of systems: As above. Review of systems otherwise negative/unremarkable. Social history: Denies smoking, alcohol, or drug abuse. He lives at home with his . 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 He has 2 children. He is unaccompanied. Family history: He states there is a family history of heart disease. Allergies Allergy/AdvReac Type Severity Reaction Status Date / Time atorvastatin Allergy Unknown GI SYMPTOMS Verified 08/22/18 11:26 simvastatin Allergy Unknown GI SYMPTOMS Verified 08/22/18 11:26 Home Medications Home Medications Medication Instructions Recorded Confirmed Type furosemide 40 mg PO DAILY 05/16/18 08/22/18 History tamsulosin 0.4 mg PO BID 05/16/18 08/22/18 History finasteride 5 mg PO DAILY 08/22/18 08/22/18 History warfarin 2.5 mg PO DAILY 08/22/18 08/22/18 History Patient History Medical History Lower extremity edema Biventricular ICD (implantable cardioverter-defibrillator) in place CHF (congestive heart failure) (Chronic) 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 Acetabular fracture BPH (benign prostatic hyperplasia) CKD (chronic kidney disease) Hypertension UTI (urinary tract infection) Urinary retention Urinary tract infection Surgical History Status post placement of cardiac pacemaker (Resolved) Biventricular ICD Previous back surgery S/P knee surgery Family History Other Cancer Heart attack Heart disease No pertinent family history Social History Preferred Language: Sri Lankan Communication Ability: Effective Typing Checker Required: No Beliefs That Will Affect Care: None marital status: Current Living Situation: Spouse Other Information That Helps Us Care for You: No Feels Safe at Home: Yes Safety Concerns: Feels Safe At This Time Smoking Status: Never smoker Hx Alcohol Use: No Hx Substance Use: No Physical Exam Vital Signs (Past 24 Hours): Last Vital Signs Temp 35.2 C L 08/22/18 15:04 Pulse 96 H 08/22/18 15:04 Resp 16 08/22/18 15:04 BP 103/67 08/22/18 15:04 Pulse Ox 95 08/22/18 15:04 Intake & Output 08/20/18 08/21/18 08/22/18 08/23/18 06:59 06:59 06:59 06:59 Weight 100.9 kg Physical Exam: Gen.: No acute distress. Alert and oriented. HEENT: Anicteric sclera. Neck: JVD to the mandible with head of bed elevated approximately 45. No bruits. Normal carotid upstrokes bilaterally. Cardiac: PMI was laterally displaced. Ventricular heave noted. Regular. Normal S1-S2. 2/6 systolic murmur. No rubs or gallops. Pulmonary: Left basilar rales, otherwise clear. Abdomen: Soft, nontender, nondistended, with normoactive bowel sounds. No bruits noted. Trace edema at the flanks. Extremities: 2+ radial pulses bilaterally. 1+ posterior tibialis pulses bilaterally. 4+ bilateral lower extremity edema to the hips. No cyanosis. Psychiatric: Affect appears appropriate. Results & Data Laboratory Results Laboratory Results - last 24 hr 08/22/18 08/22/18 08/22/18 11:40 11:40 11:40 WBC 6.01 RBC 4.60 L Hgb 14.5 Hct 41.5 L MCV 90.2 MCH 31.5 MCHC 34.9 RDW Std Deviation 62.3 H RDW Coeff of Thor 19.4 H Plt Count 131 MPV 10.3 Immature Gran % (Auto) 0.2 Neut % (Auto) 75.8 Lymph % (Auto) 12.6 [place] % (Auto) 10.1 Eos % (Auto) 1.0 Baso % (Auto) 0.3 Immature Gran # (Auto) 0.01 Neut # (Auto) 4.55 Lymph # (Auto) 0.76 L [place] # (Auto) 0.61 H Eos # (Auto) 0.06 Baso # (Auto) 0.02 PT Cancelled INR Cancelled APTT Cancelled PTT Ratio Cancelled Sodium 137 Potassium 3.6 Chloride 103 Carbon Dioxide 25 Anion Gap 9.0 BUN 27 H Creatinine 1.28 Est Cr Clr Drug Dosing 52.1 Est GFR ( Amer) 59.6 Est GFR (Non-Af Amer) 51.4 BUN/Creatinine Ratio 21.0 H Glucose 95 Calcium 9.0 Total Bilirubin 4.2 H AST 32 ALT 15 Alkaline Phosphatase 122 H Troponin I 0.084 H* NT-Pro-B Natriuret Pep 8394 H Total Protein 7.3 Albumin 3.0 L Globulin 4.3 H Albumin/Globulin Ratio 0.7 L Urine Color Urine Appearance Urine pH Ur Specific [place] Urine Protein Urine Glucose (UA) Urine Ketones Urine Blood Urine Nitrite Urine Bilirubin Urine Urobilinogen Ur Leukocyte Esterase Urine WBC (Auto) Urine RBC (Auto) U Hyaline Cast (Auto) U Epithel Cells (Auto) Urine Bacteria (Auto) Urine RBC Urine WBC Ur Epithelial Cells Urine Bacteria 08/22/18 08/22/18 08/22/18 12:20 12:42 16:45 WBC RBC Hgb Hct MCV MCH MCHC RDW Std Deviation RDW Coeff of Thor Plt Count MPV Immature Gran % (Auto) Neut % (Auto) Lymph % (Auto) [place] % (Auto) Eos % (Auto) Baso % (Auto) Immature Gran # (Auto) Neut # (Auto) Lymph # (Auto) [place] # (Auto) Eos # (Auto) Baso # (Auto) PT 15.9 H INR 1.6 H APTT 32.5 H PTT Ratio 1.2 Sodium Potassium Chloride Carbon Dioxide Anion Gap BUN Creatinine Est Cr Clr Drug Dosing Est GFR ( Amer) Est GFR (Non-Af Amer) BUN/Creatinine Ratio Glucose Calcium Total Bilirubin AST ALT Alkaline Phosphatase Troponin I NT-Pro-B Natriuret Pep Total Protein Albumin Globulin Albumin/Globulin Ratio Urine Color [place] Dark Yellow Urine Appearance Slightly Cloudy H Cloudy H Urine pH 5.0 Ur Specific [place] 1.019 1.014 Urine Protein Positive H 1+ H Urine Glucose (UA) Negative Urine Ketones Negative Urine Blood 2+ H Urine Nitrite Positive H Urine Bilirubin Negative Urine Urobilinogen Negative Ur Leukocyte Esterase 2+ H Urine WBC (Auto) >30 H Urine RBC (Auto) 0-4 U Hyaline Cast (Auto) 1-5 U Epithel Cells (Auto) 5-10 H Urine Bacteria (Auto) 2+ H Urine RBC 5-10 H Urine WBC >30 H Ur Epithelial Cells >30 H Urine Bacteria 4+ H Diagnostic Findings Cardiac catheterization report reviewed from 02/11/2003: Minimal nonobstructive CAD (luminal irregularities). EF 15%. Moderate pulmonary hypertension. Elevated PCWP. Echo 05/17/2018: Severely reduced LV systolic function. EF 15-20%. Severe global hypokinesis. Severe LV dilation. Moderately dilated RV. Severely reduced RV systolic function. Moderate left atrial dilation. Severe right atrial dilation. Mild MR. Moderate to severe TR. RVSP 30-40. Pleural effusion. Echo 10/09/2017: Severely reduced LV systolic function. EF less than 20%. Severely dilated LV. All cardiac chambers were dilated. Moderate MR. Moderate TR. Pleural effusions. Dilated IVC. ECG personally reviewed: ECG 08/22/2018: Ventricular paced 115 bpm. Underlying rhythm appears to be AFib. Chest x-ray 08/22/2018: Prominent pulmonary vasculature per Radiology. Medications Administered Current Inpatient Medications Acetaminophen (Tylenol) 650 mg PO Q4H PRN PRN Reason: Pain or Fever Stop: 09/21/18 15:03 Al Hydrox/Mg Hydrox/Simethicone (Maalox) 15 ml PO Q4H PRN PRN Reason: Dyspepsia Stop: 09/21/18 15:03 Aspirin (Ecotrin Ectab) 81 mg PO QAM [facility] Stop: 09/22/18 08:59 Carvedilol (Coreg) 3.125 mg PO BID [facility] Stop: 09/21/18 20:59 Finasteride (Proscar) 5 mg PO DAILY [facility] Stop: 09/22/18 08:59 Furosemide 80 mg/ Syringe 8 mls @ 4 mls/min IV BID [facility] Stop: 09/21/18 20:59 Morphine Sulfate (Morphine Sulfate) 2 mg IV Q4 PRN PRN Reason: Chest Pain Stop: 09/05/18 15:03 Nitroglycerin (Nitrostat) 0.4 mg SL UD PRN PRN Reason: Chest Pain Stop: 09/21/18 15:03 Ondansetron HCl (Zofran) 4 mg IV Q6H PRN PRN Reason: Nausea Stop: 09/21/18 15:03 Potassium Chloride (Klor-Con M20) 20 meq PO QAM [facility] Stop: 09/22/18 08:59 Spironolactone (Aldactone) 25 mg PO QAM [facility] Stop: 09/22/18 08:59 Tamsulosin HCl (Flomax) 0.4 mg PO BID [facility] Stop: 09/21/18 20:59
[2018-08-22] MEDS: FUROSEMIDE 80 MG in SYRINGE 0 ML IV SCH (20:53)
[2018-08-22] MEDS: CARVEDILOL 3.125 MG TAB PO SCH (20:54)
[2018-08-22] MEDS: TAMSULOSIN HCL 0.4 MG CAP PO SCH (20:54)
[2018-08-23 07:20] LABS: INR 1.7 (0.9-1.1)
[2018-08-23 07:44] LABS: Albumin Level 2.5 gm/dl (3.4-5.0); Bilirubin Direct 2.1 mg/dl (0-0.2); Calcium 8.5 mg/dl (8.5-10.1); Creatinine Clr Calc Pharmacy 54.2 ml/min; Est GFR (African American) 63.2; Est GFR (Non-African American) 54.5; Potassium 3.6 mmol/L (3.5-5.1)
[2018-08-23 07:54] LABS: Bilirubin,Total 3.9 mg/dl (0.2-1); Total Protein 5.8 gm/dl (6.4-8.2); Troponin I 0.101 ng/ml (0-0.045)
[2018-08-23] MEDS: FUROSEMIDE 80 MG in SYRINGE 0 ML IV SCH ×2 (08:04→17:02)
[2018-08-23] MEDS: TAMSULOSIN HCL 0.4 MG CAP PO SCH ×2 (08:04→22:07)
[2018-08-23] MEDS: FINASTERIDE 5 MG TAB PO SCH (08:04)
[2018-08-23] MEDS: POTASSIUM CHLORIDE 20 MEQ TABCR PO SCH (08:04)
[2018-08-23] MEDS: SPIRONOLACTONE 25 MG TAB PO SCH (08:04)
[2018-08-23] MEDS: CARVEDILOL 3.125 MG TAB PO SCH ×2 (08:04→22:07)
[2018-08-23] MEDS: ASPIRIN 81 MG ECTAB PO SCH (08:04)
[2018-08-23] MEDS ORDERED: FUROSEMIDE 40 MG in SYRINGE 0 ML IV SCH (09:00)
--- NOTE | 2018-08-23 10:05 | Cardiology Progress Note ---
Date of Service August 23, 2018 Assessment & Plan (1) Acute on chronic systolic (congestive) heart failure: He is massively fluid overloaded, I suspect this is on the basis of noncompliance. Based on his weights he has lost 1-1/2 kg, based on his I and O he has not lost weight. I would continue the current diuretic to see what the trend is as the data is contradictory. Clinically it is too early to tell whether we have made much progress. (2) NICM (nonischemic cardiomyopathy): We have struggled to maintain his heart failure medications, he evidently discontinued his carvedilol. He is very vague in his history about that. We will gradually try to reintroduce his medications but his blood pressure is on the low side. (3) Atrial fibrillation: He is in permanent atrial fibrillation and needs to remain on anticoagulation. (4) Elevated troponin: His troponin is more elevated than it was last time but still not very high, I am not sure why it is higher today. I would follow it and not perform any further evaluation at this time. Subjective Today he is only complaining of feeling cold, he is not complaining of shortness of breath. He notes that his legs are very swollen. Physical Exam Vital Signs (Past 24 Hours): Last Vital Signs Temp 36.7 C 08/23/18 07:29 Pulse 94 H 08/23/18 07:29 Resp 18 08/23/18 07:29 BP 97/62 L 08/23/18 07:29 Pulse Ox 93 08/23/18 07:29 Physical Exam: Constitutional: Alert but sleepy, cooperative and in no distress. Pulmonary: Clear to auscultation bilaterally. Cardiac: Regular rhythm with no murmur, gallop or rub. Abdomen: Soft, nontender with normal bowel sounds. Extremities: +3 bilateral pitting edema. Skin: No rash, ecchymoses or petechiae. Results & Data Diagnostic Findings Telemetry: Ventricular paced rhythm throughout
--- NOTE | 2018-08-23 16:34 | Heart Failure Progress Note ---
Date of Service August 23, 2018 Assessment & Plan (1) Acute on chronic systolic (congestive) heart failure: He is massively fluid overloaded, I suspect this is on the basis of medical noncompliance. He feels that the medications make him feel worse. I would continue the current diuretic at Lasix 80 mg IV BID. Would consider adding Diuril 250 mg daily today. If still not affecting diuresis would consider Lasix drip vs dobutamine. I suspect his overall prognosis is poor. Palliative care was consulted at his previous admission and was not well received by the patient. If he's willing to talk to them again I think it would be beneficial for both him and his . He may even need to consider hospice/comfort care if he continues to decline and unwilling to take his outpatient medications. He remains a full code for now, will defer to primary service. Continue daily weights, I&Os, low sodium diet, and strict fluid restriction. Will continue to follow along during his hospitalization. (2) NICM (nonischemic cardiomyopathy): We have struggled to maintain his heart failure medications, he evidently discontinued his carvedilol. He is very vague in his history about that. We will gradually try to reintroduce his medications but his blood pressure is on the low side. (3) Atrial fibrillation: (4) Elevated troponin: Subjective Mr. Rojas is known to me from previous admission. He has had minimal outpatient follow up because he has resisted travel and most of my attempts at phone call follow ups. According to the notes, he has not been taking his medications at home. I asked his if she could verify and she states she wasn't sure what he was taking. He is admitted for significant hypervolemia and progressive shortness of breath. He is receiving Lasix 80 mg IV BID with minimal urine output. He is negative 650 mL so far. He did try to urinate when I was in the room and some did go uncollected at that time so accuracy could be questionable. He was noted to be significantly short of breath when just moving around in his bed. He was in poor spirits today and was not offering much conversation. He has mottling noted at his knees. Physical Exam Vital Signs (Past 24 Hours): Last Vital Signs Temp 37.0 C 08/23/18 15:35 Pulse 83 08/23/18 15:35 Resp 18 08/23/18 15:35 BP 94/58 L 08/23/18 15:35 Pulse Ox 95 08/23/18 15:35
[2018-08-23] MEDS ORDERED: CHLOROTHIAZIDE SODIUM 500 MG in DEXTROSE 5% 50 ML IV ONE (17:00)
--- NOTE | 2018-08-23 22:44 | Hospitalist Progress Note ---
Date of Service August 23, 2018 Assessment & Plan (1) CHF (congestive heart failure): This appears to be an acute episode of chronic systolic failure. Pt has a history of chronic systolic heart failure with EF of 20%, he sees sona for pacemaker, has had trial of b neha in the last few months and has had pacer adjustment, admits to not checking his weights at home and eating whatever his prepares. Does have chronic CXR changes, massive LE edema and elevated trop, but does not have JVD or hypoxia, does have minor rales on exam. will continue IV lasix and follow for lower extremity improvement as does have some new stage 2 ulcers on lateral right ankle. Trop only mildly increased to 0.1; will monitor. Patient cotinues to have underlying atrial fibrillation he is on Coumadin for secondary thromboembolic prevention (2) CKD (chronic kidney disease): Pt has stable BUN/Cr will follow with diuresis creat remains at baseline. (3) Status post placement of cardiac pacemaker: with recent adjustment will consult Dr Amin; appreciate input (4) BPH (benign prostatic hyperplasia): pt has no urinary symptoms but due to his complaints of weakness of his lower extremities, will continue flomax and proscar and check ua (5) Abnormal LFTs: Pt has had elevated bili in the past, this was felt to be secondary to congestive hepatopathy, this is slightly higher than last time. Trending down, (6) DVT prophylaxis: Pt is on daily coumadin, INR is near 2, will continue Spent 35 minutes in management of patient. Subjective Patient was seen resting comfortably. Patient awoke and states that he gets very short of breath with any movement in his bed. Patient continues to require nasal cannula. Constitutional: no sweats, no body aches and no malaise Eyes: no discharge Ear, Nose, Mouth, Throat: no tinnitus Respiratory: + dyspnea Cardiovascular: + dyspnea at rest and + dyspnea on exertion; no chest pain Gastrointestinal: no abdominal pain Musculoskeletal: no loss of height Integumentary: no lesions Neurologic: no localized weakness and no loss of sensation Psychiatric: no change in sex drive Endocrine: no polyphagia Physical Exam Vital Signs (Past 24 Hours): Last Vital Signs Temp 37.3 C 08/23/18 19:11 Pulse 85 08/23/18 19:11 Resp 18 08/23/18 19:11 BP 101/58 L 08/23/18 19:11 Pulse Ox 93 08/23/18 19:11 Physical Exam: The patient in NAD. Vital signs as documented. Head exam is unremarkable. normocephalic, atraumatic Neck is without jugular venous distension, thyromegaly, or lymphademopathy Lungs he has some mild rales at the base B/L Cardiac exam reveals a tachycardic rhythm with a systolic murmur and a displaced lateral enlarged PMI Abdominal exam reveals normal bowel sounds, no masses, no organomegaly. Extremities are massively edematous bilaterally capillary refill is preserved to his toes Neurologic exam is A&Ox3, no focal deficits, strength is equal bilateral Psychologically seems neither anxious or depressed Skin is warm Dry patient has no changes of chronic venous stasis
[2018-08-24 06:06] LABS: Hematocrit (blood only) 39.8 % (42-52); Hemoglobin 13.9 g/dL (14.0-18.0); Mean Corpuscular Hgb Conc 34.9 g/dL (32-36); Mean Corpuscular Volume 89.2 fL (80-100); Mean Platelet Volume 10.8 fL (7.4-10.4); Platelet Count 111 K/uL (130-400); RDW Coefficient of Variation 19.7 % (11.5-14.5); RDW Standard Deviation 62.6 fL (36.4-46.3); Red Blood Count 4.46 M/uL (4.7-6.1); White Blood Count 12.94 K/uL (4.8-10.8)
[2018-08-24 06:14] LABS: Prothrombin Time 19.7 Seconds (9.0-12.0)
[2018-08-24 06:24] LABS: BUN Creatinine Ratio 20.6 (10-20); Calcium 8.4 mg/dl (8.5-10.1); Creatinine Clr Calc Pharmacy 43.6 ml/min; Est GFR (African American) 48.4; Est GFR (Non-African American) 41.8; Potassium 3.6 mmol/L (3.5-5.1)
[2018-08-24] MEDS: CARVEDILOL 3.125 MG TAB PO SCH ×2 (08:42→21:45)
[2018-08-24] MEDS: POTASSIUM CHLORIDE 20 MEQ TABCR PO SCH (08:42)
[2018-08-24] MEDS: SPIRONOLACTONE 25 MG TAB PO SCH (08:42)
[2018-08-24] MEDS: ASPIRIN 81 MG ECTAB PO SCH (08:42)
[2018-08-24] MEDS: TAMSULOSIN HCL 0.4 MG CAP PO SCH ×2 (08:42→21:45)
[2018-08-24] MEDS: FUROSEMIDE 80 MG in SYRINGE 0 ML IV SCH (08:42)
[2018-08-24] MEDS: FINASTERIDE 5 MG TAB PO SCH (08:43)
[2018-08-24] MEDS: CHLOROTHIAZIDE SODIUM 500 MG in DEXTROSE 5% 50 ML IV SCH (08:52)
[2018-08-24 09:41] LABS: Basophils # (auto) 0.01 K/uL (0-0.2); Basophils % (auto) 0.1 %; Eosinophils # (auto) 0.01 K/uL (0-0.5); Eosinophils % (auto) 0.1 %; Immature Granulocytes # (auto) 0.14 K/uL (0.00-0.02); Lymphocytes # (auto) 0.32 K/uL (1.2-3.4); Lymphocytes % (auto) 2.4 %; Monocytes % (auto) 2.2 %; Neutrophils # (auto) 12.65 K/uL (1.4-6.5); Neutrophils % (auto) 94.2 %
--- NOTE | 2018-08-24 12:00 | Cardiology Progress Note ---
Date of Service August 24, 2018 Assessment & Plan (1) Acute on chronic systolic (congestive) heart failure: He is massively fluid overloaded, I suspect this is on the basis of noncompliance. So far we do not seem to be getting very far with fluid loss. His creatinine has risen substantially. I am going to start dobutamine at a low dose in order to try to mobilize some fluid and maintain renal perfusion. I am also going to place him on a fluid restriction. (2) NICM (nonischemic cardiomyopathy): We have struggled to maintain his heart failure medications, he evidently discontinued his carvedilol. He is very vague in his history about that. We will gradually try to reintroduce his medications but his blood pressure is on the low side. (3) Atrial fibrillation: He is in permanent atrial fibrillation and needs to remain on anticoagulation. (4) Elevated troponin: His troponin is more elevated this admission than it was last time but still not very high, there is no particular trend. I would not perform any further evaluation at this time. Subjective Today he is evidently feeling better. He tells me that he would like to drink a Coke, he feels that drinking Coke helps get rid of fluid. He drinks a lot of water. He notes his legs are very swollen but his breathing is better. Physical Exam Vital Signs (Past 24 Hours): Last Vital Signs Temp 36.9 C 08/24/18 10:47 Pulse 81 08/24/18 10:47 Resp 16 08/24/18 10:47 BP 90/54 L 08/24/18 10:47 Pulse Ox 97 08/24/18 10:47 Physical Exam: Constitutional: Alert, cooperative and in no distress. Pulmonary: Decreased breath sounds bilaterally. Cardiac: Regular rhythm with no murmur, gallop or rub. Abdomen: Soft, nontender with normal bowel sounds. Extremities: +3 bilateral pitting edema. Skin: No rash, ecchymoses or petechiae. Results & Data Diagnostic Findings Telemetry: Paced generally in the 80s
[2018-08-24] MEDS: DOBUTamine / D5W 500 MG/250 ML BAG IV SCH (13:00)
--- NOTE | 2018-08-24 22:38 | Hospitalist Progress Note ---
Date of Service August 24, 2018 Assessment & Plan (1) CHF (congestive heart failure): This appears to be an acute episode of chronic systolic failure. Pt has a history of chronic systolic heart failure with EF of 20%, he sees sona for pacemaker, has had trial of b neha in the last few months and has had pacer adjustment, admits to not checking his weights at home and eating whatever his prepares. Does have chronic CXR changes, massive LE edema and elevated trop, but does not have JVD or hypoxia, does have minor rales on exam. will continue IV lasix and follow for lower extremity improvement as does have some new stage 2 ulcers on lateral right ankle. Due to worsening creatinine, will hold PM dose of lasix. will recheck creatinine on 08/25. Patient though is able to now tolerate room air without supplemental oxygen. Trop only mildly increased to 0.1; will monitor. Patient continues to have underlying atrial fibrillation he is on Coumadin for secondary thromboembolic prevention Update: D/W Cardio: will also place on dobutamine to help with his diuresis. requires more diuresis. (2) CKD (chronic kidney disease): Pt has stable BUN/Cr will follow with diuresis creat increased today. (3) Status post placement of cardiac pacemaker: with recent adjustment will consult Dr Amin; appreciate input (4) BPH (benign prostatic hyperplasia): pt has no urinary symptoms but due to his complaints of weakness of his lower extremities, will continue flomax and proscar (5) Abnormal LFTs: Pt has had elevated bili in the past, this was felt to be secondary to congestive hepatopathy, this is slightly higher than last time. Trending down, (6) DVT prophylaxis: Pt is on daily coumadin, INR is 2. Spent 25 minutes in management of patient. Subjective Patient reports breathing better. Able to remove nasal cannula. Patient reports less SOB at rest. Patient denies nausea, vomiting, diarrhea, chest pain. Physical Exam Vital Signs (Past 24 Hours): Last Vital Signs Temp 36.9 C 08/24/18 10:47 Pulse 81 08/24/18 10:47 Resp 16 08/24/18 10:47 BP 90/54 L 08/24/18 10:47 Pulse Ox 97 08/24/18 10:47 Physical Exam: The patient in NAD. off nasal cannula. Vital signs as documented. Head exam is unremarkable. normocephalic, atraumatic Neck is without jugular venous distension, thyromegaly, or lymphademopathy Lungs he has some mild rales at the base B/L Cardiac exam reveals a tachycardic rhythm with a systolic murmur and a displaced lateral enlarged PMI Abdominal exam reveals normal bowel sounds, no masses, no organomegaly. Extremities are massively edematous bilaterally capillary refill is preserved to his toes Neurologic exam is A&Ox3, no focal deficits, strength is equal bilateral Psychologically seems neither anxious or depressed Skin is warm Dry patient has no changes of chronic venous stasis
[2018-08-25 06:42] LABS: INR 1.8 (0.9-1.1)
[2018-08-25 06:53] LABS: BUN Creatinine Ratio 19.9 (10-20); Calcium 8.3 mg/dl (8.5-10.1); Creatinine Clr Calc Pharmacy 40.8 ml/min; Est GFR (African American) 45.2; Potassium 3.3 mmol/L (3.5-5.1)
[2018-08-25] MEDS: FUROSEMIDE 80 MG in SYRINGE 0 ML IV SCH (08:49)
[2018-08-25] MEDS: CARVEDILOL 3.125 MG TAB PO SCH ×2 (08:49→20:36)
[2018-08-25] MEDS: TAMSULOSIN HCL 0.4 MG CAP PO SCH ×2 (08:49→20:36)
[2018-08-25] MEDS: FINASTERIDE 5 MG TAB PO SCH (08:50)
[2018-08-25] MEDS: CHLOROTHIAZIDE SODIUM 500 MG in DEXTROSE 5% 50 ML IV SCH (08:50)
[2018-08-25] MEDS: SPIRONOLACTONE 25 MG TAB PO SCH (08:50)
[2018-08-25] MEDS: POTASSIUM CHLORIDE 20 MEQ TABCR PO SCH ×3 (08:50→20:36)
[2018-08-25] MEDS: ASPIRIN 81 MG ECTAB PO SCH (08:50)
--- NOTE | 2018-08-25 10:40 | Cardiology Progress Note ---
Date of Service August 25, 2018 Assessment & Plan (1) Acute on chronic systolic (congestive) heart failure: He presented massively fluid overloaded, I suspect this is on the basis of noncompliance. We have not removed a lot of fluid, but starting dobutamine yesterday appeared to help with his diuresis. His creatinine had risen substantially yesterday suggesting a low flow state, it is slightly higher today but not much. I believe dobutamine at a low dose has helped to mobilize some fluid and maintain renal perfusion, we could increase the dose but I think I will keep it at the current dose for another day. (2) NICM (nonischemic cardiomyopathy): We have struggled to maintain his heart failure medications, he evidently discontinued his carvedilol. He is very vague in his history about that. We will gradually try to reintroduce his medications but his blood pressure is on the low side. (3) Atrial fibrillation: He is in permanent atrial fibrillation and needs to remain on anticoagulation. (4) Elevated troponin: His troponin is more elevated this admission than it was last time but still not very high, there is no particular trend. I would not perform any further evaluation at this time. Subjective He is feeling better today. He is still having difficulty with shortness of breath however he is sitting in a chair and other than being tired is not having much in the way of cardiovascular complaints. Physical Exam Vital Signs (Past 24 Hours): Last Vital Signs Temp 37.1 C 08/25/18 07:39 Pulse 80 08/25/18 07:39 Resp 22 08/25/18 07:39 BP 94/57 L 08/25/18 07:39 Pulse Ox 97 08/25/18 07:39 Physical Exam: Constitutional: Alert, cooperative and in no distress. Pulmonary: Clear to auscultation bilaterally with diminished breath sounds throughout. Cardiac: Regular rhythm with no murmur, gallop or rub. Abdomen: Soft, nontender with normal bowel sounds. Extremities: +3 bilateral pretibial edema, however improved from yesterday. Skin: No rash, ecchymoses or petechiae. Results & Data Diagnostic Findings Telemetry: Ventricular paced rhythm throughout
[2018-08-25] MEDS: DOBUTamine / D5W 500 MG/250 ML BAG IV SCH (13:12)
--- NOTE | 2018-08-25 15:25 | Hospitalist Progress Note ---
Date of Service August 25, 2018 Assessment & Plan (1) Acute on chronic systolic (congestive) heart failure: difficult to diurese, massive volume overload likely caused by non-compliance continue dobutamine drip, Lasix, Diuril, Spironolactone fluid restriction, daily weights, monitor I/O cardiology following has a significant amount of volume to remove, will be hospitalized the remainder of this week (2) Acute kidney injury: Cr up to 1.6 due to diuresis continue to monitor closely repeat BMP in the AM (3) Hypokalemia: low at 3.3 increase replacement to 20mEq TID from daily repeat tomorrow (4) CKD (chronic kidney disease): stage III chronically currently Cr up to 1.6 with diuresis, continue to monitor (5) Status post placement of cardiac pacemaker: with recent adjustment will consult Dr Amin; appreciate input (6) BPH (benign prostatic hyperplasia): pt has no urinary symptoms but due to his complaints of weakness of his lower extremities, will continue flomax and proscar (7) Abnormal LFTs: bili trending down likely due to hepatic congestion in setting of heart failure (8) Cardiomyopathy: chronic issue, EF 20% (9) Atrial fibrillation: chronic watch for tachycardia on dobutamine continue Coumadin, INR only 1.8 repeat in the AM (10) NICM (nonischemic cardiomyopathy): (11) DVT prophylaxis: Coumadin Subjective patient sitting up in chair, very fatigued today still with significant edema, minimal improvement maintaining negative fluid balance, more output with starting Dobutamine K low at 3.3, will increase replacement to TID d/w Dr. Amin, will keep dobutamine dose at current dose given mild rise in Cr BP running low normal patient's appetite is poor c/o some pain in right ankle associated with wound Review of Systems All systems reviewed & are unremarkable except as noted in HPI & below Constitutional: + fatigue, + weakness and + weight gain Respiratory: + dyspnea and + dyspnea on exertion Cardiovascular: + orthopnea and + edema (entire legs up to the hips); no chest pain Musculoskeletal: + muscle weakness (diffuses, profound weakness, cannot transfer independently) Integumentary: + wounds (right ankle wound) Physical Exam Vital Signs (Past 24 Hours): Last Vital Signs Temp 37.9 C H 08/25/18 11:38 Pulse 81 08/25/18 11:38 Resp 18 08/25/18 11:38 BP 99/63 L 08/25/18 11:38 Pulse Ox 99 08/25/18 11:38 Constitutional: WD/WN, vitals as above Eyes: PERRL, conjunctivae normal, anicteric sclerae ENMT: external ear and nose normal, oropharynx normal Neck: trachea midline, no thyromegaly Respiratory: normal respiratory effort; no respiratory distress Auscultation: + diminished lung sounds (bases) and + rales (bases) Cardiovascular: Rate/Rhythm: regular rate and regular rhythm Heart Sounds: no murmur Vessels: + JVD and normal peripheral pulses Extremities: + edema (pitting to the hips bilaterally) Gastrointestinal (Abdomen): normal bowel sounds, soft, nontender, no hepatosplenomegaly Musculoskeletal: Head/Neck/Chest: normocephalic and head atraumatic Extremities: + abnormal strength (profound weakness in legs and arms); no cyanosis and no clubbing Skin: no rashes, warm and dry + wound (right ankle, dressed, not weaping) Neurologic: PERRL, EOMI, accommodation nl, no face palsy, no dysarthria normal touch/pain/proprioception and CN's II-XI intact bilaterally Psychiatric: Orientation: alert and oriented x 3 Affect: + flat affect Lymphatic: no cervical or axillary lymphadenopathy Results & Data Laboratory Results Laboratory Results - last 24 hr 08/25/18 08/25/18 08/25/18 06:09 06:09 06:09 PT 18.0 H INR 1.8 H Sodium 131 L Potassium 3.3 L Chloride 97 L Carbon Dioxide 29 Anion Gap 5.0 BUN 32 H Creatinine 1.61 H Est Cr Clr Drug Dosing 40.8 Est GFR ( Amer) 45.2 Est GFR (Non-Af Amer) 39.0 BUN/Creatinine Ratio 19.9 Glucose 98 Calcium 8.3 L Troponin I 0.136 H* Medications Administered Current Inpatient Medications Acetaminophen (Tylenol) 650 mg PO Q4H PRN PRN Reason: Pain or Fever Stop: 09/21/18 15:03 Al Hydrox/Mg Hydrox/Simethicone (Maalox) 15 ml PO Q4H PRN PRN Reason: Dyspepsia Stop: 09/21/18 15:03 Last Admin: 08/24/18 05:41 Dose: 15 ml Documented by: Aspirin (Ecotrin Ectab) 81 mg PO QAM [facility] Stop: 09/22/18 08:59 Last Admin: 08/25/18 08:50 Dose: 81 mg Documented by: Carvedilol (Coreg) 3.125 mg PO BID [facility] Stop: 09/21/18 20:59 Last Admin: 08/25/18 08:49 Dose: Not Given Documented by: Finasteride (Proscar) 5 mg PO DAILY [facility] Stop: 09/22/18 08:59 Last Admin: 08/25/18 08:50 Dose: 5 mg Documented by: Chlorothiazide Sodium 500 mg/ (Dextrose) 68 mls @ 200 mls/hr IV DAILY [facility] Stop: 09/23/18 08:59 Last Infusion: 08/25/18 09:15 Dose: Infused Documented by: Furosemide 80 mg/ Syringe 8 mls @ 4 mls/min IV DAILY [facility] Stop: 09/24/18 08:59 Last Admin: 08/25/18 08:49 Dose: 4 mls/min Documented by: Dobutamine HCl/Dextrose (Dobutamine / D5w) 500 mg in 250 mls @ 7.5 mls/hr IV .Q24H [facility]; Protocol Stop: 09/23/18 11:47 Last Admin: 08/25/18 13:12 Dose: 2.5 mcg/kg/min, 7.5 mls/hr Documented by: Morphine Sulfate (Morphine Sulfate) 2 mg IV Q4 PRN PRN Reason: Chest Pain Stop: 09/05/18 15:03 Nitroglycerin (Nitrostat) 0.4 mg SL UD PRN PRN Reason: Chest Pain Stop: 09/21/18 15:03 Ondansetron HCl (Zofran) 4 mg IV Q6H PRN PRN Reason: Nausea Stop: 09/21/18 15:03 Potassium Chloride (Klor-Con M20) 20 meq PO TID [facility] Stop: 09/24/18 13:59 Last Admin: 08/25/18 14:39 Dose: 20 meq Documented by: Spironolactone (Aldactone) 25 mg PO QAM [facility] Stop: 09/22/18 08:59 Last Admin: 08/25/18 08:50 Dose: 25 mg Documented by: Tamsulosin HCl (Flomax) 0.4 mg PO BID [facility] Stop: 09/21/18 20:59 Last Admin: 08/25/18 08:49 Dose: 0.4 mg Documented by: Warfarin Sodium (Coumadin) 2.5 mg PO DAILY@1600 [facility] Stop: 09/24/18 15:59
[2018-08-25] MEDS: WARFARIN SOD 2.5 MG TAB PO SCH (15:54)
[2018-08-26 07:19] LABS: Hematocrit (blood only) 38.3 % (42-52); Hemoglobin 13.6 g/dL (14.0-18.0); Mean Corpuscular Hgb Conc 35.5 g/dL (32-36); Mean Corpuscular Volume 87.4 fL (80-100); RDW Coefficient of Variation 19.8 % (11.5-14.5); RDW Standard Deviation 61.3 fL (36.4-46.3); Red Blood Count 4.38 M/uL (4.7-6.1); White Blood Count 7.96 K/uL (4.8-10.8)
[2018-08-26 07:28] LABS: INR 1.8 (0.9-1.1); Prothrombin Time 17.3 Seconds (9.0-12.0)
[2018-08-26 07:38] LABS: BUN Creatinine Ratio 20.1 (10-20); Calcium 8.7 mg/dl (8.5-10.1); Creatinine Clr Calc Pharmacy 40.5 ml/min; Est GFR (African American) 43.8; Est GFR (Non-African American) 37.8; Potassium 3.7 mmol/L (3.5-5.1)
[2018-08-26 07:42] LABS: Platelet Count 72 K/uL (130-400); Platelet Estimate Decreased (Normal)
[2018-08-26] MEDS: POTASSIUM CHLORIDE 20 MEQ TABCR PO SCH ×3 (08:03→19:48)
[2018-08-26] MEDS: FUROSEMIDE 80 MG in SYRINGE 0 ML IV SCH (08:03)
[2018-08-26] MEDS: ASPIRIN 81 MG ECTAB PO SCH (08:03)
[2018-08-26] MEDS: TAMSULOSIN HCL 0.4 MG CAP PO SCH ×2 (08:04→19:48)
[2018-08-26] MEDS: FINASTERIDE 5 MG TAB PO SCH (08:04)
[2018-08-26] MEDS: SPIRONOLACTONE 25 MG TAB PO SCH (08:04)
[2018-08-26] MEDS: CARVEDILOL 3.125 MG TAB PO SCH ×2 (08:04→19:46)
[2018-08-26] MEDS: CHLOROTHIAZIDE SODIUM 500 MG in DEXTROSE 5% 50 ML IV SCH (08:37)
[2018-08-26] MEDS: DOBUTamine / D5W 500 MG/250 ML BAG IV SCH (14:25)
[2018-08-26] MEDS ORDERED: LIDOCAINE 2% JELLY 5 ML TUBE ONE (14:44)
[2018-08-26] MEDS ORDERED: MoRPHine SULFATE 2 MG/ML CARP IV PRN (15:46)
--- NOTE | 2018-08-26 15:52 | Hospitalist Progress Note ---
Date of Service August 26, 2018 Assessment & Plan (1) Acute on chronic systolic (congestive) heart failure: difficult to diurese, massive volume overload likely caused by non-compliance continue dobutamine drip, Lasix, Diuril, Spironolactone fluid restriction, daily weights, monitor I/O cardiology following has a significant amount of volume to remove not much progress with Dobutamine EF is very poor at 20%, also with right heart failure very poor performance status, profoundly weak, poor appetite discussed changing to palliative approach today with patient and in agreement make DNR continue all the above medications for now (2) Acute kidney injury: Cr up to 1.65 due to diuresis making adequate urine via lindo (3) Hypokalemia: improved to 3.7 continue 20mEq TID repeat tomorrow (4) CKD (chronic kidney disease): stage III chronically currently Cr up to 1.65 with diuresis, continue to monitor (5) Status post placement of cardiac pacemaker: with recent adjustment will consult Dr Amin; appreciate input (6) BPH (benign prostatic hyperplasia): pt has no urinary symptoms but due to his complaints of weakness of his lower extremities, will continue flomax and proscar lindo was placed due to retention continue indefinitely for now due to weakness, palliative approach (7) Abnormal LFTs: bili trending down likely due to hepatic congestion in setting of heart failure (8) Cardiomyopathy: chronic issue, EF 20% will change to palliative approach (9) Atrial fibrillation: chronic watch for tachycardia on dobutamine continue Coumadin, INR only 1.8 again today repeat in the AM (10) NICM (nonischemic cardiomyopathy): (11) DVT prophylaxis: Coumadin Subjective lindo placed last night, patient c/o sensation of needing to go to the bathroom appetite is very poor, only a few bites of pudding updated his at the bedside discussed that progress is very slow, not improving much with Dobutamine has a great deal of fluid to remove breathing is stable, most of the volume is right sided reviewed labs, Cr stable at 1.[address] Amin and Shanthi Wheatley with heart failure clinic not improving as expected, recommending a palliative approach discussed with patient, he was very lethargic, not really understanding que sheryl discussed with his over the phone, she agreed with palliative approach, stated that he should be DNR palliative care will see him tomorrow, d/w Evette MITTAL Review of Systems All systems reviewed & are unremarkable except as noted in HPI & below Constitutional: + fatigue, + weakness and + weight gain Respiratory: + dyspnea and + dyspnea on exertion Cardiovascular: + orthopnea and + edema (entire legs up to the hips); no chest pain Musculoskeletal: + muscle weakness (diffuses, profound weakness, cannot transfer independently) Integumentary: + wounds (right ankle wound) Physical Exam Vital Signs (Past 24 Hours): Last Vital Signs Temp 37.1 C 08/26/18 15:21 Pulse 80 08/26/18 15:21 Resp 16 08/26/18 15:21 BP 91/58 L 08/26/18 15:21 Pulse Ox 97 08/26/18 15:21 Constitutional: WD/WN, vitals as above Eyes: PERRL, conjunctivae normal, anicteric sclerae ENMT: external ear and nose normal, oropharynx normal Neck: trachea midline, no thyromegaly Respiratory: normal respiratory effort; no respiratory distress Auscultation: + diminished lung sounds (bases) and + rales (bases) Cardiovascular: Rate/Rhythm: regular rate and regular rhythm Heart Sounds: no murmur Vessels: + JVD and normal peripheral pulses Extremities: + edema (pitting to the hips bilaterally) Gastrointestinal (Abdomen): normal bowel sounds, soft, nontender, no hepatosplenomegaly Musculoskeletal: Head/Neck/Chest: normocephalic and head atraumatic Extremities: + abnormal strength (profound weakness in legs and arms); no cyanosis and no clubbing Skin: no rashes, warm and dry + wound (right ankle, dressed, not weaping) Neurologic: PERRL, EOMI, accommodation nl, no face palsy, no dysarthria normal touch/pain/proprioception and CN's II-XI intact bilaterally Psychiatric: Orientation: alert and oriented x 3 Affect: + flat affect Lymphatic: no cervical or axillary lymphadenopathy Results & Data Laboratory Results Laboratory Results - last 24 hr 08/26/18 08/26/18 08/26/18 07:04 07:04 07:04 WBC 7.96 RBC 4.38 L Hgb 13.6 L Hct 38.3 L MCV 87.4 MCH 31.1 MCHC 35.5 RDW Std Deviation 61.3 H RDW Coeff of Thor 19.8 H Plt Count 72 L MPV 10.0 Platelet Estimate Decreased PT 17.3 H INR 1.8 H Sodium 132 L Potassium 3.7 Chloride 95 L Carbon Dioxide 26 Anion Gap 11.0 BUN 33 H Creatinine 1.65 H Est Cr Clr Drug Dosing 40.5 Est GFR ( Amer) 43.8 Est GFR (Non-Af Amer) 37.8 BUN/Creatinine Ratio 20.1 H Glucose 80 Calcium 8.7 Medications Administered Current Inpatient Medications Acetaminophen (Tylenol) 650 mg PO Q4H PRN PRN Reason: Pain or Fever Stop: 09/21/18 15:03 Al Hydrox/Mg Hydrox/Simethicone (Maalox) 15 ml PO Q4H PRN PRN Reason: Dyspepsia Stop: 09/21/18 15:03 Last Admin: 08/24/18 05:41 Dose: 15 ml Documented by: Aspirin (Ecotrin Ectab) 81 mg PO QAM [facility] Stop: 09/22/18 08:59 Last Admin: 08/26/18 08:03 Dose: 81 mg Documented by: Carvedilol (Coreg) 3.125 mg PO BID [facility] Stop: 09/21/18 20:59 Last Admin: 08/26/18 08:04 Dose: 3.125 mg Documented by: Finasteride (Proscar) 5 mg PO DAILY [facility] Stop: 09/22/18 08:59 Last Admin: 08/26/18 08:04 Dose: 5 mg Documented by: Chlorothiazide Sodium 500 mg/ (Dextrose) 68 mls @ 200 mls/hr IV DAILY [facility] Stop: 09/23/18 08:59 Last Infusion: 08/26/18 09:01 Dose: Infused Documented by: Furosemide 80 mg/ Syringe 8 mls @ 4 mls/min IV DAILY [facility] Stop: 09/24/18 08:59 Last Admin: 08/26/18 08:03 Dose: 4 mls/min Documented by: Dobutamine HCl/Dextrose (Dobutamine / D5w) 500 mg in 250 mls @ 7.5 mls/hr IV .Q24H [facility]; Protocol Stop: 09/23/18 11:47 Last Admin: 08/26/18 14:25 Dose: 2.5 mcg/kg/min, 7.5 mls/hr Documented by: Lidocaine HCl (Xylocaine Jely 2%) 0 ml EXT Q4 PRN PRN Reason: Pain Stop: 09/25/18 14:33 Morphine Sulfate (Morphine Sulfate) 2 mg IV Q4 PRN PRN Reason: Pain Stop: 09/05/18 15:03 Nitroglycerin (Nitrostat) 0.4 mg SL UD PRN PRN Reason: Chest Pain Stop: 09/21/18 15:03 Ondansetron HCl (Zofran) 4 mg IV Q6H PRN PRN Reason: Nausea Stop: 09/21/18 15:03 Potassium Chloride (Klor-Con M20) 20 meq PO TID [facility] Stop: 09/24/18 13:59 Last Admin: 08/26/18 14:26 Dose: 20 meq Documented by: Spironolactone (Aldactone) 25 mg PO QAM [facility] Stop: 09/22/18 08:59 Last Admin: 08/26/18 08:04 Dose: 25 mg Documented by: Tamsulosin HCl (Flomax) 0.4 mg PO BID [facility] Stop: 09/21/18 20:59 Last Admin: 08/26/18 08:04 Dose: 0.4 mg Documented by: Warfarin Sodium (Coumadin) 2.5 mg PO DAILY@1600 [facility] Stop: 09/24/18 15:59 Last Admin: 08/25/18 15:54 Dose: 2.5 mg Documented by:
--- NOTE | 2018-08-26 16:50 | Cardiology Progress Note ---
Date of Service August 26, 2018 Assessment & Plan (1) Acute on chronic systolic (congestive) heart failure: He presented massively fluid overloaded, I suspect this is on the basis of noncompliance although even with aggressive management we have not been successful in eliminating much fluid. Starting dobutamine appeared to help with his diuresis initially but he is still not lost a lot of weight. His creatinine had risen suggesting a low flow state, it is slightly higher today but not much. I am not sure there is a lot more that we can do at I think palliative care is a reasonable option at this point. (2) NICM (nonischemic cardiomyopathy): We have struggled to maintain his heart failure medications, he evidently discontinued his carvedilol. He is very vague in his history about that. We will gradually try to reintroduce his medications but his blood pressure is on the low side and I do not think we will be able to achieve high doses. (3) Atrial fibrillation: He is in permanent atrial fibrillation and needs to remain on anticoagulation. (4) Elevated troponin: His troponin is more elevated this admission than it was last time but still not very high, there is no particular trend. I would not perform any further evaluation at this time. Subjective He appears to be doing worse today. He seems to be less communicative, he apparently had a bad night and he is not been putting out much fluid. He is not having chest discomfort or shortness of breath. Physical Exam Vital Signs (Past 24 Hours): Last Vital Signs Temp 37.1 C 08/26/18 15:21 Pulse 80 08/26/18 15:21 Resp 16 08/26/18 15:21 BP 91/58 L 08/26/18 15:21 Pulse Ox 97 08/26/18 15:21 Physical Exam: Constitutional: Alert, cooperative and in no distress. Pulmonary: Clear to auscultation bilaterally. Cardiac: Regular rhythm with no murmur, gallop or rub. Abdomen: Soft, nontender with normal bowel sounds. Extremities: +3 bilateral pitting pretibial edema. Skin: No rash, ecchymoses or petechiae. Results & Data Diagnostic Findings Telemetry: Ventricular paced rhythm
[2018-08-26] MEDS: WARFARIN SOD 2.5 MG TAB PO SCH (17:36)
[2018-08-26] MEDS: LIDOCAINE 2% JELLY 5 ML TUBE EXT PRN (19:57)
[2018-08-27] MEDS: ACETAMINOPHEN 65 ML IV SCH ×3 (04:30→20:05)
[2018-08-27] MEDS: LIDOCAINE 2% JELLY 5 ML TUBE EXT PRN (04:54)
[2018-08-27 05:51] LABS: Prothrombin Time 19.3 Seconds (9.0-12.0)
[2018-08-27] MEDS: FUROSEMIDE 80 MG in SYRINGE 0 ML IV SCH (07:55)
[2018-08-27] MEDS: ASPIRIN 81 MG ECTAB PO SCH (07:56)
[2018-08-27] MEDS: TAMSULOSIN HCL 0.4 MG CAP PO SCH ×2 (07:56→19:35)
[2018-08-27] MEDS: POTASSIUM CHLORIDE 20 MEQ TABCR PO SCH ×4 (07:56→19:40)
[2018-08-27] MEDS: SPIRONOLACTONE 25 MG TAB PO SCH (07:56)
[2018-08-27] MEDS: CARVEDILOL 3.125 MG TAB PO SCH ×2 (07:56→19:34)
[2018-08-27] MEDS: FINASTERIDE 5 MG TAB PO SCH (07:57)
[2018-08-27] MEDS: CHLOROTHIAZIDE SODIUM 500 MG in DEXTROSE 5% 50 ML IV SCH (08:02)
--- NOTE | 2018-08-27 13:35 | Palliative Care Consultation ---
Date of Consultation August 27, 2018 Assessment & Plan (1) Goals of care, counseling/discussion: -83 year old male with PMH nonischemic cardiomyopathy, chronic systolic congestive heart failure with EF 15-20%, CKD, biventricular ICD, and others, presented to the hospital with increased lower extremity edema. Patient was massively volume overloaded upon admission. Was admitted to telemetry unit for diuresis with IV Lasix. Dobutamine infusion started in hopes of improving cardio-renal status, but unfortunately patient has not been able to get rid of much fluid. He is end-stage. Palliative care saw patient back in May, but he was still doing pretty well functionally at that time, went [place] with [place]. Now, functional status continues to decline rapidly. Palliative care is consulted to discuss goals of care. -Met with patient and his , Linnette, this morning. Patient is awake but confused in bed. Linnette states that they understand patient is not going to get better and she wants to take him home on hospice. Patient stated he did not want to in the hospital. -Case management working on setting up hospice agency. Patient's will need equipment in the home. Their son lives at home as well. -Patient will likely not be getting out of bed with his profound weakness, which I discussed with Linnette. Would continue to [place] catheter. -Continue current treatment with dobutamine to give patient the best chance of making it home. -Would utilize Roxanol 5mg PO/SL Q3h PRN pain or SOB. -Continue all other medications as tolerated for now. aware that he will not likely be able to take pills at home. -Will continue to follow as needed. (2) Acute on chronic systolic (congestive) heart failure: (3) Acute kidney injury: (4) Lower extremity edema: Supervising Physician Co-Signing Physician Notes Patient known to me from his admission in May. Patient's not at bedside Chart reviewed, patient seen and examined, collaborated with OSCAR Maloney Nursing at bedside-patient pulled out his IV-will need to be restarted due to IV dobutamine PE: Patient slightly restless, denies discomfort HEENT: EOMI, hearing within normal limits Respirations: Grunting expiratory respirations, diminished breath sounds on left CV: Regular rate, 3-4+ pitting edema lower extremities Abdomen: Soft, nontender Neuro: Patient confused, restless at times Agree with above note, assessment and plan as per OSCAR Maloney. Will continue to follow and assist with medical decision making History of Present Illness Attending Physician: Kedar Zavaleta DO History of Present Illness This 83 year old male with PMH nonischemic cardiomyopathy, chronic systolic congestive heart failure with EF 15-20%, CKD, biventricular ICD, and others, presented to the hospital with increased lower extremity edema. Patient was massively volume overloaded upon admission. Was admitted to telemetry unit for diuresis with IV Lasix. Dobutamine infusion started in hopes of improving cardio-renal status, but unfortunately patient has not been able to get rid of m uch fluid. He is end-stage. Palliative care saw patient back in May, but he was still doing pretty well functionally at that time, went home with his on their farm. Now, functional status continues to decline rapidly. Palliative care is consulted to discuss goals of care. Thank you kindly for this consult. I will follow as needed. Allergies Allergy/AdvReac Type Severity Reaction Status Date / Time atorvastatin Allergy Unknown GI SYMPTOMS Verified 08/22/18 11:26 simvastatin Allergy Unknown GI SYMPTOMS Verified 08/22/18 11:26 Home Medications Home Medications Medication Instructions Recorded Confirmed Type furosemide 40 mg PO DAILY 05/16/18 08/22/18 History tamsulosin 0.4 mg PO BID 05/16/18 08/22/18 History finasteride 5 mg PO DAILY 08/22/18 08/22/18 History warfarin 2.5 mg PO DAILY 08/22/18 08/22/18 History Patient History Medical History Lower extremity edema Biventricular ICD (implantable cardioverter-defibrillator) in place CHF (congestive heart failure) (Chronic) 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 Acetabular fracture BPH (benign prostatic hyperplasia) CKD (chronic kidney disease) Hypertension UTI (urinary tract infection) Urinary retention Urinary tract infection Surgical History Status post placement of cardiac pacemaker (Resolved) Biventricular ICD Previous back surgery S/P knee surgery Family History Other Cancer Heart attack Heart disease No pertinent family history Social History Communication Ability: Effective Beliefs That Will Affect Care: None marital status: Current Living Situation: Spouse Other Information That Helps Us Care for You: No Feels Safe at Home: Yes Safety Concerns: Feels Safe At This Time Smoking Status: Never smoker Hx Alcohol Use: No Hx Substance Use: No Review of Systems Constitutional: + weakness Ear, Nose, Mouth, Throat: no dysphagia Respiratory: no cough and no dyspnea Cardiovascular: + edema; no chest pain Gastrointestinal: no abdominal pain and no nausea Psychiatric: no anxiety Physical Exam Vital Signs (Past 24 Hours): Last Vital Signs Temp 36.8 C 08/27/18 11:20 Pulse 94 H 08/27/18 11:20 Resp 16 08/27/18 11:20 BP 91/82 L 08/27/18 11:20 Pulse Ox 92 08/27/18 11:20 Constitutional: + ill appearing; no acute distress ENMT: Mouth: + dry oral mucous membranes and + poor dentition Neck: normal visual inspection Respiratory: normal respiratory effort; no respiratory distress Auscultation: + diminished lung sounds (bases) Cardiovascular: Rate/Rhythm: regular rate and regular rhythm Heart Sounds: no murmur Extremities: + edema (+4 pitting edema to BLE) Gastrointestinal (Abdomen): Inspection/Auscultation: abdomen normal to inspection and normal bowel sounds; abdomen not distended Percussion/Palpation: abdomen soft Musculoskeletal: Extremities: + abnormal strength (profound weakness in legs and arms); no cyanosis Skin: + jaundice Neurologic: moves all extremities, awake and + confused Psychiatric: Orientation: + not oriented x 3 Time Spent Midlevel 70 minutes with >50% of time spent at bedside with patient and discussing condition and GOC, as well as collaborating with IDT to coordinate care.
--- NOTE | 2018-08-27 14:56 | Hospitalist Progress Note ---
Date of Service August 27, 2018 Assessment & Plan (1) Acute on chronic systolic (congestive) heart failure: difficult to diurese, massive volume overload likely caused by non-compliance continue dobutamine drip, Lasix, Diuril, Spironolactone fluid restriction, daily weights, monitor I/O cardiology following has a significant amount of volume to remove not much progress with Dobutamine EF is very poor at 20%, also with right heart failure very poor performance status, profoundly weak, poor appetite patient and would like to go home on hospice palliative care helping with setting up tomorrow keep on tele on dobutamine to keep him stable until arrangements can be made (2) Acute kidney injury: Cr up to 1.65 due to diuresis no further labs given plans for hospice keep lindo for ease of care (3) Hypokalemia: improved to 3.7 on 08/26 no further labs (4) CKD (chronic kidney disease): stage III chronically currently Cr up to 1.65 with diuresis (5) Status post placement of cardiac pacemaker: with recent adjustment will consult Dr Amin; appreciate input (6) BPH (benign prostatic hyperplasia): pt has no urinary symptoms but due to his complaints of weakness of his lower extremities, will continue flomax and proscar lindo was placed due to retention continue indefinitely for now due to weakness, palliative approach (7) Abnormal LFTs: bili trending down likely due to hepatic congestion in setting of heart failure (8) Cardiomyopathy: chronic issue, EF 20% will change to palliative approach (9) Atrial fibrillation: chronic watch for tachycardia on dobutamine continue Coumadin, INR only 1.8 again today repeat in the AM (10) NICM (nonischemic cardiomyopathy): (11) DVT prophylaxis: Coumadin, can stop on discharge Subjective discussed going on hospice with patient, he just wants to go home palliative care met with patient and his , want to set up home hospice will need hospital bed discussed with cardiology, will keep on dobutamine for now until he can go home no labs will prepare for d/c to home tomorrow Review of Systems All systems reviewed & are unremarkable except as noted in HPI & below Constitutional: + fatigue, + weakness and + weight gain Respiratory: + dyspnea and + dyspnea on exertion Cardiovascular: + orthopnea and + edema (entire legs up to the hips); no chest pain Musculoskeletal: + muscle weakness (diffuses, profound weakness, cannot transfer independently) Integumentary: + wounds (right ankle wound) Physical Exam Vital Signs (Past 24 Hours): Last Vital Signs Temp 36.8 C 08/27/18 11:20 Pulse 94 H 08/27/18 11:20 Resp 16 08/27/18 11:20 BP 91/82 L 08/27/18 11:20 Pulse Ox 92 08/27/18 11:20 Constitutional: WD/WN, vitals as above Eyes: PERRL, conjunctivae normal, anicteric sclerae ENMT: external ear and nose normal, oropharynx normal Neck: trachea midline, no thyromegaly Respiratory: normal respiratory effort; no respiratory distress Auscultation: + diminished lung sounds (bases) and + rales (bases) Cardiovascular: Rate/Rhythm: regular rate and regular rhythm Heart Sounds: no murmur Vessels: + JVD and normal peripheral pulses Extremities: + edema (pitting to the hips bilaterally) Gastrointestinal (Abdomen): normal bowel sounds, soft, nontender, no hepatosplenomegaly Musculoskeletal: Head/Neck/Chest: normocephalic and head atraumatic Extremities: + abnormal strength (profound weakness in legs and arms); no cyanosis and no clubbing Skin: no rashes, warm and dry + wound (right ankle, dressed, not weaping) Neurologic: PERRL, EOMI, accommodation nl, no face palsy, no dysarthria normal touch/pain/proprioception and CN's II-XI intact bilaterally Psychiatric: Orientation: alert and oriented x 3 Affect: + flat affect Lymphatic: no cervical or axillary lymphadenopathy Results & Data Laboratory Results Laboratory Results - last 24 hr 08/27/18 05:22 PT 19.3 H INR 2.0 H Medications Administered Current Inpatient Medications Acetaminophen (Tylenol) 650 mg PO Q4H PRN PRN Reason: Pain or Fever Stop: 09/21/18 15:03 Al Hydrox/Mg Hydrox/Simethicone (Maalox) 15 ml PO Q4H PRN PRN Reason: Dyspepsia Stop: 09/21/18 15:03 Last Admin: 08/24/18 05:41 Dose: 15 ml Documented by: Aspirin (Ecotrin Ectab) 81 mg PO QAM [facility] Stop: 09/22/18 08:59 Last Admin: 04/16/19 07:56 Dose: Not Given Documented by: Carvedilol (Coreg) 3.125 mg PO BID [facility] Stop: 09/21/18 20:59 Last Admin: 08/27/18 07:56 Dose: Not Given Documented by: Finasteride (Proscar) 5 mg PO DAILY [facility] Stop: 09/22/18 08:59 Last Admin: 08/27/18 07:57 Dose: Not Given Documented by: Chlorothiazide Sodium 500 mg/ (Dextrose) 68 mls @ 200 mls/hr IV DAILY [facility] Stop: 09/23/18 08:59 Last Admin: 08/27/18 08:02 Dose: Not Given Documented by: Furosemide 80 mg/ Syringe 8 mls @ 4 mls/min IV DAILY [facility] Stop: 09/24/18 08:59 Last Admin: 08/27/18 07:55 Dose: 4 mls/min Documented by: Dobutamine HCl/Dextrose (Dobutamine / D5w) 500 mg in 250 mls @ 7.5 mls/hr IV .Q24H [facility]; Protocol Stop: 09/23/18 11:47 Last Titration: 08/27/18 07:05 Dose: 2.5 mcg/kg/min, 7.5 mls/hr Documented by: Acetaminophen (Ofirmev) 65 mls @ 200 mls/hr IV Q8H [facility] Stop: 09/26/18 04:29 Last Infusion: 08/27/18 14:10 Dose: Infused Documented by: Lidocaine HCl (Xylocaine Jely 2%) 0 ml EXT Q4 PRN PRN Reason: Pain Stop: 09/25/18 14:33 Last Admin: 08/27/18 04:54 Dose: 5 ml Documented by: Morphine Sulfate (Morphine Sulfate) 2 mg IV Q4 PRN PRN Reason: Pain Stop: 09/05/18 15:03 Nitroglycerin (Nitrostat) 0.4 mg SL UD PRN PRN Reason: Chest Pain Stop: 09/21/18 15:03 Ondansetron HCl (Zofran) 4 mg IV Q6H PRN PRN Reason: Nausea Stop: 09/21/18 15:03 Potassium Chloride (Klor-Con M20) 20 meq PO TID [facility] Stop: 09/24/18 13:59 Last Admin: 08/27/18 13:49 Dose: Not Given Documented by: Spironolactone (Aldactone) 25 mg PO QAM [facility] Stop: 09/22/18 08:59 Last Admin: 08/27/18 07:56 Dose: Not Given Documented by: Tamsulosin HCl (Flomax) 0.4 mg PO BID [facility] Stop: 09/21/18 20:59 Last Admin: 08/27/18 07:56 Dose: Not Given Documented by: Warfarin Sodium (Coumadin) 2.5 mg PO DAILY@1600 [facility] Stop: 09/24/18 15:59 Last Admin: 08/26/18 17:36 Dose: Not Given Documented by:
[2018-08-27] MEDS: WARFARIN SOD 2.5 MG TAB PO SCH (17:25)
[2018-08-27] MEDS: DOBUTamine / D5W 500 MG/250 ML BAG IV SCH ×2 (19:34→23:05)
[2018-08-27] MEDS ORDERED: KETOROLAC TROMETHAMINE 15 MG/ML VIAL IV PRN (22:35)
[2018-08-27] MEDS ORDERED: KETOROLAC TROMETHAMINE 15 MG/ML VIAL ONE (22:47)
[2018-08-28] MEDS: LIDOCAINE 2% JELLY 5 ML TUBE EXT PRN (00:04)
[2018-08-28] MEDS: ACETAMINOPHEN 65 ML IV SCH ×2 (04:23→12:34)
[2018-08-28] MEDS: FINASTERIDE 5 MG TAB PO SCH (09:49)
[2018-08-28] MEDS: SPIRONOLACTONE 25 MG TAB PO SCH (09:49)
[2018-08-28] MEDS: CHLOROTHIAZIDE SODIUM 500 MG in DEXTROSE 5% 50 ML IV SCH (09:49)
[2018-08-28] MEDS: CARVEDILOL 3.125 MG TAB PO SCH (09:49)
[2018-08-28] MEDS: POTASSIUM CHLORIDE 20 MEQ TABCR PO SCH ×2 (09:49→15:41)
[2018-08-28] MEDS: ASPIRIN 81 MG ECTAB PO SCH (09:49)
[2018-08-28] MEDS: TAMSULOSIN HCL 0.4 MG CAP PO SCH (09:49)
[2018-08-28] MEDS: FUROSEMIDE 80 MG in SYRINGE 0 ML IV SCH (09:50)
--- NOTE | 2018-08-28 15:12 | Palliative Care Progress Note ---
Date of Service August 28, 2018 Assessment & Plan (1) Goals of care, counseling/discussion: -83 year old male with end-stage heart failure. -Plan is for home with hospice today. -Patient seen today in conjunction with hospice nurse. Heart rate normal, respirations mildly labored, but regular rate and rhythm. Stable for discharge at this time. -He will be discharged this afternoon. -Dobutamine infusing until discharge. (2) Acute on chronic systolic (congestive) heart failure: (3) Acute kidney injury: (4) Lower extremity edema: Subjective Patient more confused today. Awake and slightly SOB at rest. Plan is for home with hospice today. Review of Systems Review of Systems: Unobtainable due to cognitive status Physical Exam Constitutional: + ill appearing; no acute distress ENMT: Mouth: + dry oral mucous membranes and + poor dentition Neck: normal visual inspection Respiratory: normal respiratory effort; no respiratory distress Auscultation: + diminished lung sounds (bases) Cardiovascular: Rate/Rhythm: regular rate and regular rhythm Heart Sounds: no murmur Extremities: + edema (+4 pitting edema to BLE) Gastrointestinal (Abdomen): Inspection/Auscultation: abdomen normal to inspection and normal bowel sounds; abdomen not distended Percussion/Palpation: abdomen soft Musculoskeletal: Extremities: + abnormal strength (profound weakness in legs and arms); no cyanosis Skin: + jaundice Neurologic: moves all extremities, awake and + confused Psychiatric: Orientation: + not oriented x 3 Results & Data Vital Signs (Past 12 Hours) Vital Signs Temp Pulse Pulse Resp BP BP Pulse Ox 08/28/18 12:07 36.4 C L 75 83 16 83/45 L 96/48 L 96 08/28/18 11:26 36.4 C L 83 16 96/48 L 96 08/28/18 07:21 36.3 C L 79 16 83/45 L 93 Time Spent Midlevel 35 minutes with >50% of time spent at bedside with patient and IDT discussing case and hospice care.
--- NOTE | 2018-08-28 15:59 | Discharge Summary ---
Date of Service August 28, 2018 Admission HPI Per Admitting Provider Mr. Rojas is an 83-year-old male with a history of an Idiopathic Cardiomyopathy (EF=15% to 20%) s/p Bi-V AICD, Chronic Systolic CHF, Permanent Atrial Fibrillation s/p A-Fib Ablation 2005 (on Warfarin / Carvedilol), patient states he had his called the ambulance today as he was feeling increasing weakness of his lower extremities and difficulty getting out of his chair. The patient suffers from the above listed heart failure with massive lower extremity edema and most recently has developed some ulcerations on his right lateral ankle. He says he is having some disagreement with his and she is complaining that she does not know how to take care of his ankle wound. When please the patient regarding his weights if he monitors them he says no he does not like numbers and I asked about eating a low-salt diet he says he eats whatever his gives him. Upon evaluation in the emergency department physician was concerned he may have heart failure however despite having an abnormal chest x-ray his oxygen saturations were 98% on room air on intake he was in a paced rhythm blood pressure was stable on my examination had very little JVD. The patient also states he is able lay flat in bed at night. He states that his legs are about the usual size for him to the left one may be slightly bigger than it has been typically. Because of the massive lower extremity edema difficulty ambulation and elevation of his troponin as well as a likely congestive hepatopathy with bilirubin being elevated the patient will be brought in our facility for wound care attention attempts of diuresis and reevaluation by cardiology Admission Exam Per Admitting Provider The patient appeared chronically ill Vital signs as documented. He was not hypoxic on room air Head exam is unremarkable. normocephalic, atraumatic Neck is without jugular venous distension, thyromegaly, or lymphademopathy Lungs he has some mild rales at the base dullness towards the left base good air movement Cardiac exam reveals a tachycardic rhythm with a systolic murmur and a displaced lateral enlarged PMI Abdominal exam reveals normal bowel sounds, no masses, I could not appreciate hepatomegaly but the patient may have had some HJR Extremities are massively edematous bilaterally capillary refill is preserved to his toes Neurologic exam is A&Ox3, no focal deficits, strength is equal bilateral Psychologically seems neither anxious or depressed Skin is warm Dry patient has no changes of chronic venous stasis however there is 3 dime to brigid shaped ulcerations on the right lateral ankle which are through the first layer skin Aquacel was applied by ER nursing Principal Diagnosis 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) Discharge Exam Constitutional WD/WN, vitals as above + ill appearing, + lethargic and + edematous Eyes PERRL, conjunctivae normal, anicteric sclerae ENMT external ear and nose normal, oropharynx normal Neck trachea midline, no thyromegaly Respiratory normal respiratory effort; no respiratory distress Auscultation: + diminished lung sounds (bases) and + rales (bases) Cardiovascular Rate/Rhythm: regular rate and regular rhythm Heart Sounds: no murmur Vessels: + JVD and normal peripheral pulses Extremities: + edema (pitting to the hips bilaterally) Gastrointestinal (Abdomen) normal bowel sounds, soft, nontender, no hepatosplenomegaly Musculoskeletal Head/Neck/Chest: normocephalic and head atraumatic Extremities: + abnormal strength (profound weakness in legs and arms); no cyanosis and no clubbing Skin no rashes, warm and dry + wound (right ankle, dressed, not weaping) Neurologic PERRL, EOMI, accommodation nl, no face palsy, no dysarthria normal touch/pain/proprioception and CN's II-XI intact bilaterally Psychiatric Orientation: alert and oriented x 3 Affect: + flat affect Lymphatic no cervical or axillary lymphadenopathy Discharge Data Allergies Allergy/AdvReac Type Severity Reaction Status Date / Time atorvastatin Allergy Unknown GI SYMPTOMS Verified 08/22/18 11:26 simvastatin Allergy Unknown GI SYMPTOMS Verified 08/22/18 11:26 Consultations 08/22/18 12:38 ED Decision to Admit Stat 08/22/18 15:04 Consult Cardiology Routine 08/26/18 15:56 Consult Palliative Care Routine Hospital Course (1) Acute on chronic systolic (congestive) heart failure: difficult to diurese, massive volume overload likely caused by non-compliance treated with dobutamine drip, Lasix, Diuril, Spironolactone fluid restriction, daily weights, monitor I/O cardiology following has a significant amount of volume to remove no real progress with Dobutamine EF is very poor at 20%, also with right heart failure very poor performance status, profoundly weak, poor appetite cardiology recommended palliative route as his heart failure is end stage, not responding patient and would like to go home on hospice arrangements made with hospital bed, oxygen, supplies medications including Oxycodone, Roxanol, Ativan prescribed for comfort (2) Acute kidney injury: Cr up to 1.65 due to diuresis no further labs given plans for hospice keep lindo for ease of care (3) Hypokalemia: improved to 3.7 on 08/26 no further labs (4) CKD (chronic kidney disease): stage III chronically currently Cr up to 1.65 with diuresis (5) Status post placement of cardiac pacemaker: with recent adjustment will consult Dr Amin; appreciate input (6) BPH (benign prostatic hyperplasia): lindo was placed due to retention continue indefinitely for now due to weakness, palliative approach no further BPH medications (7) Abnormal LFTs: bili trending down likely due to hepatic congestion in setting of heart failure (8) Cardiomyopathy: chronic issue, EF 20% will change to palliative approach (9) Atrial fibrillation: chronic no further Coumadin given hospice plans (10) NICM (nonischemic cardiomyopathy): (11) DVT prophylaxis: Coumadin while he was admitted Total Time Total Time Spent Total Time Spent (In Minutes): 35 minutes Total Time Includes: Examination of the Patient, Discharge Planning and Medication Reconciliation Discharge Plan Discharge Items Patient Disposition: Hospice - Home Reason For Visit: WEAKNESS,ELEVATED TROP Discharge Diagnosis: 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 Palliative care Condition: Fair Discharge Goals: Decrease discomfort and Specific goals Specific Goals: hospice care Activity: Per 'Additional Instructions' section Activity Comment: stay in bed for comfort Non-emergency contact: Primary Care Provider Call non-emergency contact if: you have any medication questions and your symptoms worsen Follow-up/Referrals: PCP,NO [Primary Care Provider] - Diet: Regular Diet Comment: no restrictions, eat what you want for comfort Addtl Provider Instructions: Medications: all medications will be for comfort - LASIX: 40mg daily to try to keep fluid out of lungs - OXYCODONE: 5mg tablets, use for any pain - MORPHINE: liquid form, absorbed in the mouth, this is helpful for any shortness of breath, can use more often that 6 hours if still having shortness of breath - ATIVAN: use as needed for any anxiety/stress due to breathing, will give sedation End stage left and right heart failure no real response to Dobutamine, Lasix, Diuril and spironolactone heart failure has progressed to the point that you need IV medications to help improve strength of heart, cannot be maintained cardiology recommends home with hospice Keep at home and keep comfortable, the only reason to return home would be if comfort cannot be met with the above medications Keep lindo catheter since patient too weak to get up out of bed Prescriptions: New oxycodone 5 mg tablet 5 mg PO Q8H PRN (Reason: pain) Qty: 30 RF: 0 morphine 20 mg/5 mL (4 mg/mL) solution 5 mg PO Q6H PRN (Reason: shortness of breath) Qty: 100 RF: 0 lorazepam 0.5 mg tablet 0.5 mg PO Q8H PRN (Reason: anxiety) Qty: 20 RF: 0 Continued furosemide 40 mg tablet 40 mg PO DAILY RF: 0 Discontinued warfarin 2.5 mg Tablet 2.5 mg PO DAILY RF: 0 finasteride 5 mg tablet 5 mg PO DAILY RF: 0 tamsulosin 0.4 mg Capsule 0.4 mg PO BID RF: 0 Stand-Alone Forms: [facility] Discharge Orders: Discharge Order (Routine); Ordered 08/28/18 Ordered By: Kedar Zavaleta Admission Data Admit Date/Time: 08/22/18 13:10 Attending Provider: Kedar Zavaleta Admit Provider: Waqar Parks Primary Care Provider: PCP,NO Other Providers: Waqar Parks ; Fernando Amin ; Rosio Valentin Service: Medical Other Interventions: Discharge Summary Assessment (RN) Last Done: 08/28/18 12:07
== END 2018-08-28 16:35 | disposition hospice, home (50) | DRG 291 ==
LOC: ED 10:50 → 2S 13:10 → SUATTDRO 13:10 → 2S 14:08